=== PATIENT | female | born 1940 | race Caucasian/White ===

== ENCOUNTER 2018-06-25 07:40 | Emergency (ER) | payer MEDICARE, OTHER ==
--- NOTE | 2018-06-25 08:36 | EDM.PDOC ---
ED HPI GENERAL MEDICAL PROBLEM - General Chief Complaint: Upper Extremity Injury/Pain Stated Complaint: LEFT FINGER INJURY Time Seen by Provider: 06/25/18 08:10 Source of Information: Reports: Patient History Limitations: Reports: No Limitations - History of Present Illness INITIAL COMMENTS - FREE TEXT/NARRATIVE: The patient set down her purse at the door and she tripped on the straps and she tried to catch herself and caught her left little finger on the door frame. There is a slight deformity to her left little finger. She denies other injuries. She did not hit her head or hurt her neck. She did not fall. She is right handed. Onset: Gradual Duration: Minutes: Location: Reports: Upper Extremity, Left (little finger) Quality: Reports: Sharp Severity: Moderate Improves with: Reports: Immobilization Worsens with: Reports: Movement Context: Reports: Activity (She tripped and caught her finger on the door frame) Left 5-Little finger Pain Score (Numeric/FACES): 8 - Related Data Allergies Allergy/AdvReac Type Severity Reaction Status Date / Time acetaminophen [From Vicodin] AdvReac Mild Hallucinati Verified 06/25/18 07:53 ons hydrocodone bitartrate AdvReac Mild Hallucinati Verified 06/25/18 07:53 [From Vicodin] ons Home Meds: Home Meds Acebutolol [Sectral] 200 mg PO DAILY 06/11/16 [History] Albuterol [Proair HFA] 2 puff INH Q4H PRN 06/11/16 [History] Fluticasone/Salmeterol [Advair 250-50 Diskus] 50 - 250 mcg IH DAILY 06/11/16 [ History] Losartan Potassium 100 mg PO DAILY 06/11/16 [History] Montelukast [Singulair] 10 mg PO DAILY 06/11/16 [History] Omeprazole 20 mg PO DAILY 06/11/16 [History] Pregabalin [Lyrica] 25 mg PO BEDTIME 06/11/16 [History] amLODIPine Besylate [Norvasc] 2.5 mg PO DAILY #30 tablet 06/11/16 [Rx] hydroCHLOROthiazide [Hydrochlorothiazide] 25 mg PO DAILY 06/11/16 [History] prednisoLONE Acetate [Pred Forte] 1 drop EYELF TID 06/11/16 [History] traMADol [Ultram] 50 mg PO Q6H PRN #20 tab 06/25/18 [Rx] Past Medical History HEENT History: Reports: Cataract, Impaired Vision, Other (See Below) Other HEENT History: strep throat, wears reading glasses, "hystoplasmosis left eye" Cardiovascular History: Reports: Heart Murmur, Hypertension, Other (See Below) Other Cardiovascular History: mitral valve prolapse. Respiratory History: Reports: Asthma Other Gastrointestinal History: Inguinal hernias x3 Genitourinary History: Reports: UTI, Recurrent VP PRODUCTION History: Reports: Other VP PRODUCTION History: , hysterectomy Musculoskeletal History: Reports: Fracture Other Musculoskeletal History: tailbone, L) ankle. Hematologic History: Reports: Anemia - Infectious Disease History Infectious Disease History: Reports: Chicken Pox, Measles, Mumps - Past Surgical History HEENT Surgical History: Reports: Cataract Surgery GI Surgical History: Reports: Appendectomy Female Surgical History: Reports: Section, Hysterectomy Musculoskeletal Surgical History: Reports: Hip Replacement, Knee Replacement, Other (See Below) Other Musculoskeletal Surgeries/Procedures:: back surgery. Social & Family History - Tobacco Use Smoking Status *Q: Never Smoker Second Hand Smoke Exposure: No - Caffeine Use Caffeine Use: Reports: Tea - Recreational Drug Use Recreational Drug Use: No Review of Systems - Review of Systems Review Of Systems: See Below Constitutional: Reports: No Symptoms Eyes: Reports: No Symptoms Ears: Reports: No Symptoms Nose: Reports: No Symptoms Mouth/Throat: Reports: No Symptoms Respiratory: Reports: No Symptoms Cardiovascular: Reports: No Symptoms GI/Abdominal: Reports: No Symptoms Genitourinary: Reports: No Symptoms Musculoskeletal: Reports: Other (Left little finger pain) ED EXAM, GENERAL - Physical Exam Exam: See Below Exam Limited By: No Limitations General Appearance: Alert, No Apparent Distress Ears: Normal External Exam Nose: Normal Inspection Head: Atraumatic, Normocephalic Neck: Normal Inspection Respiratory/Chest: No Respiratory Distress Extremities: Other (Ecchymosis to the volar aspect of the left 5th finger. Pain upon palpation. Good sensation and capillary reill. The PIP joint is extended and the DIP joint is flexed. The patient cannot flex her finger.) Course - Vital Signs Last Recorded V/S: Last Vital Signs Temp 98.6 F 06/25/18 07:45 Pulse 72 06/25/18 07:45 Resp 16 06/25/18 07:45 BP 210/108 H 06/25/18 07:45 Pulse Ox 93 L 06/25/18 07:45 - Orders/Labs/Meds Orders: Active Orders 24 hr Category Date Time Status Hand Comp Min 3V Lt [CR] Stat Exams 06/25/18 08:03 Taken - Re-Assessments/Exams Free Text/Narrative Re-Assessment/Exam: 06/25/18 08:41 Her x-ray shows no fracture. I feel she has a flexor tendon rupture. I will put her in a finger splint and have her follow up with Dr Ross or one of his partners. Departure - Departure Time of Disposition: 08:45 Disposition: Home, Self-Care 01 Condition: Good Clinical Impression: Injury of flexor tendon of left hand Qualifiers: Encounter type: initial encounter Qualified Code(s): S66.802A - Unspecified injury of other specified muscles, fascia and tendons at wrist and hand level, left hand, initial encounter - Discharge Information *PRESCRIPTION DRUG MONITORING PROGRAM REVIEWED*: No *COPY OF PRESCRIPTION DRUG MONITORING REPORT IN PATIENT BRITTANI: No Prescriptions: traMADol [Ultram] 50 mg PO Q6H PRN #20 tab PRN Reason: Pain Referrals: Bart Antoine Jr, MD [Primary Care Provider] - David Ross MD [Consulting Physician] - 1 Week Additional Instructions: Ice your finger for 15 minutes 3 times per day for 2 days. Wear the splint for comfort. Take motrin or tylenol for pain. You may also take a tramadol for pain. Call Dr [facility] to follow up or with one of his partners. - My Orders Last 24 Hours: My Active Orders 06/25/18 08:03 Hand Comp Min 3V Lt [CR] Stat - Assessment/Plan Last 24 Hours: My Active Orders 06/25/18 08:03 Hand Comp Min 3V Lt [CR] Stat
[2018-06-25 08:42] VITALS: BP 150/81
[2018-06-25] MEDS ORDERED: traMADol 50 MG Tab PO ONE (08:42)
--- NOTE | 2018-06-28 10:03 | CR ---
Left hand: Four views of the left hand were obtained. Comparison: No previous hand study. Scattered joint space narrowing is noted within the DIP, PIP and within several MCP joints. Severe joint space narrowing is noted within the CMC joint of the thumb. Bony structures are osteopenic. There is abnormal angulation being seen within the MCP joint of the thumb likely representing soft tissue ligament laxity if patient has no acute injury to the thumb. No acute abnormality is suspected. Impression: 1. Degenerative change as noted above. Osteopenia. Diagnostic code #2
== END 2018-06-25 08:50 | disposition home or self-care (01) ==
LOC: JD.ED 07:40
DX: S66.107A Unspecified injury of flexor muscle, fascia and tendon of left little finger at wrist and hand level, initial encounter (principal); S60.052A Contusion of left little finger without damage to nail, initial encounter; W23.1XXA Caught, crushed, jammed, or pinched between stationary objects, initial encounter; Z88.8 Allergy status to other drugs, medicaments and biological substances; Z79.899 Other long term (current) drug therapy
CPT/HCPCS: 73130; 99284; A9270; 99283

== ENCOUNTER 2020-06-27 13:38 | Inpatient (IN) | payer MEDICARE, OTHER ==
[2020-06-27] MEDS ORDERED: Ondansetron 4 MG/2 ML SDV IVPUSH ONE (14:17)
[2020-06-27] MEDS ORDERED: Sodium Chloride 0.9% 10 ML Syringe FLUSH PRN (14:17)
--- NOTE | 2020-06-27 14:22 | EDM.PDOC ---
ED HPI GENERAL MEDICAL PROBLEM - General Chief Complaint: Respiratory Problem Stated Complaint: FEVER/UNABLE TO EAT/NAUSEA/VOMITING Time Seen by Provider: 06/27/20 13:46 Source of Information: Reports: Patient History Limitations: Reports: No Limitations - History of Present Illness INITIAL COMMENTS - FREE TEXT/NARRATIVE: The patient presents with a cough, fever, nausea, vomiting, diarrhea and shortness of breath. She also has generalized weakness. This started last week. She saw her doctor on Sunday because she had urinary symptoms. She was put on an antibiotic. She started with the symptoms shortly after. Her temp has been low grade at about 100.7. She has been very weak and had no appetite. She has nausea, vomiting and diarrhea. She has a slight cough and shortness of breath. She has a history of asthma. She has no chest pain. She had a family member that found out 10 days ago they were positive. She was exposed to them. She has a history of mitral valve prolapse and HTN. Her oxygen saturations when they brought her back into the room were 75%. They put her on some oxygen and she went up into the low 90s. She did loose her sense of taste and smell. Onset: Gradual Duration: Week(s): Severity: Moderate Improves with: Reports: None Worsens with: Reports: None Associated Symptoms: Reports: Cough, Fever/Chills, Loss of Appetite, Nausea/Vomiting, Shortness of Breath. Denies: Chest Pain, Headaches - Related Data Allergies Allergy/AdvReac Type Severity Reaction Status Date / Time acetaminophen [From Vicodin] AdvReac Mild Hallucinati Verified 06/27/20 14:00 ons hydrocodone bitartrate AdvReac Mild Hallucinati Verified 06/27/20 14:00 [From Vicodin] ons Home Meds: Home Meds Acebutolol [Sectral] 200 mg PO DAILY 06/11/16 [History] Albuterol [Proair HFA] 2 puff INH Q4H PRN 06/11/16 [History] Fluticasone Propion/Salmeterol [Advair 250-50 Diskus] 50 - 250 mcg IH BID 06/11/16 [History] Losartan Potassium 100 mg PO DAILY 06/11/16 [History] Montelukast [Singulair] 10 mg PO BEDTIME 06/11/16 [History] Omeprazole 20 mg PO DAILY 06/11/16 [History] amLODIPine Besylate [Norvasc] 2.5 mg PO DAILY #30 tablet 06/11/16 [Rx] prednisoLONE acetate [Pred Forte] 1 drop EYELF TID 06/11/16 [History] Cholecalciferol (Vitamin D3) [Vitamin D3] 1,000 units PO DAILY 06/27/20 [History] Cyanocobalamin (Vitamin B-12) [Vitamin B-12] 1,000 mcg PO DAILY 06/27/20 [History] Famotidine 20 mg PO BEDTIME 06/27/20 [History] Lutein/Minerals/Vit A,C & E [Ocuvite] 1 tab PO DAILY 06/27/20 [History] Niacin 250 mg PO DAILY 06/27/20 [History] Ranitidine HCl [Acid Supersonic Engineer] 75 mg PO BEDTIME 06/27/20 [History] oxyCODONE 5 mg PO DAILY PRN 06/27/20 [History] Past Medical History HEENT History: Reports: Cataract, Impaired Vision, Other (See Below) Other HEENT History: strep throat, wears reading glasses, "hystoplasmosis left eye" Cardiovascular History: Reports: Heart Murmur, Hypertension, Other (See Below) Other Cardiovascular History: mitral valve prolapse. 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 Hematologic History: Reports: Anemia - Infectious Disease History Infectious Disease History: Reports: Chicken Pox, Measles, Mumps - Past Surgical History HEENT Surgical History: Reports: Cataract Surgery GI Surgical History: Reports: Appendectomy Female Surgical History: Reports: Section, Hysterectomy Musculoskeletal Surgical History: Reports: Hip Replacement, Knee Replacement, Other (See Below) Other Musculoskeletal Surgeries/Procedures:: back surgery. Social & Family History - Tobacco Use Smoking Status *Q: Never Smoker Second Hand Smoke Exposure: No - Caffeine Use Caffeine Use: Reports: None - Recreational Drug Use Recreational Drug Use: No ED ROS GENERAL - Review of Systems Review Of Systems: See Below Constitutional: Reports: Fever, Chills, Malaise, Weakness, Fatigue HEENT: Reports: No Symptoms Respiratory: Reports: Shortness of Breath, Cough Cardiovascular: Reports: No Symptoms Endocrine: Reports: Fatigue GI/Abdominal: Reports: Anorexia, Diarrhea, Nausea, Vomiting. Denies: Abdominal Pain : Reports: No Symptoms ED EXAM, GENERAL - Physical Exam Exam: See Below Exam Limited By: No Limitations General Appearance: Alert, No Apparent Distress Ears: Normal External Exam Nose: Normal Inspection Head: Atraumatic, Normocephalic Neck: Normal Inspection Respiratory/Chest: No Respiratory Distress, Decreased Breath Sounds Cardiovascular: Regular Rate, Rhythm, No Edema, No Murmur GI/Abdominal: Soft, Non-Tender, No Organomegaly, No Mass Back Exam: Normal Inspection Extremities: Normal Inspection Course - Vital Signs Last Recorded V/S: Last Vital Signs Temp 98.1 F 06/27/20 13:54 Pulse 79 06/27/20 13:54 Resp 18 06/27/20 13:54 BP 148/80 H 06/27/20 13:54 Pulse Ox 95 06/27/20 14:57 - Orders/Labs/Meds Orders: Active Orders 24 hr Category Date Time Status Cardiac Monitoring [RC] . DIRECTED Care 06/27/20 14:17 Active Oxygen Therapy [RC] PRN Care 06/27/20 14:17 Active Peripheral IV Care [RC] . DIRECTED Care 06/27/20 14:18 Active CULTURE BLOOD [BC] Stat Lab 06/27/20 15:15 Received CULTURE BLOOD [BC] Stat Lab 06/27/20 15:15 Received UA RFX DEVEN AND CULT IF INDIC [URIN] Stat Lab 06/27/20 14:20 Ordered Sodium Chloride 0.9% [Normal Saline] 1,000 ml Med 06/27/20 14:30 Active IV .BOLUS Sodium Chloride 0.9% [Saline Flush] Med 06/27/20 14:17 Active 10 ml FLUSH ASDIRECTED PRN Blood Culture x2 Reflex Set [OM.PC] Stat Oth 06/27/20 14:21 Ordered ED Antiemetic Medication Reflex [OM.PC] Stat Oth 06/27/20 14:18 Ordered Peripheral IV Insertion Adult [OM.PC] Stat Oth 06/27/20 14:17 Ordered Medication Orders Sodium Chloride (Normal Saline) 1,000 mls @ 1,000 mls/hr IV .BOLUS SACHIN Last Admin: 06/27/20 14:38 Dose: 1,000 mls/hr Documented by: SHERON Sodium Chloride (Saline Flush) 10 ml FLUSH ASDIRECTED PRN PRN Reason: Keep Vein Open Last Admin: 06/27/20 15:36 Dose: 10 ml Documented by: SHERON Labs: Laboratory Tests 06/27/20 06/27/20 06/27/20 Range/Units 14:05 14:05 14:05 WBC 5.50 (3.98-10.04) K/mm3 RBC 4.61 (3.98-5.22) M/mm3 Hgb 14.8 (11.2-15.7) gm/dl Hct 40.8 (34.1-44.9) % MCV 88.5 (79.4-94.8) fl MCH 32.1 (25.6-32.2) pg MCHC 36.3 H (32.2-35.5) g/dl RDW Std Deviation 45.1 (36.4-46.3) fL Plt Count 129 L (182-369) K/mm3 MPV 9.3 L (9.4-12.3) fl Neut % (Auto) 81.4 H (34.0-71.1) % Lymph % (Auto) 9.8 L (19.3-51.7) % Pettis % (Auto) 8.2 (4.7-12.5) % Eos % (Auto) 0.2 L (0.7-5.8) Baso % (Auto) 0.2 (0.1-1.2) % Neut # (Auto) 4.48 (1.56-6.13) K/mm3 Lymph # (Auto) 0.54 L (1.18-3.74) K/mm3 Pettis # (Auto) 0.45 H (0.24-0.36) K/mm3 Eos # (Auto) 0.01 L (0.04-0.36) K/mm3 Baso # (Auto) 0.01 (0.01-0.08) K/mm3 Manual Slide Review Abnormal smear D-Dimer, Quantitative 0.68 H (0.19-0.50) mg/L Puncture Site ABG pH (7.35-7.45) ABG pCO2 (35.0-45.0) mmHg ABG pO2 (80.0-100.0) mmHg ABG HCO3 (22.0-26.0) meq/L ABG O2 Saturation (96.0-97.0) % ABG Base Excess (-2-2.0) Negrito Test A-a Gradient mmHg O2 Delivery Device Oxygen Flow Rate FiO2 (21.00-100.00) % Sodium 130 L (136-145) mEq/L Potassium 3.6 (3.5-5.1) mEq/L Chloride 97 L (98-107) mEq/L Carbon Dioxide 25 (21-32) mEq/L Anion Gap 11.6 (5-15) BUN 15 (7-18) mg/dL Creatinine 0.9 (0.55-1.02) mg/dL Est Cr Clr Drug Dosing 45.12 mL/min Estimated GFR (MDRD) 60 (>60) mL/min BUN/Creatinine Ratio 16.7 (14-18) Glucose 114 (83-115) mg/dL Lactic Acid (0.4-2.0) mmol/L Calcium 8.9 (8.5-10.1) mg/dL Ferritin (8-252) ng/ml Total Bilirubin 0.6 (0.2-1.0) mg/dL AST 27 (15-37) U/L ALT 21 (14-59) U/L Alkaline Phosphatase 57 (46-116) U/L Lactate Dehydrogenase 294 H (81-234) U/L C-Reactive Protein 19.5 H* (<1.0) mg/dL Total Protein 7.1 (6.4-8.2) g/dl Albumin 3.0 L (3.4-5.0) g/dl Globulin 4.1 gm/dL Albumin/Globulin Ratio 0.7 L (1-2) SARS Virus RNA (PCR) (NEGATIVE) 06/27/20 06/27/20 06/27/20 Range/Units 14:05 14:15 14:30 WBC (3.98-10.04) K/mm3 RBC (3.98-5.22) M/mm3 Hgb (11.2-15.7) gm/dl Hct (34.1-44.9) % MCV (79.4-94.8) fl MCH (25.6-32.2) pg MCHC (32.2-35.5) g/dl RDW Std Deviation (36.4-46.3) fL Plt Count (182-369) K/mm3 MPV (9.4-12.3) fl Neut % (Auto) (34.0-71.1) % Lymph % (Auto) (19.3-51.7) % Pettis % (Auto) (4.7-12.5) % Eos % (Auto) (0.7-5.8) Baso % (Auto) (0.1-1.2) % Neut # (Auto) (1.56-6.13) K/mm3 Lymph # (Auto) (1.18-3.74) K/mm3 Pettis # (Auto) (0.24-0.36) K/mm3 Eos # (Auto) (0.04-0.36) K/mm3 Baso # (Auto) (0.01-0.08) K/mm3 Manual Slide Review D-Dimer, Quantitative (0.19-0.50) mg/L Puncture Site Rt radial ABG pH 7.45 (7.35-7.45) ABG pCO2 29.5 L (35.0-45.0) mmHg ABG pO2 61.0 L (80.0-100.0) mmHg ABG HCO3 20.0 L (22.0-26.0) meq/L ABG O2 Saturation 91.0 L (96.0-97.0) % ABG Base Excess -2.5 L (-2-2.0) Negrito Test Positive A-a Gradient 130 mmHg O2 Delivery Device Nasal cannula Oxygen Flow Rate 3.0 FiO2 32.00 (21.00-100.00) % Sodium (136-145) mEq/L Potassium (3.5-5.1) mEq/L Chloride (98-107) mEq/L Carbon Dioxide (21-32) mEq/L Anion Gap (5-15) BUN (7-18) mg/dL Creatinine (0.55-1.02) mg/dL Est Cr Clr Drug Dosing mL/min Estimated GFR (MDRD) (>60) mL/min BUN/Creatinine Ratio (14-18) Glucose (83-115) mg/dL Lactic Acid (0.4-2.0) mmol/L Calcium (8.5-10.1) mg/dL Ferritin 323 H (8-252) ng/ml Total Bilirubin (0.2-1.0) mg/dL AST (15-37) U/L ALT (14-59) U/L Alkaline Phosphatase (46-116) U/L Lactate Dehydrogenase (81-234) U/L C-Reactive Protein (<1.0) mg/dL Total Protein (6.4-8.2) g/dl Albumin (3.4-5.0) g/dl Globulin gm/dL Albumin/Globulin Ratio (1-2) SARS Virus RNA (PCR) Positive H (NEGATIVE) 06/27/20 Range/Units 15:15 WBC (3.98-10.04) K/mm3 RBC (3.98-5.22) M/mm3 Hgb (11.2-15.7) gm/dl Hct (34.1-44.9) % MCV (79.4-94.8) fl MCH (25.6-32.2) pg MCHC (32.2-35.5) g/dl RDW Std Deviation (36.4-46.3) fL Plt Count (182-369) K/mm3 MPV (9.4-12.3) fl Neut % (Auto) (34.0-71.1) % Lymph % (Auto) (19.3-51.7) % Pettis % (Auto) (4.7-12.5) % Eos % (Auto) (0.7-5.8) Baso % (Auto) (0.1-1.2) % Neut # (Auto) (1.56-6.13) K/mm3 Lymph # (Auto) (1.18-3.74) K/mm3 Pettis # (Auto) (0.24-0.36) K/mm3 Eos # (Auto) (0.04-0.36) K/mm3 Baso # (Auto) (0.01-0.08) K/mm3 Manual Slide Review D-Dimer, Quantitative (0.19-0.50) mg/L Puncture Site ABG pH (7.35-7.45) ABG pCO2 (35.0-45.0) mmHg ABG pO2 (80.0-100.0) mmHg ABG HCO3 (22.0-26.0) meq/L ABG O2 Saturation (96.0-97.0) % ABG Base Excess (-2-2.0) Negrito Test A-a Gradient mmHg O2 Delivery Device Oxygen Flow Rate FiO2 (21.00-100.00) % Sodium (136-145) mEq/L Potassium (3.5-5.1) mEq/L Chloride (98-107) mEq/L Carbon Dioxide (21-32) mEq/L Anion Gap (5-15) BUN (7-18) mg/dL Creatinine (0.55-1.02) mg/dL Est Cr Clr Drug Dosing mL/min Estimated GFR (MDRD) (>60) mL/min BUN/Creatinine Ratio (14-18) Glucose (83-115) mg/dL Lactic Acid 1.7 (0.4-2.0) mmol/L Calcium (8.5-10.1) mg/dL Ferritin (8-252) ng/ml Total Bilirubin (0.2-1.0) mg/dL AST (15-37) U/L ALT (14-59) U/L Alkaline Phosphatase (46-116) U/L Lactate Dehydrogenase (81-234) U/L C-Reactive Protein (<1.0) mg/dL Total Protein (6.4-8.2) g/dl Albumin (3.4-5.0) g/dl Globulin gm/dL Albumin/Globulin Ratio (1-2) SARS Virus RNA (PCR) (NEGATIVE) Meds: Medications Generic Name Dose Route Start Last Admin Trade Name Freq PRN Reason Stop Dose Admin Sodium Chloride 1,000 mls @ 1,000 mls/hr 06/27/20 14:30 06/27/20 14:38 Normal Saline IV 1,000 mls/hr .BOLUS SACHIN Administration Sodium Chloride 10 ml 06/27/20 14:17 06/27/20 15:36 Saline Flush FLUSH 10 ml ASDIRECTED PRN Administration Keep Vein Open Discontinued Medications Generic Name Dose Route Start Last Admin Trade Name Freq PRN Reason Stop Dose Admin Ondansetron HCl 4 mg 06/27/20 14:17 06/27/20 14:38 Zofran IVPUSH 06/27/20 14:18 4 mg ONETIME ONE Administration - Re-Assessments/Exams Free Text/Narrative Re-Assessment/Exam: 06/27/20 16:04 I ordered oxygen, IV NS 500mL bolus, zofran 4mg IV, labs, ABG, blood cultures, UA, CXR and COVID 19 test. Her CBC looks good. Her D-dimer was elevated at 0.68. Her PH was normal at 7.45. Her PCO2 is low at 29.5. Her PO2 is low at 61. I had my nurse turn up her oxygen to 4L. Her Na is low at 130. Her ferritin is elevated at 323. Her LDH is elevated at 294. Her CRP is elevated at 19.5. Her CXR shows hazy increased density within both upper lungs compatible with pneumonia either bacterial or viral. I am waiting for the COVID 19 test and a few other tests. 06/27/20 16:48 The patient is COVID [address] Bowie and she agreed to the admission. Departure - Departure Time of Disposition: 17:00 Disposition: Admitted As Inpatient 64 Condition: Serious Clinical Impression: COVID-19, Viral pneumonia, Hypoxia, Hyponatremia - Discharge Information Referrals: Bart Antoine Jr, MD [Primary Care Provider] - Forms: ED Department Discharge Sepsis Event Note (ED) - Evaluation Sepsis Screening Result: No Definite Risk - Focused Exam Vital Signs: Vital Signs Temp Pulse Resp BP Pulse Ox Pulse Ox 06/27/20 14:57 95 06/27/20 13:54 98.1 F 79 18 148/80 H 75 L - My Orders Last 24 Hours: My Active Orders 06/27/20 14:17 Cardiac Monitoring [RC] . DIRECTED Oxygen Therapy [RC] PRN Sodium Chloride 0.9% [Saline Flush] 10 ml FLUSH ASDIRECTED PRN Peripheral IV Insertion Adult [OM.PC] Stat 06/27/20 14:18 Peripheral IV Care [RC] . DIRECTED ED Antiemetic Medication Reflex [OM.PC] Stat 06/27/20 14:20 UA RFX DEVEN AND CULT IF INDIC [URIN] Stat 06/27/20 14:21 Blood Culture x2 Reflex Set [OM.PC] Stat 06/27/20 14:30 Sodium Chloride 0.9% [Normal Saline] 1,000 ml IV .BOLUS 06/27/20 15:15 CULTURE BLOOD [BC] Stat CULTURE BLOOD [BC] Stat - Assessment/Plan Last 24 Hours: My Active Orders 06/27/20 14:17 Cardiac Monitoring [RC] . DIRECTED Oxygen Therapy [RC] PRN Sodium Chloride 0.9% [Saline Flush] 10 ml FLUSH ASDIRECTED PRN Peripheral IV Insertion Adult [OM.PC] Stat 06/27/20 14:18 Peripheral IV Care [RC] . DIRECTED ED Antiemetic Medication Reflex [OM.PC] Stat 06/27/20 14:20 UA RFX DEVEN AND CULT IF INDIC [URIN] Stat 06/27/20 14:21 Blood Culture x2 Reflex Set [OM.PC] Stat 06/27/20 14:30 Sodium Chloride 0.9% [Normal Saline] 1,000 ml IV .BOLUS 06/27/20 15:15 CULTURE BLOOD [BC] Stat CULTURE BLOOD [BC] Stat
[2020-06-27] MEDS: Sodium Chloride 0.9% 1,000 ML IV SCH ×3 (14:38→20:57)
--- NOTE | 2020-06-27 15:23 | CR ---
Chest: Portable view of the chest was obtained. Comparison: Prior chest x-ray of 06/11/16. Hazy increased density is noted within both upper lungs. Heart size is normal. Tortuous thoracic aorta is noted. Bony structures are osteopenic. Scattered degenerative change is noted within the spine. Impression: 1. Hazy increased density within both upper lungs compatible with pneumonia either bacterial or viral. 2. No other acute finding is appreciated. Diagnostic code #3 This report was dictated in MDT
--- NOTE | 2020-06-27 17:40 | PCM.HP.2 ---
H&P History of Present Illness - General Date of Service: 06/27/20 - History of Present Illness Initial Comments - Free Text/Narative: This is an 80 year old female with past medical history of asthma who comes to the ED complaining of worsening fatigue, general malaise and chills. As per patient last week she went to [place] with daughter who was tested earlier this week and came back positive. Stated she started getting sick on Sunday with dysuria, generalized aches and pains. At that point she went to see PCP who performed a UA that came back positive and started her on Nitrofurantoin. She was also having aches and pains about a week ago but still had enough energy to get around and was not doing a lot. She has had pneumonia multiple times, so at this point knows her body and knows when it is starting. He oral intake has been declining steadily and later on associated with nausea and vomiting, nasal congestion and productive cough of yellowish sputum since Sunday. Her aches got better but continued to feel fatigued, she also has been unable to keep anything down. Denies any fevers, highest temp recorded at 100.7 last night. Has been using her rescue inhaler twice a day - Related Data Allergies/Adverse Reactions: Allergies Allergy/AdvReac Type Severity Reaction Status Date / Time acetaminophen [From Vicodin] AdvReac Mild Hallucinati Verified 06/28/20 02:51 ons hydrocodone bitartrate AdvReac Mild Hallucinati Verified 06/28/20 02:51 [From Vicodin] ons Home Medications: Home Meds Acebutolol [Sectral] 200 mg PO DAILY 06/11/16 [History] Albuterol [Proair HFA] 2 puff INH Q4H PRN 06/11/16 [History] Fluticasone Propion/Salmeterol [Advair 250-50 Diskus] 50 - 250 mcg IH BID 06/11/16 [History] Losartan Potassium 100 mg PO DAILY 06/11/16 [History] Montelukast [Singulair] 10 mg PO BEDTIME 06/11/16 [History] Omeprazole 20 mg PO DAILY 06/11/16 [History] amLODIPine Besylate [Norvasc] 2.5 mg PO DAILY #30 tablet 06/11/16 [Rx] prednisoLONE acetate [Pred Forte] 1 drop EYELF TID 06/11/16 [History] Cholecalciferol (Vitamin D3) [Vitamin D3] 1,000 units PO DAILY 06/27/20 [History] Cyanocobalamin (Vitamin B-12) [Vitamin B-12] 1,000 mcg PO DAILY 06/27/20 [History] Famotidine 20 mg PO BEDTIME 06/27/20 [History] Lutein/Minerals/Vit A,C & E [Ocuvite] 1 tab PO DAILY 06/27/20 [History] Niacin 250 mg PO DAILY 06/27/20 [History] Ranitidine HCl [Acid Winchman/Crane Operator] 75 mg PO BEDTIME 06/27/20 [History] oxyCODONE 5 mg PO DAILY PRN 06/27/20 [History] Nitrofurantoin Monohyd/M-Cryst [Macrobid 100 mg Capsule] 100 mg PO BID 06/28/20 [History] rOPINIRole [Requip] 1 - 1.5 mg PO BEDTIME PRN MDD 1.5 06/28/20 [History] Past Medical History HEENT History: Reports: Cataract, Impaired Vision, Other (See Below) Other HEENT History: strep throat, wears reading glasses, "hystoplasmosis left eye" Cardiovascular History: Reports: Heart Murmur, Hypertension, Other (See Below) Other Cardiovascular History: mitral valve prolapse. Respiratory History: Reports: Asthma Other Gastrointestinal History: Inguinal hernias x3 Genitourinary History: Reports: UTI, Recurrent FRAME FIXER History: Reports: Other OB/BYN History: , hysterectomy Musculoskeletal History: Reports: Fracture Other Musculoskeletal History: tailbone, L) ankle. Hematologic History: Reports: Anemia - Infectious Disease History Infectious Disease History: Reports: Chicken Pox, Measles, Mumps - Past Surgical History HEENT Surgical History: Reports: Cataract Surgery GI Surgical History: Reports: Appendectomy Female Surgical History: Reports: Section, Hysterectomy Musculoskeletal Surgical History: Reports: Hip Replacement, Knee Replacement, Other (See Below) Other Musculoskeletal Surgeries/Procedures:: back surgery. Social & Family History - Tobacco Use Smoking Status *Q: Never Smoker Second Hand Smoke Exposure: No - Caffeine Use Caffeine Use: Reports: None - Recreational Drug Use Recreational Drug Use: No H&P Review of Systems - Review of Systems: Review Of Systems: See Below General: Reports: Chills, Malaise, Weakness, Fatigue, Decreased Appetite, Weight Loss. Denies: Fever, Night Sweats, Diaphoresis HEENT: Reports: Headaches ( took advil which resolved it). Denies: Rhinitis, Sore Throat Pulmonary: Reports: Shortness of Breath, Pleuritic Chest Pain, Cough, Sputum. Denies: Wheezing Cardiovascular: Reports: Chest Pain, Dyspnea on Exertion, Lightheadedness (yesterday and today). Denies: Palpitations, Orthopnea, PND Gastrointestinal: Reports: Abdominal Pain, Anorexia, Decreased Appetite, Nausea, Vomiting. Denies: Constipation, Diarrhea, Difficulty Swallowing, Distension, Flatus Genitourinary: Reports: Dysuria, Frequency, Burning, Pain, Urgency Musculoskeletal: Reports: Joint Pain, Muscle Pain. Denies: Joint Swelling, Muscle Stiffness Skin: Denies: Cyanosis, Jaundice, Mottled, Pallor Neurological: Reports: Dizziness Exam - Exam Exam: See Below - Vital Signs Vital Signs: Last Vital Signs Temp 98.1 F 06/27/20 13:54 Pulse 79 06/27/20 13:54 Resp 18 06/27/20 13:54 BP 148/80 H 06/27/20 13:54 Pulse Ox 95 06/27/20 14:57 Weight: 63.503 kg - Exam General: Alert, Oriented, Cooperative, Moderate Distress HEENT: Conjunctiva Clear, EACs Clear, EOMI, Mucosa Moist & [place] Neck: Supple, Trachea Midline, +2 Carotid Pulse wo Bruit, Full Range of Motion. No: Lymphadenopathy Lungs: Clear to Auscultation, Normal Respiratory Effort, Decreased Breath Sounds, Crackles (L base). No: Rales, Rhonchi, Rub, Stridor, Wheezing Cardiovascular: Regular Rate, Regular Rhythm. No: Systolic Murmur, Diastolic Murmur, Rubs, Gallop/S3, Gallop/S4 GI/Abdominal Exam: Normal Bowel Sounds, Soft, Non-Tender. No: Distended, Guarding, Rigid, Rebound Back Exam: Normal Inspection. No: CVA Tenderness (L), CVA Tenderness (R), Paraspinal Tenderness, Vertebral Tenderness Extremities: Normal Inspection, Normal Range of Motion, Non-Tender, No Pedal Edema, Normal Capillary Refill Peripheral Pulses: 2+: Radial (L), Radial (R), Dorsalis Pedis (L), Dorsalis Pedis (R) Skin: Dry, Intact, Cool - Patient Data Result Diagrams: 06/29/20 05:13 06/29/20 05:13 Sepsis Event Note - Evaluation Sepsis Screening Result: No Definite Risk - Problem List (1) Acute hypoxemic respiratory failure due to COVID-19 SNOMED Code(s): 128710316 ICD Code: U07.1 - COVID-19; J96.01 - ACUTE RESPIRATORY FAILURE WITH HYPOXIA Status: Acute Current Visit: Yes (2) Asthma SNOMED Code(s): 899094219 ICD Code: J45.909 - UNSPECIFIED ASTHMA, UNCOMPLICATED Status: Acute Current Visit: Yes (3) Mitral valve prolapse SNOMED Code(s): 083227139 ICD Code: I34.1 - NONRHEUMATIC MITRAL (VALVE) PROLAPSE Status: Acute Current Visit: Yes (4) COVID-19 SNOMED Code(s): 143361788 ICD Code: U07.1 - COVID-19 Status: Acute Current Visit: Yes (5) Hypertension SNOMED Code(s): 91433324 ICD Code: I10 - ESSENTIAL (PRIMARY) HYPERTENSION Status: Acute Current Visit: No (6) Hyponatremia SNOMED Code(s): 05437725 ICD Code: E87.1 - HYPO-OSMOLALITY AND HYPONATREMIA Status: Acute Current Visit: Yes (7) Hypomagnesemia SNOMED Code(s): 260960510 ICD Code: E83.42 - HYPOMAGNESEMIA Status: Acute Current Visit: Yes (8) Hypoalbuminemia SNOMED Code(s): 825693248 ICD Code: E88.09 - OTH DISORDERS OF PLASMA-PROTEIN METABOLISM, NEC Status: Acute Current Visit: Yes (9) Intractable nausea and vomiting SNOMED Code(s): 316953362 ICD Code: R11.2 - NAUSEA WITH VOMITING, UNSPECIFIED Status: Acute Current Visit: Yes (10) Acute respiratory alkalosis SNOMED Code(s): 19574947 ICD Code: E87.3 - ALKALOSIS Status: Acute Current Visit: Yes (11) Metabolic alkalosis SNOMED Code(s): 1382671 ICD Code: E87.3 - ALKALOSIS Status: Acute Current Visit: Yes (12) Hypochloremic alkalosis SNOMED Code(s): 10643773 ICD Code: E87.3 - ALKALOSIS Status: Acute Current Visit: Yes (13) Lymphopenia associated with COVID-19 SNOMED Code(s): 512457874 ICD Code: U07.1 - COVID-19; D72.810 - LYMPHOCYTOPENIA Status: Acute Current Visit: Yes (14) Thrombocytopenia SNOMED Code(s): 986115245 ICD Code: D69.6 - THROMBOCYTOPENIA, UNSPECIFIED Status: Acute Current Vis it: Yes (15) Chronic constipation SNOMED Code(s): 293001167 ICD Code: K59.09 - OTHER CONSTIPATION Status: Acute Current Visit: Yes (16) UTI (urinary tract infection) SNOMED Code(s): 09396474 ICD Code: N39.0 - URINARY TRACT INFECTION, SITE NOT SPECIFIED Status: Acute Current Visit: Yes Problem List Initiated/Reviewed/Updated: Yes Assessment/Plan Comment:: ASSESSMENT - Worsening fatigue with malaise and productive cough - Daughter whom she sees regularly was just diagnosed with COVID - History of recurrent pneumonia and asthma - VS on admission : 141/61 (87), 72x', RR 25x', 97.2, 76% on RA - Not on and has never been on O2 at home - Labs on admission: - WBC 10.04 - BMP: Na 127, K 3.6, Cl 91, CO2 32, GFR 60 - DD: 0.49/Ferritin 505/ LDH 338/ ProBNP 3,684/ CRP 6.2 - ABGs: 7.44/44.3/88/29.4/96.5 on 4L NC - Crackles on left base on physical exam and patient in obvious respiratory distress PLAN Acute hypoxemic respiratory failure due to COVID-19 Acute respiratory alkalosis Metabolic alkalosis Hypochloremic alkalosis Lymphopenia associated with COVID-19 Daughter diagnosed with COVID on Thursday 06/21 Malaise and fatigue started 8 days ago Associated with intractable nausea and vomiting as well as dry cough Worsening hypoxemia + decreased mobility in the past week--> will r/o PE PLAN - Start Remdesivir, to complete 5 days - Start Dexamethasone, to complete 10 days - Start Tocilizumab in the morning - CTA chest Intractable nausea and vomiting Hyponatremia Hypomagnesemia Hypochloremia Has not been able to tolerate PO intake in 5 days Borderline K, will replace PLAN - NS @ 125ml/hr x 1 bag - Replace magnesium with 2g IV MgSO4 - Replace 20mEq IV KCl UTI Diagnosed with UTI recently and started on 7 day antibiotic course Still having symptoms although these are improving Has been taking ATBs PLAN - Repeat UA with culture if needed - Continue home medication once available - Request records from Dr. Antoine' office for urine culture results Asthma Controlled as per patient Never been intubated Does not recall last exacerbation PLAN - Continue home management Mitral valve prolapse No acute issues PLAN - Monitor - Request records from [place] [facility]ology Hypertension BP on admission 148/80 PLAN - Continue home medications - PRN Hydralazine Hypoalbuminemia BMI 22 Decreased oral intake in the past week or so Weighed 142 on Sunday PLAN - Prealbumin level - Vitamin levels Chronic constipation Last BM today Scheduled Colace at home PLAN - Continue home medication PROPHYLAXIS DVT- Lovenox GI- home PPI CODE STATUS: FULL CODE DISPOSITION: Patient will be admitted to the regular medical floor on oxygen supplementation, will be started on Remdesivir and Dexamethasone with repeat labs in AM SOCIAL: Lives in [place] with Ambulates without assistance Never drinker or smoker PCP is Dr. Antoine - Mortality Measure Prognosis:: Poor
[2020-06-27] MEDS ORDERED: Sodium Chloride 0.9% 1,000 ML IV SCH (18:15)
[2020-06-27] MEDS ORDERED: Sodium Chloride 0.9% 100 ML IV SCH (19:15)
[2020-06-27] MEDS ORDERED: Iopamidol 755 Mg/ML 100 ML Bottle IVPUSH ONE (19:15)
[2020-06-27] MEDS: Sodium Chloride 0.9% 10 ML Syringe FLUSH PRN ×2 (20:01→20:15)
--- NOTE | 2020-06-27 20:11 | CT ---
CT chest Technique: Multiple axial sections through the chest were obtained. Intravenous contrast was utilized. Study performed as a pulmonary angiogram protocol. Findings: Pulmonary arteries are well-opacified. No filling defects are seen to indicate pulmonary embolism. Mild coronary artery calcifications seen. Atherosclerotic calcification is noted within thoracic aorta. No aneurysm is seen. Mediastinum and hilar regions show no adenopathy or mass. No pericardial thickening is seen. Moderate sized hiatal hernia is seen. Parapelvic cyst is noted within the right kidney which is partially visualized and measures 1.6 cm. Cortical cyst is noted within the left kidney measuring 3.1 cm in size. Patchy areas of increased density are seen on both sides of the chest most prominent within both upper lungs. Findings are most likely infectious in etiology and most likely viral given their distribution. Small area of focal fatty eventration is noted within the right hemidiaphragm. Bone window settings were reviewed which shows diffuse degenerative change within the spine. Impression: 1. No findings of pulmonary embolism. 2. Patchy areas of increased density within both sides chest most prominent within both upper lungs. Findings most likely relate to viral pneumonia. 3. Other findings believed to be nonacute as described above. Diagnostic code #3 Study was dictated in MDT
[2020-06-27] MEDS: guaiFENesin 100 MG/5 ML Soln 10 ML UD Cup PO SCH (20:55)
[2020-06-27] MEDS: Benzonatate 100 MG Cap PO SCH (20:55)
[2020-06-27] MEDS: Ondansetron 4 MG/2 ML SDV IVPUSH SCH (21:04)
[2020-06-27] MEDS: oxyCODONE 5 MG Tab PO PRN (22:03)
[2020-06-28] MEDS: Ondansetron 4 MG/2 ML SDV IVPUSH SCH (04:12)
[2020-06-28] MEDS: guaiFENesin 100 MG/5 ML Soln 10 ML UD Cup PO SCH ×3 (04:12→18:27)
[2020-06-28] MEDS: Acetaminophen 325 MG Tab PO PRN (04:28)
[2020-06-28] MEDS: Benzonatate 100 MG Cap PO SCH ×3 (08:11→20:20)
[2020-06-28] MEDS: Enoxaparin 40 MG/0.4 ML Syringe SUBCUT SCH (08:11)
[2020-06-28] MEDS: Dexamethasone 10 MG/ML SDV IVPUSH SCH (08:11)
[2020-06-28] MEDS ORDERED: Tocilizumab 400 MG/20 ML SDV SUBCUT SCH (09:45)
[2020-06-28] MEDS: Tocilizumab 400 MG in Sodium Chloride 0.9% 80 ML IV SCH ×2 (11:08→22:00)
[2020-06-28] MEDS ORDERED: Potassium Phosphates 30 MMOLE in Sodium Chloride 0.9% 500 ML IV ONE (12:00)
[2020-06-28] MEDS ORDERED: Sodium Chloride 0.9% 100 ML ONE (16:37)
[2020-06-28] MEDS: Potassium Chloride 10 MEQ in Premix Bag 1 BAG IV SCH ×3 (16:49→18:58)
[2020-06-28] MEDS ORDERED: Sodium Chloride 0.9% 250 ML IV SCH (17:00)
[2020-06-28] MEDS ORDERED: Magnesium Sulfate/Water 4 GM in Premix Bag 1 BAG IV ONE (17:00)
--- NOTE | 2020-06-28 19:27 | PCM.PN ---
- General Info Date of Service: 06/28/20 Subjective Update: Had a difficult time sleeping yesterday due to shortness of breath Tolerated clear liquid diet - Patient Data Vitals - Most Recent: Last Vital Signs Temp 97.1 F 06/28/20 18:16 Pulse 74 06/28/20 18:16 Resp 22 H 06/28/20 18:16 BP 116/58 L 06/28/20 18:16 Pulse Ox 90 L 06/28/20 18:16 Weight - Most Recent: 63.503 kg - Exam General: Alert, Oriented, Cooperative, Moderate Distress HEENT: Pupils Equal, Pupils Reactive, EOMI, Mucous Membr. Moist/[place] Neck: Supple, Trachea Midline, No JVD. No: Lymphadenopathy Lungs: Clear to Auscultation, Normal Respiratory Effort, Crackles. No: Decreased Breath Sounds, Rhonchi, Rub, Stridor, Wheezing Cardiovascular: Regular Rate, Regular Rhythm. No: Murmurs, Gallops, Rubs GI/Abdominal Exam: Normal Bowel Sounds, Soft, Non-Tender. No: Distended, Guarding, Rigid, Rebound Back Exam: Normal Inspection, Full Range of Motion. No: CVA Tenderness (L), CVA Tenderness (R), Paraspinal Tenderness, Vertebral Tenderness Extremities: Normal Inspection, Non-Tender, No Pedal Edema, Normal Capillary Refill Peripheral Pulses: 2+: Radial (L), Radial (R), Dorsalis Pedis (L), Dorsalis Pedis (R) Skin: Warm, Dry, Intact Neurological: No New Focal Deficit Psy/Mental Status: Normal Affect, Normal Mood Sepsis Event Note - Evaluation Sepsis Screening Result: No Definite Risk - Problem List & Annotations (1) Acute hypoxemic respiratory failure due to COVID-19 SNOMED Code(s): 790722604 Code(s): U07.1 - COVID-19; J96.01 - ACUTE RESPIRATORY FAILURE WITH HYPOXIA Status: Acute Current Visit: Yes (2) Asthma SNOMED Code(s): 629048832 Code(s): J45.909 - UNSPECIFIED ASTHMA, UNCOMPLICATED Status: Acute Current Visit: Yes (3) Mitral valve prolapse SNOMED Code(s): 759787566 Code(s): I34.1 - NONRHEUMATIC MITRAL (VALVE) PROLAPSE Status: Acute Current Visit: Yes (4) COVID-19 SNOMED Code(s): 220051574 Code(s): U07.1 - COVID-19 Status: Acute Current Visit: Yes (5) Hypertension SNOMED Code(s): 06912345 Code(s): I10 - ESSENTIAL (PRIMARY) HYPERTENSION Status: Acute Current Visit: No (6) Hyponatremia SNOMED Code(s): 50533701 Code(s): E87.1 - HYPO-OSMOLALITY AND HYPONATREMIA Status: Acute Current Visit: Yes (7) Hypomagnesemia SNOMED Code(s): 874507978 Code(s): E83.42 - HYPOMAGNESEMIA Status: Acute Current Visit: Yes (8) Hypoalbuminemia SNOMED Code(s): 728346647 Code(s): E88.09 - OTH DISORDERS OF PLASMA-PROTEIN METABOLISM, NEC Status: Acute Current Visit: Yes (9) Intractable nausea and vomiting SNOMED Code(s): 845689531 Code(s): R11.2 - NAUSEA WITH VOMITING, UNSPECIFIED Status: Acute Current Visit: Yes (10) Acute respiratory alkalosis SNOMED Code(s): 94164350 Code(s): E87.3 - ALKALOSIS Status: Acute Current Visit: Yes (11) Metabolic alkalosis SNOMED Code(s): 4713102 Code(s): E87.3 - ALKALOSIS Status: Acute Current Visit: Yes (12) Hypochloremic alkalosis SNOMED Code(s): 98196926 Code(s): E87.3 - ALKALOSIS Status: Acute Current Visit: Yes (13) Lymphopenia associated with COVID-19 SNOMED Code(s): 082288524 Code(s): U07.1 - COVID-19; D72.810 - LYMPHOCYTOPENIA Status: Acute Current Visit: Yes (14) Thrombocytopenia SNOMED Code(s): 283858471 Code(s): D69.6 - THROMBOCYTOPENIA, UNSPECIFIED Status: Acute Current Visit: Yes (15) Chronic constipation SNOMED Code(s): 411347968 Code(s): K59.09 - OTHER CONSTIPATION Status: Acute Current Visit: Yes (16) UTI (urinary tract infection) SNOMED Code(s): 36901877 Code(s): N39.0 - URINARY TRACT INFECTION, SITE NOT SPECIFIED Status: Acute Current Visit: Yes (17) Hypophosphatemia SNOMED Code(s): 3380815 Code(s): E83.39 - OTHER DISORDERS OF PHOSPHORUS METABOLISM Status: Acute Current Visit: Yes (18) Hypokalemia SNOMED Code(s): 86773294 Code(s): E87.6 - HYPOKALEMIA Status: Acute Current Visit: Yes - Problem List Review Problem List Initiated/Reviewed/Updated: Yes - Assessment Assessment:: 06/27/20 - Worsening fatigue with malaise and productive cough - Daughter whom she sees regularly was just diagnosed with COVID - History of recurrent pneumonia and asthma - VS on admission : 141/61 (87), 72x', RR 25x', 97.2, 76% on RA - Not on and has never been on O2 at home - Labs on admission: - WBC 10.04 - BMP: Na 127, K 3.6, Cl 91, CO2 32, GFR 60 - DD: 0.49/Ferritin 505/ LDH 338/ ProBNP 3,684/ CRP 6.2 - ABGs: 7.44/44.3/88/29.4/96.5 on 4L NC - Crackles on left base on physical exam and patient in obvious respiratory distress - Worsening hypoxemia + decreased mobility in the past week--> will r/o PE - Has not been able to tolerate PO intake in 5 days - Diagnosed with UTI recently and started on 7 day antibiotic course - Still having symptoms although these are improving - Has been taking ATBs - Asthma controlled, never been intubated and doesn't recall last exacerbation PLAN - Start Remdesivir, to complete 5 days - Start Dexamethasone, to complete 10 days - Start Tocilizumab in the morning - CTA chest - NS @ 125ml/hr x 1 bag - Replace magnesium with 2g IV MgSO4 - Replace 20mEq IV KCl - Repeat UA with culture if needed - Continue home medication once available - Request records from Dr. Antoine' office for urine culture results - Request records from [place] [facility] - Prealbumin level - Vitamin levels Patient will be admitted to the regular medical floor on oxygen supplementation, will be started on Remdesivir and Dexamethasone with repeat labs in AM 06/28/20 Around midnight has to increase NC to 7LPM--> 2hr later to 12LPM-->3AM increased to 15 without change in oxygenation --> placed on hi flow CT negative for PE VS trend - BP 110-148/48-80 - Tmax 100.2 - HR 79-84 - SatO2 > 75% Lab results - Platelets down from 129 to 109 - DD up from 0.68 to 1.03 - Na up from 130 to 133 - K down from 3.6 to 3.2 - Ca down from 8.6 to 7.5 - PO4 down from 2.6 to 2.3 - Mg down from 1..7 to 1.5 - Ferritin up from 323 to 325 - LDH up from 294 to 308 - CRP down from 19.5 to 18 - ABGs overnight : #1- 7.38/33.7/58/19/88---> #2- 7.41/31.8/66/19.9/92.4 - Plan Plan:: Acute hypoxemic respiratory failure due to COVID-19 Acute respiratory alkalosis Metabolic alkalosis Hypochloremic alkalosis Lymphopenia associated with COVID-19 - Continue Remdesivir and Dexamethasone day 2 - Start Tocilizumab today - Start convalescent plasma - Transfer to ICU and place on high flow oxygen Hyponatremia Hypomagnesemia Hypochloremia Hypokalemia - D/C IVF - Replace magnesium, K and PO4 with 4g IV MgSO4, 30mMol of KPO4 and 30mEq of KCl UTI - Restart Macrobid - Repeat UA with culture if needed - Request records from Dr. Antoine' office for urine culture results Asthma - Continue home inhalers Mitral valve prolapse - Request records from [place] [facility] Hypertension - Continue home medications - PRN Hydralazine Hypoalbuminemia - Prealbumin level - Vitamin levels - Dietary consult - Start nutritional supplement Chronic constipation - Continue home medication Intractable nausea and vomiting, resolved PROPHYLAXIS DVT- Lovenox GI- home PPI CODE STATUS: FULL CODE DISPOSITION: Patient will be transferred to the ICU for hi flow oxygen and strict isolation, continue current treatment.
[2020-06-28] MEDS: REMDESIVIR (EUA) 100 MG in Sodium Chloride 0.9% 100 ML IV SCH (20:19)
[2020-06-28] MEDS: Nitrofurantoin Monohydrate/Macrocrystalline 100 MG Cap PO SCH (20:20)
[2020-06-28] MEDS: prednisoLONE Acetate 1% Ophth Susp 5 ML Bottle EYELF SCH (20:20)
[2020-06-28] MEDS: Formoterol/Mometasone 200-5 MCG 8.8 GM Inhaler IH SCH (20:46)
[2020-06-28] MEDS: rOPINIRole 1 MG Tab PO PRN (21:57)
[2020-06-28] MEDS: oxyCODONE 5 MG Tab PO PRN (23:42)
[2020-06-29] MEDS: guaiFENesin 100 MG/5 ML Soln 10 ML UD Cup PO SCH ×5 (00:16→17:34)
[2020-06-29] MEDS: Ondansetron 4 MG/2 ML SDV IVPUSH PRN (06:29)
[2020-06-29] MEDS: Formoterol/Mometasone 200-5 MCG 8.8 GM Inhaler IH SCH ×2 (08:19→20:39)
[2020-06-29] MEDS: Dexamethasone 10 MG/ML SDV IVPUSH SCH (08:53)
[2020-06-29] MEDS: Niacin 500 MG Tab.ER PO SCH (08:53)
[2020-06-29] MEDS: amLODIPine 2.5 MG Tab PO SCH (08:54)
[2020-06-29] MEDS: Nitrofurantoin Monohydrate/Macrocrystalline 100 MG Cap PO SCH ×2 (08:55→20:41)
[2020-06-29] MEDS: Benzonatate 100 MG Cap PO SCH ×3 (08:55→20:41)
[2020-06-29] MEDS: Losartan 100 MG Tab PO SCH (08:55)
[2020-06-29] MEDS: Enoxaparin 40 MG/0.4 ML Syringe SUBCUT SCH (08:56)
[2020-06-29] MEDS ORDERED: ACEBUTOLOL 200 MG PO SCH (09:00)
[2020-06-29] MEDS: prednisoLONE Acetate 1% Ophth Susp 5 ML Bottle EYELF SCH ×3 (09:06→20:45)
--- NOTE | 2020-06-29 12:08 | PCM.PN ---
- General Info Date of Service: 06/29/20 (.) Subjective Update: Slept better Shortness of breath is the same Tolerating diet No complaints - Patient Data Vitals - Most Recent: Last Vital Signs Temp 97.5 F 06/29/20 08:00 Pulse 74 06/28/20 18:16 Resp 24 H 06/29/20 08:00 BP 133/69 06/29/20 08:55 Pulse Ox 98 06/29/20 10:00 Weight - Most Recent: 65.136 kg - Exam General: Alert, Oriented, Cooperative, Mild Distress, Moderate Distress HEENT: Pupils Equal, Pupils Reactive, EOMI, Mucous Membr. Moist/[place] Neck: Supple, Trachea Midline, No JVD, No Thyromegaly, +2 Carotid Pulse wo Bruit. No: Lymphadenopathy Lungs: Clear to Auscultation, Normal Respiratory Effort, Decreased Breath Sounds, Crackles. No: Rales, Rhonchi, Rub, Stridor, Wheezing Cardiovascular: Regular Rate, Regular Rhythm. No: Murmurs, Gallops, Rubs GI/Abdominal Exam: Normal Bowel Sounds, Soft, Non-Tender. No: Distended, Guarding, Rigid, Rebound Back Exam: Normal Inspection, Full Range of Motion. No: CVA Tenderness (L), CVA Tenderness (R), Paraspinal Tenderness, Vertebral Tenderness Extremities: Normal Inspection, Normal Range of Motion, Non-Tender, No Pedal Edema, Normal Capillary Refill Peripheral Pulses: 2+: Radial (L), Radial (R), Dorsalis Pedis (L), Dorsalis Pedis (R) Skin: Warm, Dry, Intact Neurological: No New Focal Deficit Psy/Mental Status: Normal Affect, Normal Mood Sepsis Event Note - Evaluation Sepsis Screening Result: No Definite Risk - Problem List & Annotations (1) Acute hypoxemic respiratory failure due to COVID-19 SNOMED Code(s): 086391483 Code(s): U07.1 - COVID-19; J96.01 - ACUTE RESPIRATORY FAILURE WITH HYPOXIA Status: Acute Current Visit: Yes (2) Asthma SNOMED Code(s): 940078698 Code(s): J45.909 - UNSPECIFIED ASTHMA, UNCOMPLICATED Status: Acute Current Visit: Yes (3) Mitral valve prolapse SNOMED Code(s): 549694832 Code(s): I34.1 - NONRHEUMATIC MITRAL (VALVE) PROLAPSE Status: Acute Current Visit: Yes (4) COVID-19 SNOMED Code(s): 568384048 Code(s): U07.1 - COVID-19 Status: Acute Current Visit: Yes (5) Hypertension SNOMED Code(s): 41870307 Code(s): I10 - ESSENTIAL (PRIMARY) HYPERTENSION Status: Acute Current Visit: No (6) Hyponatremia SNOMED Code(s): 59375142 Code(s): E87.1 - HYPO-OSMOLALITY AND HYPONATREMIA Status: Acute Current Visit: Yes (7) Hypomagnesemia SNOMED Code(s): 505875213 Code(s): E83.42 - HYPOMAGNESEMIA Status: Acute Current Visit: Yes (8) Hypoalbuminemia SNOMED Code(s): 930323539 Code(s): E88.09 - OTH DISORDERS OF PLASMA-PROTEIN METABOLISM, NEC Status: Acute Current Visit: Yes (9) Intractable nausea and vomiting SNOMED Code(s): 869874140 Code(s): R11.2 - NAUSEA WITH VOMITING, UNSPECIFIED Status: Acute Current Visit: Yes (10) Acute respiratory alkalosis SNOMED Code(s): 60913131 Code(s): E87.3 - ALKALOSIS Status: Acute Current Visit: Yes (11) Metabolic alkalosis SNOMED Code(s): 7032967 Code(s): E87.3 - ALKALOSIS Status: Acute Current Visit: Yes (12) Hypochloremic alkalosis SNOMED Code(s): 06834720 Code(s): E87.3 - ALKALOSIS Status: Acute Current Visit: Yes (13) Lymphopenia associated with COVID-19 SNOMED Code(s): 299397109 Code(s): U07.1 - COVID-19; D72.810 - LYMPHOCYTOPENIA Status: Acute Current Visit: Yes (14) Thrombocytopenia SNOMED Code(s): 009234447 Code(s): D69.6 - THROMBOCYTOPENIA, UNSPECIFIED Status: Acute Current Visit: Yes (15) Chronic constipation SNOMED Code(s): 522058074 Code(s): K59.09 - OTHER CONSTIPATION Status: Acute Current Visit: Yes (16) UTI (urinary tract infection) SNOMED Code(s): 43044852 Code(s): N39.0 - URINARY TRACT INFECTION, SITE NOT SPECIFIED Status: Acute Current Visit: Yes (17) Chronic back pain SNOMED Code(s): 761008661 Code(s): M54.9 - DORSALGIA, UNSPECIFIED; G89.29 - OTHER CHRONIC PAIN Status: Acute Current Visit: Yes (18) Restless leg syndrome SNOMED Code(s): 88516925 Code(s): G25.81 - RESTLESS LEGS SYNDROME Status: Acute Current Visit: Yes - Problem List Review Problem List Initiated/Reviewed/Updated: Yes - Assessment Assessment:: 06/27/20 - Worsening fatigue with malaise and productive cough - Daughter whom she sees regularly was just diagnosed with COVID - History of recurrent pneumonia and asthma - VS on admission : 141/61 (87), 72x', RR 25x', 97.2, 76% on RA - Not on and has never been on O2 at home - Labs on admission: - WBC 10.04 - BMP: Na 127, K 3.6, Cl 91, CO2 32, GFR 60 - DD: 0.49/Ferritin 505/ LDH 338/ ProBNP 3,684/ CRP 6.2 - ABGs: 7.44/44.3/88/29.4/96.5 on 4L NC - Crackles on left base on physical exam and patient in obvious respiratory distress - Worsening hypoxemia + decreased mobility in the past week--> will r/o PE - Has not been able to tolerate PO intake in 5 days - Diagnosed with UTI recently and started on 7 day antibiotic course - Still having symptoms although these are improving - Has been taking ATBs - Asthma controlled, never been intubated and doesn't recall last exacerbation PLAN - Start Remdesivir, to complete 5 days - Start Dexamethasone, to complete 10 days - Start Tocilizumab in the morning - CTA chest - NS @ 125ml/hr x 1 bag - Replace magnesium with 2g IV MgSO4 - Replace 20mEq IV KCl - Repeat UA with culture if needed - Continue home medication once available - Request records from Dr. Antoine' office for urine culture results - Request records from [place] [facility] - Prealbumin level - Vitamin levels Patient will be admitted to the regular medical floor on oxygen supplementation, will be started on Remdesivir and Dexamethasone with repeat labs in AM 06/28/20 Around midnight has to increase NC to 7LPM--> 2hr later to 12LPM-->3AM increased to 15 without change in oxygenation --> placed on hi flow CT negative for PE VS trend - BP 110-148/48-80 - Tmax 100.2 - HR 79-84 - SatO2 > 75% Lab results - Platelets down from 129 to 109 - DD up from 0.68 to 1.03 - Na up from 130 to 133 - K down from 3.6 to 3.2 - Ca down from 8.6 to 7.5 - PO4 down from 2.6 to 2.3 - Mg down from 1..7 to 1.5 - Ferritin up from 323 to 325 - LDH up from 294 to 308 - CRP down from 19.5 to 18 - ABGs overnight : #1- 7.38/33.7/58/19/88---> #2- 7.41/31.8/66/19.9/92.4 PLAN - Continue Remdesivir and Dexamethasone day 2 - Start Tocilizumab today - Start convalescent plasma - Transfer to ICU and place on high flow oxygen - D/C IVF - Replace magnesium, K and PO4 with 4g IV MgSO4, 30mMol of KPO4 and 30mEq of KCl - Restart Macrobid - Continue home inhalers - Dietary consult - Start nutritional supplement 06/29/20 Continues to require high flow oxygen at 40L with 80% FiO2 Receive 2u of convalescent plasma and 2 doses of Actemra Requiring stand by assist to commode Diet with 8oz ensure with breakfast and dinner and high protein Jello with lunch--> eating about 50-85% VS trends - MAP 77-90 - Tmax 98.1 - HR 70-85 - SatO2 > 89% Intake and output - UO 1,795 - 24h balance +402 New lab results - Platelets up from 109 to 124 - DD up from 1.03 to 1.52 - Na up from 133 to 136 - K up from 3.2 to 3.7 - PO4 up from 2.3 to 2.6 - Mg up from 1.5 to 2.5 - Ferritin up from 352 to 376 - LDH up from 308 to 408 - CRP down from 18 to 17.1 - BNP up from 921 to 1,330 - Plan Plan:: Acute hypoxemic respiratory failure due to COVID-19 Metabolic alkalosis Lymphopenia associated with COVID-19 - Continue Remdesivir and Dexamethasone day 3 - Continue high flow O2 - Continue Tessalon Perles and guaifenesin UTI - Restart Macrobid - Repeat UA with culture if needed - Request records from Dr. Antoine' office for urine culture results Asthma - Continue Dulera Mitral valve prolapse - Request records from [place] [facility] Hypertension - Continue acebutolol, losartan and amlodipine - PRN Hydralazine Hypoalbuminemia - Dietary consult - Continue nutritional supplements Chronic back pain - Continue home PRN Oxycodone Chronic constipation - Continue home medication Restless leg syndrome - Continue Ropinirole Intractable nausea and vomiting, resolved Acute respiratory alkalosis, resolved Hypochloremic alkalosis, resolved Hyponatremia/Hypomagnesemia/Hypochloremia/Hypokalemia, resolved PROPHYLAXIS DVT- Lovenox GI- home PPI CODE STATUS: FULL CODE DISPOSITION: Patient will be transferred to the ICU for hi flow oxygen and strict isolation, continue current treatment.
[2020-06-29] MEDS: ACEBUTOLOL 200 MG PO SCH (16:07)
[2020-06-29] MEDS: Famotidine 20 MG Tab PO SCH (20:41)
[2020-06-29] MEDS: REMDESIVIR (EUA) 100 MG in Sodium Chloride 0.9% 100 ML IV SCH (20:42)
[2020-06-29] MEDS: Melatonin 3 MG Tab PO PRN (20:51)
[2020-06-29] MEDS: rOPINIRole 1 MG Tab PO PRN (21:08)
[2020-06-29] MEDS: oxyCODONE 5 MG Tab PO PRN (21:08)
[2020-06-30] MEDS: guaiFENesin 100 MG/5 ML Soln 10 ML UD Cup PO SCH ×4 (01:58→20:41)
[2020-06-30] MEDS: Pantoprazole 40 MG Tab.CR PO SCH (06:33)
[2020-06-30] MEDS: Formoterol/Mometasone 200-5 MCG 8.8 GM Inhaler IH SCH ×3 (07:54→20:28)
[2020-06-30] MEDS: Enoxaparin 40 MG/0.4 ML Syringe SUBCUT SCH (08:37)
[2020-06-30] MEDS: Dexamethasone 10 MG/ML SDV IVPUSH SCH (08:40)
[2020-06-30] MEDS: amLODIPine 2.5 MG Tab PO SCH (08:42)
[2020-06-30] MEDS: Niacin 500 MG Tab.ER PO SCH (08:43)
[2020-06-30] MEDS: Benzonatate 100 MG Cap PO SCH ×3 (08:43→20:42)
[2020-06-30] MEDS: Losartan 100 MG Tab PO SCH (08:43)
[2020-06-30] MEDS: Nitrofurantoin Monohydrate/Macrocrystalline 100 MG Cap PO SCH ×2 (08:44→20:42)
[2020-06-30] MEDS: prednisoLONE Acetate 1% Ophth Susp 5 ML Bottle EYELF SCH ×3 (09:26→20:42)
[2020-06-30] MEDS: ACEBUTOLOL 200 MG PO SCH (09:27)
--- NOTE | 2020-06-30 12:23 | CR ---
Chest: Portable view of the chest is obtained. Comparison: Prior chest x-ray of 06/27/20. Diffuse increasing parenchymal density is seen on both sides of the chest involving upper and lower lungs. Findings have significantly worsened from previous study. Heart size and mediastinum are stable. Bony structures are stable. Impression: 1. Significant interval change from prior study with worsening parenchymal densities on both sides of the chest presumably due to worsening pneumonia. Diagnostic code #5 This report was dictated in MDT
[2020-06-30] MEDS: Ondansetron 4 MG/2 ML SDV IVPUSH PRN (16:03)
--- NOTE | 2020-06-30 16:13 | PCM.PN ---
- General Info Date of Service: 06/30/20 Subjective Update: Feeling OK Shortness of breath is a little better No eating that much Last 06/27 - Patient Data Vitals - Most Recent: Last Vital Signs Temp 97.6 F 06/30/20 16:00 Pulse 66 06/30/20 04:00 Resp 18 06/30/20 16:00 BP 142/70 H 06/30/20 16:00 Pulse Ox 90 L 06/30/20 16:00 Weight - Most Recent: 65.453 kg - Exam General: Alert, Oriented, Cooperative, Moderate Distress HEENT: Pupils Equal, Pupils Reactive, EOMI, Mucous Membr. Moist/[place] Neck: Supple, Trachea Midline, No JVD, No Thyromegaly, +2 Carotid Pulse wo Bruit. No: Lymphadenopathy Lungs: Clear to Auscultation, Normal Respiratory Effort, Decreased Breath Sounds, Crackles ([place]). No: Rales, Rhonchi, Rub, Stridor, Wheezing Cardiovascular: Regular Rate, Regular Rhythm. No: Murmurs, Gallops, Rubs GI/Abdominal Exam: Normal Bowel Sounds, Soft, Non-Tender. No: Distended, Guarding, Rigid, Rebound Back Exam: Normal Inspection. No: CVA Tenderness (L), CVA Tenderness (R), Paraspinal Tenderness, Vertebral Tenderness Extremities: Normal Inspection, Normal Range of Motion, Non-Tender, No Pedal Edema, Normal Capillary Refill Peripheral Pulses: 2+: Radial (L), Radial (R), Dorsalis Pedis (L), Dorsalis Pedis (R) Skin: Warm, Dry, Intact Neurological: No New Focal Deficit Psy/Mental Status: Normal Affect, Normal Mood Sepsis Event Note - Evaluation Sepsis Screening Result: No Definite Risk - Problem List & Annotations (1) Acute hypoxemic respiratory failure due to COVID-19 SNOMED Code(s): 871577991 Code(s): U07.1 - COVID-19; J96.01 - ACUTE RESPIRATORY FAILURE WITH HYPOXIA Status: Acute Current Visit: Yes (2) Asthma SNOMED Code(s): 408948896 Code(s): J45.909 - UNSPECIFIED ASTHMA, UNCOMPLICATED Status: Acute Current Visit: Yes (3) Mitral valve prolapse SNOMED Code(s): 280702767 Code(s): I34.1 - NONRHEUMATIC MITRAL (VALVE) PROLAPSE Status: Acute Current Visit: Yes (4) COVID-19 SNOMED Code(s): 628565434 Code(s): U07.1 - COVID-19 Status: Acute Current Visit: Yes (5) Hypertension SNOMED Code(s): 99418774 Code(s): I10 - ESSENTIAL (PRIMARY) HYPERTENSION Status: Acute Current Visit: No (6) Hyponatremia SNOMED Code(s): 46041464 Code(s): E87.1 - HYPO-OSMOLALITY AND HYPONATREMIA Status: Acute Current Visit: Yes (7) Hypomagnesemia SNOMED Code(s): 814197986 Code(s): E83.42 - HYPOMAGNESEMIA Status: Acute Current Visit: Yes (8) Hypoalbuminemia SNOMED Code(s): 135020977 Code(s): E88.09 - OTH DISORDERS OF PLASMA-PROTEIN METABOLISM, NEC Status: Acute Current Visit: Yes (9) Intractable nausea and vomiting SNOMED Code(s): 848442717 Code(s): R11.2 - NAUSEA WITH VOMITING, UNSPECIFIED Status: Acute Current Visit: Yes (10) Acute respiratory alkalosis SNOMED Code(s): 28359559 Code(s): E87.3 - ALKALOSIS Status: Acute Current Visit: Yes (11) Metabolic alkalosis SNOMED Code(s): 1421942 Code(s): E87.3 - ALKALOSIS Status: Acute Current Visit: Yes (12) Hypochloremic alkalosis SNOMED Code(s): 01120743 Code(s): E87.3 - ALKALOSIS Status: Acute Current Visit: Yes (13) Lymphopenia associated with COVID-19 SNOMED Code(s): 603094267 Code(s): U07.1 - COVID-19; D72.810 - LYMPHOCYTOPENIA Status: Acute Current Visit: Yes (14) Thrombocytopenia SNOMED Code(s): 574456180 Code(s): D69.6 - THROMBOCYTOPENIA, UNSPECIFIED Status: Acute Current Visit: Yes (15) Chronic constipation SNOMED Code(s): 184965325 Code(s): K59.09 - OTHER CONSTIPATION Status: Acute Current Visit: Yes (16) UTI (urinary tract infection) SNOMED Code(s): 72956790 Code(s): N39.0 - URINARY TRACT INFECTION, SITE NOT SPECIFIED Status: Acute Current Visit: Yes (17) Chronic back pain SNOMED Code(s): 934748729 Code(s): M54.9 - DORSALGIA, UNSPECIFIED; G89.29 - OTHER CHRONIC PAIN Status: Acute Current Visit: Yes (18) Restless leg syndrome SNOMED Code(s): 43953597 Code(s): G25.81 - RESTLESS LEGS SYNDROME Status: Acute Current Visit: Yes (19) Hypophosphatemia SNOMED Code(s): 1132224 Code(s): E83.39 - OTHER DISORDERS OF PHOSPHORUS METABOLISM Status: Acute Current Visit: Yes - Problem List Review Problem List Initiated/Reviewed/Updated: Yes - Assessment Assessment:: 06/27/20 - Worsening fatigue with malaise and productive cough - Daughter whom she sees regularly was just diagnosed with COVID - History of recurrent pneumonia and asthma - VS on admission : 141/61 (87), 72x', RR 25x', 97.2, 76% on RA - Not on and has never been on O2 at home - Labs on admission: - WBC 10.04 - BMP: Na 127, K 3.6, Cl 91, CO2 32, GFR 60 - DD: 0.49/Ferritin 505/ LDH 338/ ProBNP 3,684/ CRP 6.2 - ABGs: 7.44/44.3/88/29.4/96.5 on 4L NC - Crackles on left base on physical exam and patient in obvious respiratory dist ress - Worsening hypoxemia + decreased mobility in the past week--> will r/o PE - Has not been able to tolerate PO intake in 5 days - Diagnosed with UTI recently and started on 7 day antibiotic course - Still having symptoms although these are improving - Has been taking ATBs - Asthma controlled, never been intubated and doesn't recall last exacerbation PLAN - Start Remdesivir, to complete 5 days - Start Dexamethasone, to complete 10 days - Start Tocilizumab in the morning - CTA chest - NS @ 125ml/hr x 1 bag - Replace magnesium with 2g IV MgSO4 - Replace 20mEq IV KCl - Repeat UA with culture if needed - Continue home medication once available - Request records from Dr. Antoine' office for urine culture results - Request records from [place] [facility] - Prealbumin level - Vitamin levels Patient will be admitted to the regular medical floor on oxygen supplementation, will be started on Remdesivir and Dexamethasone with repeat labs in AM 06/28/20 Around midnight has to increase NC to 7LPM--> 2hr later to 12LPM-->3AM increased to 15 without change in oxygenation --> placed on hi flow CT negative for PE VS trend - BP 110-148/48-80 - Tmax 100.2 - HR 79-84 - SatO2 > 75% Lab results - Platelets down from 129 to 109 - DD up from 0.68 to 1.03 - Na up from 130 to 133 - K down from 3.6 to 3.2 - Ca down from 8.6 to 7.5 - PO4 down from 2.6 to 2.3 - Mg down from 1..7 to 1.5 - Ferritin up from 323 to 325 - LDH up from 294 to 308 - CRP down from 19.5 to 18 - ABGs overnight : #1- 7.38/33.7/58/19/88---> #2- 7.41/31.8/66/19.9/92.4 PLAN - Continue Remdesivir and Dexamethasone day 2 - Start Tocilizumab today - Start convalescent plasma - Transfer to ICU and place on high flow oxygen - D/C IVF - Replace magnesium, K and PO4 with 4g IV MgSO4, 30mMol of KPO4 and 30mEq of KCl - Restart Macrobid - Continue home inhalers - Dietary consult - Start nutritional supplement 06/29/20 Continues to require high flow oxygen at 40L with 80% FiO2 Receive 2u of convalescent plasma and 2 doses of Actemra Requiring stand by assist to commode Diet with 8oz ensure with breakfast and dinner and high protein Jello with lunch--> eating about 50-85% VS trends - MAP 77-90 - Tmax 98.1 - HR 70-85 - SatO2 > 89% Intake and output - UO 1,795 - 24h balance +402 New lab results - Platelets up from 109 to 124 - DD up from 1.03 to 1.52 - Na up from 133 to 136 - K up from 3.2 to 3.7 - PO4 up from 2.3 to 2.6 - Mg up from 1.5 to 2.5 - Ferritin up from 352 to 376 - LDH up from 308 to 408 - CRP down from 18 to 17.1 - BNP up from 921 to 1,330 PLAN - Continue Remdesivir and Dexamethasone day 3 - Change dexamethasone to PO - Continue high flow O2 - Continue Tessalon Perles and guaifenesin - Restart Macrobid - Repeat UA with culture if needed - Request records from Dr. Antoine' office for urine culture results - Continue Dulera - Continue acebutolol, losartan and amlodipine - PRN Hydralazine - Dietary consult - Continue nutritional supplements - Continue Ropinirole 06/30/20 VS trends - BP 128-133/69-91 - Tmax 97.7 - HR 72-82 - SatO2 > 86% Intake and output - UO 2,055 - 24h balance -735 New lab results - Na down from 136 to 135 - K up from 3.7 to 4 - PO4 down from 2.6 to 2.4 - Mg down from 2.5 to 2 - Ferritin down from 376 to 371 - LDH up from 408 to 501 - CK up from 193 to 408 - CRP down from 17.1 to 8.1 - BNP up from 1330 to 1521 - Procalcitonin negative x 2 - Plan Plan:: Acute hypoxemic respiratory failure due to COVID-19 Metabolic alkalosis Lymphopenia associated with COVID-19 - Continue Remdesivir day 4 and Dexamethasone day 3 - Transition dexamethasone to PO - Continue high flow O2 - Continue Tessalon Perles and guaifenesin - Repeat COVID labs in AM UTI - Continue Macrobid, last dose Asthma - Continue Dulera Mitral valve prolapse - Request records from [place] [facility] Hypertension - Continue acebutolol, losartan and amlodipine - PRN Hydralazine Hypoalbuminemia - Dietary follow up - Continue nutritional supplements Chronic back pain - Continue home PRN Oxycodone Chronic constipation - Scheduled Senna BID Restless leg syndrome - Continue Ropinirole Intractable nausea and vomiting, resolved Acute respiratory alkalosis, resolved Hypochloremic alkalosis, resolved Hyponatremia/Hypomagnesemia/Hypochloremia/Hypokalemia, resolved PROPHYLAXIS DVT- Lovenox GI- home PPI CODE STATUS: FULL CODE DISPOSITION: Patient will remain the ICU for hi flow oxygen and strict isolation, continue current treatment.
[2020-06-30] MEDS: REMDESIVIR (EUA) 100 MG in Sodium Chloride 0.9% 100 ML IV SCH (20:41)
[2020-06-30] MEDS: rOPINIRole 1 MG Tab PO PRN (20:42)
[2020-06-30] MEDS: Famotidine 20 MG Tab PO SCH (20:42)
[2020-06-30] MEDS: Melatonin 3 MG Tab PO PRN (20:42)
[2020-06-30] MEDS: oxyCODONE 5 MG Tab PO PRN (20:44)
[2020-07-01] MEDS: Pantoprazole 40 MG Tab.CR PO SCH (06:09)
[2020-07-01] MEDS: Niacin 500 MG Tab.ER PO SCH (08:12)
[2020-07-01] MEDS: Enoxaparin 40 MG/0.4 ML Syringe SUBCUT SCH (08:12)
[2020-07-01] MEDS: guaiFENesin 100 MG/5 ML Soln 10 ML UD Cup PO SCH ×3 (08:12→20:37)
[2020-07-01] MEDS: Losartan 100 MG Tab PO SCH (08:13)
[2020-07-01] MEDS: Benzonatate 100 MG Cap PO SCH ×3 (08:13→20:37)
[2020-07-01] MEDS: Dexamethasone 4 MG Tab PO SCH (08:14)
[2020-07-01] MEDS: amLODIPine 2.5 MG Tab PO SCH (08:15)
[2020-07-01] MEDS: Formoterol/Mometasone 200-5 MCG 8.8 GM Inhaler IH SCH ×2 (08:28→20:23)
[2020-07-01] MEDS: ACEBUTOLOL 200 MG PO SCH (09:03)
[2020-07-01] MEDS: Sennosides 8.6 MG Tab PO SCH (09:03)
[2020-07-01] MEDS: prednisoLONE Acetate 1% Ophth Susp 5 ML Bottle EYELF SCH ×3 (09:03→20:36)
[2020-07-01] MEDS: Ascorbic Acid 500 MG Tab PO SCH ×3 (09:03→20:37)
--- NOTE | 2020-07-01 10:05 | PCM.PN ---
- General Info Date of Service: 07/01/20 Subjective Update: Not eating much Slept OK Shortness of breath is the same - Patient Data Vitals - Most Recent: Last Vital Signs Temp 97.3 F 07/01/20 08:00 Pulse 66 06/30/20 04:00 Resp 20 07/01/20 08:00 BP 160/70 H 07/01/20 08:15 Pulse Ox 92 L 07/01/20 08:28 Weight - Most Recent: 65.317 kg - Exam General: Alert, Oriented, Cooperative, Mild Distress, Moderate Distress HEENT: Pupils Equal, Pupils Reactive, EOMI, Mucous Membr. Moist/[place] Neck: Supple, Trachea Midline, No JVD, No Thyromegaly, +2 Carotid Pulse wo Bruit. No: Lymphadenopathy Lungs: Clear to Auscultation, Normal Respiratory Effort, Crackles (interval improvement). No: Rales, Rhonchi, Rub, Stridor, Wheezing Cardiovascular: Regular Rate, Regular Rhythm. No: Murmurs, Gallops, Rubs GI/Abdominal Exam: Normal Bowel Sounds, Soft, Non-Tender. No: Distended, Guarding, Rigid, Rebound Back Exam: Normal Inspection. No: CVA Tenderness (L), CVA Tenderness (R), Paraspinal Tenderness, Vertebral Tenderness Extremities: Normal Inspection, Normal Range of Motion, Non-Tender, No Pedal Edema, Slow Capillary Refill Peripheral Pulses: 2+: Radial (L), Radial (R), Dorsalis Pedis (L), Dorsalis Pedis (R) Skin: Dry, Intact, Cool Neurological: No New Focal Deficit Sepsis Event Note - Evaluation Sepsis Screening Result: No Definite Risk - Problem List & Annotations (1) Acute hypoxemic respiratory failure due to COVID-19 SNOMED Code(s): 432319440 Code(s): U07.1 - COVID-19; J96.01 - ACUTE RESPIRATORY FAILURE WITH HYPOXIA Status: Acute Current Visit: Yes (2) Asthma SNOMED Code(s): 657216096 Code(s): J45.909 - UNSPECIFIED ASTHMA, UNCOMPLICATED Status: Acute Current Visit: Yes (3) Mitral valve prolapse SNOMED Code(s): 020133276 Code(s): I34.1 - NONRHEUMATIC MITRAL (VALVE) PROLAPSE Status: Acute Current Visit: Yes (4) COVID-19 SNOMED Code(s): 370464711 Code(s): U07.1 - COVID-19 Status: Acute Current Visit: Yes (5) Hypertension SNOMED Code(s): 79414867 Code(s): I10 - ESSENTIAL (PRIMARY) HYPERTENSION Status: Acute Current Visit: No (6) Hyponatremia SNOMED Code(s): 15079355 Code(s): E87.1 - HYPO-OSMOLALITY AND HYPONATREMIA Status: Acute Current Visit: Yes (7) Hypomagnesemia SNOMED Code(s): 031208225 Code(s): E83.42 - HYPOMAGNESEMIA Status: Acute Current Visit: Yes (8) Hypoalbuminemia SNOMED Code(s): 699887857 Code(s): E88.09 - OTH DISORDERS OF PLASMA-PROTEIN METABOLISM, NEC Status: Acute Current Visit: Yes (9) Intractable nausea and vomiting SNOMED Code(s): 209740410 Code(s): R11.2 - NAUSEA WITH VOMITING, UNSPECIFIED Status: Acute Current Visit: Yes (10) Acute respiratory alkalosis SNOMED Code(s): 95486899 Code(s): E87.3 - ALKALOSIS Status: Acute Current Visit: Yes (11) Metabolic alkalosis SNOMED Code(s): 7712656 Code(s): E87.3 - ALKALOSIS Status: Acute Current Visit: Yes (12) Hypochloremic alkalosis SNOMED Code(s): 31821059 Code(s): E87.3 - ALKALOSIS Status: Acute Current Visit: Yes (13) Lymphopenia associated with COVID-19 SNOMED Code(s): 434088344 Code(s): U07.1 - COVID-19; D72.810 - LYMPHOCYTOPENIA Status: Acute Current Visit: Yes (14) Thrombocytopenia SNOMED Code(s): 104782924 Code(s): D69.6 - THROMBOCYTOPENIA, UNSPECIFIED Status: Acute Current Visit: Yes (15) Chronic constipation SNOMED Code(s): 796133164 Code(s): K59.09 - OTHER CONSTIPATION Status: Acute Current Visit: Yes (16) UTI (urinary tract infection) SNOMED Code(s): 77460186 Code(s): N39.0 - URINARY TRACT INFECTION, SITE NOT SPECIFIED Status: Acute Current Visit: Yes (17) Chronic back pain SNOMED Code(s): 286049173 Code(s): M54.9 - DORSALGIA, UNSPECIFIED; G89.29 - OTHER CHRONIC PAIN Status: Acute Current Visit: Yes (18) Restless leg syndrome SNOMED Code(s): 82831484 Code(s): G25.81 - RESTLESS LEGS SYNDROME Status: Acute Current Visit: Yes - Problem List Review Problem List Initiated/Reviewed/Updated: Yes - Assessment Assessment:: 06/27/20 - Worsening fatigue with malaise and productive cough - Daughter whom she sees regularly was just diagnosed with COVID - History of recurrent pneumonia and asthma - VS on admission : 141/61 (87), 72x', RR 25x', 97.2, 76% on RA - Not on and has never been on O2 at home - Labs on admission: - WBC 10.04 - BMP: Na 127, K 3.6, Cl 91, CO2 32, GFR 60 - DD: 0.49/Ferritin 505/ LDH 338/ ProBNP 3,684/ CRP 6.2 - ABGs: 7.44/44.3/88/29.4/96.5 on 4L NC - Crackles on left base on physical exam and patient in obvious respiratory distress - Worsening hypoxemia + decreased mobility in the past week--> will r/o PE - Has not been able to tolerate PO intake in 5 days - Diagnosed with UTI recently and started on 7 day antibiotic course - Still having symptoms although these are improving - Has been taking ATBs - Asthma controlled, never been intubated and doesn't recall last exacerbation PLAN - Start Remdesivir, to complete 5 days - Start Dexamethasone, to complete 10 days - Start Tocilizumab in the morning - CTA chest - NS @ 125ml/hr x 1 bag - Replace magnesium with 2g IV MgSO4 - Replace 20mEq IV KCl - Repeat UA with culture if needed - Continue home medication once available - Request records from Dr. Antoine' office for urine culture results - Request records from [place] [facility] - Prealbumin level - Vitamin levels Patient will be admitted to the regular medical floor on oxygen supplementation, will be started on Remdesivir and Dexamethasone with repeat labs in AM 06/28/20 Around midnight has to increase NC to 7LPM--> 2hr later to 12LPM-->3AM increased to 15 without change in oxygenation --> placed on hi flow CT negative for PE VS trend - BP 110-148/48-80 - Tmax 100.2 - HR 79-84 - SatO2 > 75% Lab results - Platelets down from 129 to 109 - DD up from 0.68 to 1.03 - Na up from 130 to 133 - K down from 3.6 to 3.2 - Ca down from 8.6 to 7.5 - PO4 down from 2.6 to 2.3 - Mg down from 1..7 to 1.5 - Ferritin up from 323 to 325 - LDH up from 294 to 308 - CRP down from 19.5 to 18 - ABGs overnight : #1- 7.38/33.7/58/19/88---> #2- 7.41/31.8/66/19.9/92.4 PLAN - Continue Remdesivir and Dexamethasone day 2 - Start Tocilizumab today - Start convalescent plasma - Transfer to ICU and place on high flow oxygen - D/C IVF - Replace magnesium, K and PO4 with 4g IV MgSO4, 30mMol of KPO4 and 30mEq of KCl - Restart Macrobid - Continue home inhalers - Dietary consult - Start nutritional supplement 06/29/20 Continues to require high flow oxygen at 40L with 80% FiO2 Receive 2u of convalescent plasma and 2 doses of Actemra Requiring stand by assist to commode Diet with 8oz ensure with breakfast and dinner and high protein Jello with lunch--> eating about 50-85% VS trends - MAP 77-90 - Tmax 98.1 - HR 70-85 - SatO2 > 89% Intake and output - UO 1,795 - 24h balance +402 New lab results - Platelets up from 109 to 124 - DD up from 1.03 to 1.52 - Na up from 133 to 136 - K up from 3.2 to 3.7 - PO4 up from 2.3 to 2.6 - Mg up from 1.5 to 2.5 - Ferritin up from 352 to 376 - LDH up from 308 to 408 - CRP down from 18 to 17.1 - BNP up from 921 to 1,330 PLAN - Continue Remdesivir and Dexamethasone day 3 - Change dexamethasone to PO - Continue high flow O2 - Continue Tessalon Perles and guaifenesin - Restart Macrobid - Repeat UA with culture if needed - Request records from Dr. Antoine' office for urine culture results - Continue Dulera - Continue acebutolol, losartan and amlodipine - PRN Hydralazine - Dietary consult - Continue nutritional supplements - Continue Ropinirole 06/30/20 VS trends - BP 128-133/69-91 - Tmax 97.7 - HR 72-82 - SatO2 > 86% Intake and output - UO 2,055 - 24h balance -735 New lab results - Na down from 136 to 135 - K up from 3.7 to 4 - PO4 down from 2.6 to 2.4 - Mg down from 2.5 to 2 - Ferritin down from 376 to 371 - LDH up from 408 to 501 - CK up from 193 to 408 - CRP down from 17.1 to 8.1 - BNP up from 1330 to 1521 - Procalcitonin negative x 2 PLAN - Continue Remdesivir day 4 and Dexamethasone day 3 - Transition dexamethasone to PO - Continue high flow O2 - Continue Leona Chahal and sonu - Repeat COVID labs in AM - Continue Macrobid, last dose - Continue Dulera - Continue acebutolol, losartan and amlodipine - PRN Hydralazine - Continue nutritional supplements - Continue home PRN Oxycodone - Scheduled Senna BID - Continue Ropinirole Patient will remain the ICU for hi flow oxygen and strict isolation, continue current treatment. 07/01/20 Patient's oxygen requirements in past 24 h - 80% at 8AM changed to 75% changed to 60% at 4PM Eating about 50-80% of meals On 8oz ensure with breakfast and dinner, and high protein jello with lunch Physical exam significantly improved crackles on L base VS trends - MAP 85-108 - Tmax 97.7 - HR 66-86 - SatO2 > 93% Intake and output - UO 1,780 - 24h balance -460 - Balance since admission +1,465 New lab results - Plt up from 155 to 190 - DD up from 1.74 yo 2.06 - Na down from 135 to 134 - PO4 stable at 2.4 - Magnesium down from 2 to 1.8 - Ferritin down from 371 to 358 - LDH down from - Plan Plan:: Acute hypoxemic respiratory failure due to COVID-19 Metabolic alkalosis Lymphopenia associated with COVID-19 - Continue Remdesivir day 5 and Dexamethasone day 4 - New Actemra dose today - 1u convalescent plasma today - Continue high flow O2 - Continue Tessalon Perles and guaifenesin - Repeat COVID labs in AM - Start Vitamin C for 10 days - Up to chair as much as possible Asthma - Continue Dulera Mitral valve prolapse - Request records from [place] [facility] Hypertension - Continue acebutolol, losartan and amlodipine - PRN Hydralazine Hypoalbuminemia - Dietary follow up - Continue nutritional supplements Chronic back pain - Continue home PRN Oxycodone Chronic constipation - Scheduled Senna BID - Restart home Colace Restless leg syndrome - Continue Ropinirole Intractable nausea and vomiting, resolved Acute respiratory alkalosis, resolved Hypochloremic alkalosis, resolved Hyponatremia/Hypomagnesemia/Hypochloremia/Hypokalemia, resolved UTI, completed treatment PROPHYLAXIS DVT- Lovenox GI- home PPI CODE STATUS: FULL CODE DISPOSITION: Patient will remain the ICU for hi flow oxygen and strict isolation, continue current treatment. Will require hospital stay greater than 96 hours due to requirement of prolonged treatment regimen and need for O2 supplementation for COVID infection.
[2020-07-01] MEDS ORDERED: Tocilizumab 400 MG in Sodium Chloride 0.9% 80 ML IV ONE (12:00)
[2020-07-01] MEDS: Docusate Sodium 100 MG Cap PO SCH ×2 (12:39→20:37)
[2020-07-01] MEDS ORDERED: Magnesium Sulfate/Water 2 GM in Premix Bag 1 BAG IV SCH (14:30)
[2020-07-01] MEDS: Potassium Chloride 10 MEQ in Premix Bag 1 BAG IV SCH ×3 (14:43→17:59)
[2020-07-01] MEDS ORDERED: Lactated Ringers 500 ML IV SCH (17:00)
[2020-07-01] MEDS ORDERED: Sodium Chloride 0.9% 250 ML ONE (18:36)
[2020-07-01] MEDS: Famotidine 20 MG Tab PO SCH (20:37)
[2020-07-01] MEDS: rOPINIRole 1 MG Tab PO PRN (20:37)
[2020-07-01] MEDS: oxyCODONE 5 MG Tab PO PRN (20:42)
[2020-07-01] MEDS: REMDESIVIR (EUA) 100 MG in Sodium Chloride 0.9% 100 ML IV SCH (20:48)
[2020-07-01] MEDS: Melatonin 3 MG Tab PO PRN (21:45)
[2020-07-02] MEDS: Ascorbic Acid 500 MG Tab PO SCH ×4 (02:26→20:27)
[2020-07-02] MEDS: Pantoprazole 40 MG Tab.CR PO SCH (06:04)
[2020-07-02] MEDS: guaiFENesin 100 MG/5 ML Soln 10 ML UD Cup PO SCH ×3 (08:46→20:30)
[2020-07-02] MEDS: Niacin 500 MG Tab.ER PO SCH (08:46)
[2020-07-02] MEDS: Losartan 100 MG Tab PO SCH (08:46)
[2020-07-02] MEDS: Benzonatate 100 MG Cap PO SCH ×3 (08:46→20:28)
[2020-07-02] MEDS: amLODIPine 2.5 MG Tab PO SCH (08:47)
[2020-07-02] MEDS: Dexamethasone 4 MG Tab PO SCH (08:47)
[2020-07-02] MEDS: Docusate Sodium 100 MG Cap PO SCH (08:47)
[2020-07-02] MEDS: Formoterol/Mometasone 200-5 MCG 8.8 GM Inhaler IH SCH ×2 (08:47→21:11)
[2020-07-02] MEDS: Enoxaparin 40 MG/0.4 ML Syringe SUBCUT SCH (08:47)
[2020-07-02] MEDS: ACEBUTOLOL 200 MG PO SCH (08:50)
[2020-07-02] MEDS: Sennosides 8.6 MG Tab PO SCH (08:50)
[2020-07-02] MEDS: prednisoLONE Acetate 1% Ophth Susp 5 ML Bottle EYELF SCH ×3 (08:50→20:42)
[2020-07-02] MEDS: Lactulose Soln 10 GM/15 ML 30 ML UD Cup PO SCH ×2 (10:20→19:42)
--- NOTE | 2020-07-02 10:51 | PCM.PN ---
- General Info Date of Service: 07/02/20 Subjective Update: Feeling better Slept OK Tolerating diet - Patient Data Vitals - Most Recent: Last Vital Signs Temp 97.2 F 07/02/20 08:55 Pulse 93 07/01/20 20:47 Resp 24 H 07/02/20 08:55 BP 116/59 L 07/02/20 08:55 Pulse Ox 88 L 07/02/20 08:55 Weight - Most Recent: 65.771 kg - Exam General: Alert, Oriented, Cooperative, Mild Distress, Moderate Distress HEENT: Pupils Equal, Pupils Reactive, EOMI, Mucous Membr. Moist/[place] Neck: Supple, Trachea Midline, No JVD. No: Lymphadenopathy Lungs: Clear to Auscultation, Normal Respiratory Effort, Crackles. No: Decreased Breath Sounds, Rales, Rhonchi, Rub, Stridor, Wheezing Cardiovascular: Regular Rate, Regular Rhythm. No: Murmurs, Gallops, Rubs GI/Abdominal Exam: Normal Bowel Sounds, Soft, Non-Tender. No: Distended, Guarding, Rigid, Rebound Extremities: Normal Inspection, Normal Range of Motion, Non-Tender, No Pedal Edema, Slow Capillary Refill Peripheral Pulses: 2+: Radial (L), Radial (R), Dorsalis Pedis (L), Dorsalis Pedis (R) Skin: Warm, Dry, Intact Neurological: No New Focal Deficit Psy/Mental Status: Normal Affect, Normal Mood Sepsis Event Note - Evaluation Sepsis Screening Result: No Definite Risk - Problem List & Annotations (1) Acute hypoxemic respiratory failure due to COVID-19 SNOMED Code(s): 186764315 Code(s): U07.1 - COVID-19; J96.01 - ACUTE RESPIRATORY FAILURE WITH HYPOXIA Status: Acute Current Visit: Yes (2) Asthma SNOMED Code(s): 930551044 Code(s): J45.909 - UNSPECIFIED ASTHMA, UNCOMPLICATED Status: Acute Current Visit: Yes (3) Mitral valve prolapse SNOMED Code(s): 731894574 Code(s): I34.1 - NONRHEUMATIC MITRAL (VALVE) PROLAPSE Status: Acute Current Visit: Yes (4) COVID-19 SNOMED Code(s): 480151341 Code(s): U07.1 - COVID-19 Status: Acute Current Visit: Yes (5) Hypertension SNOMED Code(s): 53196446 Code(s): I10 - ESSENTIAL (PRIMARY) HYPERTENSION Status: Acute Current Visit: No (6) Hyponatremia SNOMED Code(s): 34366974 Code(s): E87.1 - HYPO-OSMOLALITY AND HYPONATREMIA Status: Acute Current Visit: Yes (7) Hypomagnesemia SNOMED Code(s): 678813477 Code(s): E83.42 - HYPOMAGNESEMIA Status: Acute Current Visit: Yes (8) Hypoalbuminemia SNOMED Code(s): 731798510 Code(s): E88.09 - OTH DISORDERS OF PLASMA-PROTEIN METABOLISM, NEC Status: Acute Current Visit: Yes (9) Intractable nausea and vomiting SNOMED Code(s): 105606709 Code(s): R11.2 - NAUSEA WITH VOMITING, UNSPECIFIED Status: Acute Current Visit: Yes (10) Acute respiratory alkalosis SNOMED Code(s): 16957491 Code(s): E87.3 - ALKALOSIS Status: Acute Current Visit: Yes (11) Metabolic alkalosis SNOMED Code(s): 5433800 Code(s): E87.3 - ALKALOSIS Status: Acute Current Visit: Yes (12) Hypochloremic alkalosis SNOMED Code(s): 85318417 Code(s): E87.3 - ALKALOSIS Status: Acute Current Visit: Yes (13) Lymphopenia associated with COVID-19 SNOMED Code(s): 477297454 Code(s): U07.1 - COVID-19; D72.810 - LYMPHOCYTOPENIA Status: Acute Current Visit: Yes (14) Thrombocytopenia SNOMED Code(s): 482428708 Code(s): D69.6 - THROMBOCYTOPENIA, UNSPECIFIED Status: Acute Current Visit: Yes (15) Chronic constipation SNOMED Code(s): 219254999 Code(s): K59.09 - OTHER CONSTIPATION Status: Acute Current Visit: Yes (16) UTI (urinary tract infection) SNOMED Code(s): 72506705 Code(s): N39.0 - URINARY TRACT INFECTION, SITE NOT SPECIFIED Status: Acute Current Visit: Yes (17) Chronic back pain SNOMED Code(s): 226245108 Code(s): M54.9 - DORSALGIA, UNSPECIFIED; G89.29 - OTHER CHRONIC PAIN Status: Acute Current Visit: Yes (18) Restless leg syndrome SNOMED Code(s): 74816312 Code(s): G25.81 - RESTLESS LEGS SYNDROME Status: Acute Current Visit: Yes (19) Hypophosphatemia SNOMED Code(s): 0262108 Code(s): E83.39 - OTHER DISORDERS OF PHOSPHORUS METABOLISM Status: Acute Current Visit: Yes - Problem List Review Problem List Initiated/Reviewed/Updated: Yes - Assessment Assessment:: 06/27/20 - Worsening fatigue with malaise and productive cough - Daughter whom she sees regularly was just diagnosed with COVID - History of recurrent pneumonia and asthma - VS on admission : 141/61 (87), 72x', RR 25x', 97.2, 76% on RA - Not on and has never been on O2 at home - Labs on admission: - WBC 10.04 - BMP: Na 127, K 3.6, Cl 91, CO2 32, GFR 60 - DD: 0.49/Ferritin 505/ LDH 338/ ProBNP 3,684/ CRP 6.2 - ABGs: 7.44/44.3/88/29.4/96.5 on 4L NC - Crackles on left base on physical exam and patient in obvious respiratory distress - Worsening hypoxemia + decreased mobility in the past week--> will r/o PE - Has not been able to tolerate PO intake in 5 days - Diagnosed with UTI recently and started on 7 day antibiotic course - Still having symptoms although these are improving - Has been taking ATBs - Asthma controlled, never been intubated and doesn't recall last exacerbation PLAN - Start Remdesivir, to complete 5 days - Start Dexamethasone, to complete 10 days - Start Tocilizumab in the morning - CTA chest - NS @ 125ml/hr x 1 bag - Replace magnesium with 2g IV MgSO4 - Replace 20mEq IV KCl - Repeat UA with culture if needed - Continue home medication once available - Request records from Dr. Antoine' office for urine culture results - Request records from [place] [facility] - Prealbumin level - Vitamin levels Patient will be admitted to the regular medical floor on oxygen supplementation, will be started on Remdesivir and Dexamethasone with repeat labs in AM 06/28/20 Around midnight has to increase NC to 7LPM--> 2hr later to 12LPM-->3AM increased to 15 without change in oxygenation --> placed on hi flow CT negative for PE VS trend - BP 110-148/48-80 - Tmax 100.2 - HR 79-84 - SatO2 > 75% Lab results - Platelets down from 129 to 109 - DD up from 0.68 to 1.03 - Na up from 130 to 133 - K down from 3.6 to 3.2 - Ca down from 8.6 to 7.5 - PO4 down from 2.6 to 2.3 - Mg down from 1..7 to 1.5 - Ferritin up from 323 to 325 - LDH up from 294 to 308 - CRP down from 19.5 to 18 - ABGs overnight : #1- 7.38/33.7/58/19/88---> #2- 7.41/31.8/66/19.9/92.4 PLAN - Continue Remdesivir and Dexamethasone day 2 - Start Tocilizumab today - Start convalescent plasma - Transfer to ICU and place on high flow oxygen - D/C IVF - Replace magnesium, K and PO4 with 4g IV MgSO4, 30mMol of KPO4 and 30mEq of KCl - Restart Macrobid - Continue home inhalers - Dietary consult - Start nutritional supplement 06/29/20 Continues to require high flow oxygen at 40L with 80% FiO2 Receive 2u of convalescent plasma and 2 doses of Actemra Requiring stand by assist to commode Diet with 8oz ensure with breakfast and dinner and high protein Jello with lunch--> eating about 50-85% VS trends - MAP 77-90 - Tmax 98.1 - HR 70-85 - SatO2 > 89% Intake and output - UO 1,795 - 24h balance +402 New lab results - Platelets up from 109 to 124 - DD up from 1.03 to 1.52 - Na up from 133 to 136 - K up from 3.2 to 3.7 - PO4 up from 2.3 to 2.6 - Mg up from 1.5 to 2.5 - Ferritin up from 352 to 376 - LDH up from 308 to 408 - CRP down from 18 to 17.1 - BNP up from 921 to 1,330 PLAN - Continue Remdesivir and Dexamethasone day 3 - Change dexamethasone to PO - Continue high flow O2 - Continue Tessalon [place] and guaifenesin - Restart Macrobid - Repeat UA with culture if needed - Request records from Dr. Antoine' office for urine culture results - Continue Dulera - Continue acebutolol, losartan and amlodipine - PRN Hydralazine - Dietary consult - Continue nutritional supplements - Continue Ropinirole 06/30/20 VS trends - BP 128-133/69-91 - Tmax 97.7 - HR 72-82 - SatO2 > 86% Intake and output - UO 2,055 - 24h balance -735 New lab results - Na down from 136 to 135 - K up from 3.7 to 4 - PO4 down from 2.6 to 2.4 - Mg down from 2.5 to 2 - Ferritin down from 376 to 371 - LDH up from 408 to 501 - CK up from 193 to 408 - CRP down from 17.1 to 8.1 - BNP up from 1330 to 1521 - Procalcitonin negative x 2 PLAN - Continue Remdesivir day 4 and Dexamethasone day 3 - Transition dexamethasone to PO - Continue high flow O2 - Continue Tessalon Perles and guaifenesin - Repeat COVID labs in AM - Continue Macrobid, last dose - Continue Dulera - Continue acebutolol, losartan and amlodipine - PRN Hydralazine - Continue nutritional supplements - Continue home PRN Oxycodone - Scheduled Senna BID - Continue Ropinirole Patient will remain the ICU for hi flow oxygen and strict isolation, continue current treatment. 07/01/20 Patient's oxygen requirements in past 24 h - 80% at 8AM changed to 75% changed to 60% at 4PM Eating about 50-80% of meals On 8oz ensure with breakfast and dinner, and high protein jello with lunch Physical exam significantly improved crackles on L base VS trends - MAP 85-108 - Tmax 97.7 - HR 66-86 - SatO2 > 93% Intake and output - UO 1,780 - 24h balance -460 - Balance since admission +1,465 New lab results - Plt up from 155 to 190 - DD up from 1.74 yo 2.06 - Na down from 135 to 134 - PO4 stable at 2.4 - Magnesium down from 2 to 1.8 - Ferritin down from 371 to 358 - LDH down from PLAN - Continue Remdesivir day 5 and Dexamethasone day 4 - New Actemra dose today - 1u convalescent plasma today - Continue high flow O2 - Continue Tessalon Perles and guaifenesin - Repeat COVID labs in AM - Start Vitamin C for 10 days - Up to chair as much as possible - Continue Dulera - Continue acebutolol, losartan and amlodipine - PRN Hydralazine - Continue nutritional supplements - Continue home PRN Oxycodone - Scheduled Senna BID - Restart home Colace - Continue Ropinirole 07/01/20 Completed Remdesivir 5 day course yesterday Has tolerated weaning of FiO2 well Last BM 06/27 VS trends - [id number]/72-91 - Tmax 98 - HR 62-85 - SatO2 > 85% Intake and output - UO 2,120 - 24h balance +360 - Balance since admission +1,825 New lab results - Na down from 134 to 133 - PO4 down from 2.4 to 2.3 - Mag up from 1.8 to 1.9 - Ferritin down from 358 to 313 - LDH down from 488 to 419 - CK down from 195 to 97 - CRP down from 4.9 to 3.1 - BNP down from 1002 to 639 - Plan Plan:: Acute hypoxemic respiratory failure due to COVID-19 Metabolic alkalosis Lymphopenia associated with COVID-19 - Continue Dexamethasone day 5 - Continue high flow O2 taper - Continue Tessalon Perles and guaifenesin - Repeat COVID labs in AM - Continue Vitamin C for 10 days, day 2 - Up to chair as much as possible Asthma - Continue Dulera Mitral valve prolapse - Request records from [place] [facility] Hypertension - Continue acebutolol, losartan and amlodipine - PRN Hydralazine Hypoalbuminemia - Dietary follow up - Continue nutritional supplements Chronic back pain - Continue home PRN Oxycodone Chronic constipation - Scheduled Colace - Lactulose q6h until BM then discontinue - Restart home Colace Restless leg syndrome - Continue Ropinirole Intractable nausea and vomiting, resolved Acute respiratory alkalosis, resolved Hypochloremic alkalosis, resolved Hyponatremia/Hypomagnesemia/Hypochloremia/Hypokalemia, resolved UTI, completed treatment PROPHYLAXIS DVT- Lovenox GI- home PPI CODE STATUS: FULL CODE DISPOSITION: Patient will remain the ICU for hi flow oxygen and strict isolation, continue current treatment. Will require hospital stay greater than 96 hours due to requirement of prolonged treatment regimen and need for O2 supplementation for COVID infection.
[2020-07-02] MEDS: Acetaminophen 325 MG Tab PO PRN (17:54)
[2020-07-02] MEDS: Famotidine 20 MG Tab PO SCH (20:29)
[2020-07-02] MEDS: oxyCODONE 5 MG Tab PO PRN (21:22)
[2020-07-02] MEDS: rOPINIRole 1 MG Tab PO PRN (21:22)
[2020-07-02] MEDS: Melatonin 3 MG Tab PO PRN (22:07)
[2020-07-03] MEDS: Ascorbic Acid 500 MG Tab PO SCH ×4 (02:29→20:33)
[2020-07-03] MEDS: Pantoprazole 40 MG Tab.CR PO SCH (06:17)
--- NOTE | 2020-07-03 07:11 | PCM.PN ---
- General Info Date of Service: 07/03/20 Subjective Update: Feeling OK Slept on and off throughout the night No appetite but eating better - Patient Data Vitals - Most Recent: Last Vital Signs Temp 97.6 F 07/03/20 04:00 Pulse 93 07/01/20 20:47 Resp 20 07/03/20 04:00 BP 105/82 07/03/20 04:00 Pulse Ox 92 L 07/03/20 04:00 Weight - Most Recent: 67.268 kg - Exam General: Alert, Oriented, Cooperative, Mild Distress, Moderate Distress HEENT: Pupils Equal, Pupils Reactive, EOMI, Mucous Membr. Moist/[place] Neck: Supple, Trachea Midline, No JVD Lungs: Decreased Breath Sounds, Wheezing (end expiratory). No: Crackles, Rales, Rhonchi, Rub, Stridor Cardiovascular: Regular Rate, Regular Rhythm. No: Murmurs, Gallops, Rubs GI/Abdominal Exam: Normal Bowel Sounds, Soft, Non-Tender. No: Distended, Guarding, Rigid, Rebound Back Exam: Normal Inspection, Full Range of Motion. No: Paraspinal Tenderness, Vertebral Tenderness Extremities: Normal Inspection, Normal Range of Motion, Non-Tender, No Pedal Edema, Slow Capillary Refill Peripheral Pulses: 2+: Radial (L), Radial (R), Dorsalis Pedis (L), Dorsalis Pedis (R) Skin: Dry, Cool Neurological: No New Focal Deficit Psy/Mental Status: Normal Affect, Normal Mood Sepsis Event Note - Evaluation Sepsis Screening Result: No Definite Risk - Problem List & Annotations (1) Acute hypoxemic respiratory failure due to COVID-19 SNOMED Code(s): 028536619 Code(s): U07.1 - COVID-19; J96.01 - ACUTE RESPIRATORY FAILURE WITH HYPOXIA Status: Acute Current Visit: Yes (2) Asthma SNOMED Code(s): 268177009 Code(s): J45.909 - UNSPECIFIED ASTHMA, UNCOMPLICATED Status: Acute Current Visit: Yes (3) Mitral valve prolapse SNOMED Code(s): 099509895 Code(s): I34.1 - NONRHEUMATIC MITRAL (VALVE) PROLAPSE Status: Acute Current Visit: Yes (4) COVID-19 SNOMED Code(s): 032545904 Code(s): U07.1 - COVID-19 Status: Acute Current Visit: Yes (5) Hypertension SNOMED Code(s): 29857219 Code(s): I10 - ESSENTIAL (PRIMARY) HYPERTENSION Status: Acute Current Visit: No (6) Hyponatremia SNOMED Code(s): 39938507 Code(s): E87.1 - HYPO-OSMOLALITY AND HYPONATREMIA Status: Acute Current Visit: Yes (7) Hypomagnesemia SNOMED Code(s): 795149108 Code(s): E83.42 - HYPOMAGNESEMIA Status: Acute Current Visit: Yes (8) Hypoalbuminemia SNOMED Code(s): 283135430 Code(s): E88.09 - OTH DISORDERS OF PLASMA-PROTEIN METABOLISM, NEC Status: Acute Current Visit: Yes (9) Intractable nausea and vomiting SNOMED Code(s): 878823371 Code(s): R11.2 - NAUSEA WITH VOMITING, UNSPECIFIED Status: Acute Current Visit: Yes (10) Acute respiratory alkalosis SNOMED Code(s): 50787610 Code(s): E87.3 - ALKALOSIS Status: Acute Current Visit: Yes (11) Metabolic alkalosis SNOMED Code(s): 3635698 Code(s): E87.3 - ALKALOSIS Status: Acute Current Visit: Yes (12) Hypochloremic alkalosis SNOMED Code(s): 46739334 Code(s): E87.3 - ALKALOSIS Status: Acute Current Visit: Yes (13) Lymphopenia associated with COVID-19 SNOMED Code(s): 781821227 Code(s): U07.1 - COVID-19; D72.810 - LYMPHOCYTOPENIA Status: Acute Current Visit: Yes (14) Thrombocytopenia SNOMED Code(s): 511795554 Code(s): D69.6 - THROMBOCYTOPENIA, UNSPECIFIED Status: Acute Current Visit: Yes (15) Chronic constipation SNOMED Code(s): 414928685 Code(s): K59.09 - OTHER CONSTIPATION Status: Acute Current Visit: Yes (16) UTI (urinary tract infection) SNOMED Code(s): 01612736 Code(s): N39.0 - URINARY TRACT INFECTION, SITE NOT SPECIFIED Status: Acute Current Visit: Yes (17) Chronic back pain SNOMED Code(s): 272227853 Code(s): M54.9 - DORSALGIA, UNSPECIFIED; G89.29 - OTHER CHRONIC PAIN Status: Acute Current Visit: Yes (18) Restless leg syndrome SNOMED Code(s): 18673927 Code(s): G25.81 - RESTLESS LEGS SYNDROME Status: Acute Current Visit: Yes (19) Hypophosphatemia SNOMED Code(s): 6077611 Code(s): E83.39 - OTHER DISORDERS OF PHOSPHORUS METABOLISM Status: Acute Current Visit: Yes - Problem List Review Problem List Initiated/Reviewed/Updated: Yes - Assessment Assessment:: 06/27/20 - Worsening fatigue with malaise and productive cough - Daughter whom she sees regularly was just diagnosed with COVID - History of recurrent pneumonia and asthma - VS on admission : 141/61 (87), 72x', RR 25x', 97.2, 76% on RA - Not on and has never been on O2 at home - Labs on admission: - WBC 10.04 - BMP: Na 127, K 3.6, Cl 91, CO2 32, GFR 60 - DD: 0.49/Ferritin 505/ LDH 338/ ProBNP 3,684/ CRP 6.2 - ABGs: 7.44/44.3/88/29.4/96.5 on 4L NC - Crackles on left base on physical exam and patient in obvious respiratory distress - Worsening hypoxemia + decreased mobility in the past week--> will r/o PE - Has not been able to tolerate PO intake in 5 days - Diagnosed with UTI recently and started on 7 day antibiotic course - Still having symptoms although these are improving - Has been taking ATBs - Asthma controlled, never been intubated and doesn't recall last exacerbation PLAN - Start Remdesivir, to complete 5 days - Start Dexamethasone, to complete 10 days - Start Tocilizumab in the morning - CTA chest - NS @ 125ml/hr x 1 bag - Replace magnesium with 2g IV MgSO4 - Replace 20mEq IV KCl - Repeat UA with culture if needed - Continue home medication once available - Request records from Dr. Antoine' office for urine culture results - Request records from [place] [facility] - Prealbumin level - Vitamin levels Patient will be admitted to the regular medical floor on oxygen supplementation, will be started on Remdesivir and Dexamethasone with repeat labs in AM 06/28/20 Around midnight has to increase NC to 7LPM--> 2hr later to 12LPM-->3AM increased to 15 without change in oxygenation --> placed on hi flow CT negative for PE VS trend - BP 110-148/48-80 - Tmax 100.2 - HR 79-84 - SatO2 > 75% Lab results - Platelets down from 129 to 109 - DD up from 0.68 to 1.03 - Na up from 130 to 133 - K down from 3.6 to 3.2 - Ca down from 8.6 to 7.5 - PO4 down from 2.6 to 2.3 - Mg down from 1..7 to 1.5 - Ferritin up from 323 to 325 - LDH up from 294 to 308 - CRP down from 19.5 to 18 - ABGs overnight : #1- 7.38/33.7/58/19/88---> #2- 7.41/31.8/66/19.9/92.4 PLAN - Continue Remdesivir and Dexamethasone day 2 - Start Tocilizumab today - Start convalescent plasma - Transfer to ICU and place on high flow oxygen - D/C IVF - Replace magnesium, K and PO4 with 4g IV MgSO4, 30mMol of KPO4 and 30mEq of KCl - Restart Macrobid - Continue home inhalers - Dietary consult - Start nutritional supplement 06/29/20 Continues to require high flow oxygen at 40L with 80% FiO2 Receive 2u of convalescent plasma and 2 doses of Actemra Requiring stand by assist to commode Diet with 8oz ensure with breakfast and dinner and high protein Jello with lunch--> eating about 50-85% VS trends - MAP 77-90 - Tmax 98.1 - HR 70-85 - SatO2 > 89% Intake and output - UO 1,795 - 24h balance +402 New lab results - Platelets up from 109 to 124 - DD up from 1.03 to 1.52 - Na up from 133 to 136 - K up from 3.2 to 3.7 - PO4 up from 2.3 to 2.6 - Mg up from 1.5 to 2.5 - Ferritin up from 352 to 376 - LDH up from 308 to 408 - CRP down from 18 to 17.1 - BNP up from 921 to 1,330 PLAN - Continue Remdesivir and Dexamethasone day 3 - Change dexamethasone to PO - Continue high flow O2 - Continue Tessalon Perles and guaifenesin - Restart Macrobid - Repeat UA with culture if needed - Request records from Dr. Antoine' office for urine culture results - Continue Dulera - Continue acebutolol, losartan and amlodipine - PRN Hydralazine - Dietary consult - Continue nutritional supplements - Continue Ropinirole 06/30/20 VS trends - BP 128-133/69-91 - Tmax 97.7 - HR 72-82 - SatO2 > 86% Intake and output - UO 2,055 - 24h balance -735 New lab results - Na down from 136 to 135 - K up from 3.7 to 4 - PO4 down from 2.6 to 2.4 - Mg down from 2.5 to 2 - Ferritin down from 376 to 371 - LDH up from 408 to 501 - CK up from 193 to 408 - CRP down from 17.1 to 8.1 - BNP up from 1330 to 1521 - Procalcitonin negative x 2 PLAN - Continue Remdesivir day 4 and Dexamethasone day 3 - Transition dexamethasone to PO - Continue high flow O2 - Continue Tessalon Perles and guaifenesin - Repeat COVID labs in AM - Continue Macrobid, last dose - Continue Dulera - Continue acebutolol, losartan and amlodipine - PRN Hydralazine - Continue nutritional supplements - Continue home PRN Oxycodone - Scheduled Senna BID - Continue Ropinirole Patient will remain the ICU for hi flow oxygen and strict isolation, continue current treatment. 07/01/20 Patient's oxygen requirements in past 24 h - 80% at 8AM changed to 75% changed to 60% at 4PM Eating about 50-80% of meals On 8oz ensure with breakfast and dinner, and high protein jello with lunch Physical exam significantly improved crackles on L base VS trends - MAP 85-108 - Tmax 97.7 - HR 66-86 - SatO2 > 93% Intake and output - UO 1,780 - 24h balance -460 - Balance since admission +1,465 New lab results - Plt up from 155 to 190 - DD up from 1.74 yo 2.06 - Na down from 135 to 134 - PO4 stable at 2.4 - Magnesium down from 2 to 1.8 - Ferritin down from 371 to 358 - LDH down from PLAN - Continue Remdesivir day 5 and Dexamethasone day 4 - New Actemra dose today - 1u convalescent plasma today - Continue high flow O2 - Continue Tessalon Perles and guaifenesin - Repeat COVID labs in AM - Start Vitamin C for 10 days - Up to chair as much as possible - Continue Dulera - Continue acebutolol, losartan and amlodipine - PRN Hydralazine - Continue nutritional supplements - Continue home PRN Oxycodone - Scheduled Senna BID - Restart home Colace - Continue Ropinirole 07/02/20 Completed Remdesivir 5 day course yesterday Has tolerated weaning of FiO2 well Last BM 06/27 VS trends - UE593-780/72-91 - Tmax 98 - HR 62-85 - SatO2 > 85% Intake and output - UO 2,120 - 24h balance +360 - Balance since admission +1,825 New lab results - Na down from 134 to 133 - PO4 down from 2.4 to 2.3 - Mag up from 1.8 to 1.9 - Ferritin down from 358 to 313 - LDH down from 488 to 419 - CK down from 195 to 97 - CRP down from 4.9 to 3.1 - BNP down from 1002 to 639 PLAN - Continue Dexamethasone day 5 - Continue high flow O2 taper - Continue Tessalon Perles and guaifenesin - Repeat COVID labs in AM - Continue Vitamin C for 10 days, day 2 - Up to chair as much as possible - Continue Dulera - Request records from [place] [facility] - Continue acebutolol, losartan and amlodipine - PRN Hydralazine - Dietary follow up - Continue nutritional supplements - Continue home PRN Oxycodone - Scheduled Colace - Lactulose q6h until BM then discontinue - Restart home Colace - Continue Ropinirole 07/03/20 O2 requirements have not increase, remains on high flow 35L at 55% Still having end expiratory wheezing but no crackles VS trends - BP 105-146/59-89 - Tmax 97.5 - HR 63-91 - SatO2 > 85% Intake and output - UO 2,650 - 24h balance +897 - Balance since admission +2,837 New lab results - WBC up from 9.83-11.36, 0 bands - D-dimer up from 2-2.25 - Sodium up from 133 234 - GFR stable at greater than 60 - Phosphorus up from 2.3-2.4 - Magnesium down from 1.9-1.8 - Ferritin down from 313-277 - LDH down from 491-437 - CRP down from 3.1-2 - Plan Plan:: Acute hypoxemic respiratory failure due to COVID-19 Metabolic alkalosis Lymphopenia associated with COVID-19 - Continue Dexamethasone day 6 - Continue high flow O2 taper - Continue Tessalon Perles and guaifenesin - Repeat COVID labs in AM - Continue Vitamin C for day 01/05 - Up to chair as much as possible Asthma - Continue Dulera - PRN Albuterol Mitral valve prolapse - Request records from [place] [facility] Hypertension - Continue acebutolol, losartan and amlodipine - PRN Hydralazine Hypoalbuminemia - Dietary follow up - Continue nutritional supplements Chronic back pain - Continue home PRN Oxycodone Chronic constipation - Scheduled Colace Restless leg syndrome - Continue Ropinirole Intractable nausea and vomiting, resolved Acute respiratory alkalosis, resolved Hypochloremic alkalosis, resolved Hyponatremia/Hypomagnesemia/Hypochloremia/Hypokalemia, resolved UTI, completed treatment PROPHYLAXIS DVT- Lovenox GI- home PPI CODE STATUS: FULL CODE DISPOSITION: Patient will remain the ICU for hi flow oxygen and strict isolation, continue current treatment. Will require hospital stay greater than 96 hours due to requirement of prolonged treatment regimen and need for O2 supplementation for COVID infection.
[2020-07-03] MEDS: Losartan 100 MG Tab PO SCH (08:28)
[2020-07-03] MEDS: Niacin 500 MG Tab.ER PO SCH (08:28)
[2020-07-03] MEDS: amLODIPine 2.5 MG Tab PO SCH (08:28)
[2020-07-03] MEDS: Dexamethasone 4 MG Tab PO SCH (08:28)
[2020-07-03] MEDS: guaiFENesin 100 MG/5 ML Soln 10 ML UD Cup PO SCH ×3 (08:29→20:33)
[2020-07-03] MEDS: Enoxaparin 40 MG/0.4 ML Syringe SUBCUT SCH (08:29)
[2020-07-03] MEDS: Benzonatate 100 MG Cap PO SCH ×3 (08:29→20:36)
[2020-07-03] MEDS: prednisoLONE Acetate 1% Ophth Susp 5 ML Bottle EYELF SCH ×3 (08:30→20:37)
[2020-07-03] MEDS: Formoterol/Mometasone 200-5 MCG 8.8 GM Inhaler IH SCH ×3 (08:47→20:59)
[2020-07-03] MEDS: ACEBUTOLOL 200 MG PO SCH (08:55)
[2020-07-03] MEDS ORDERED: Diltiazem 50 MG/10 ML SDV IVPUSH ONE ×3 (14:08→15:31)
[2020-07-03] MEDS ORDERED: Rivaroxaban 15 MG Tab PO SCH (14:30)
[2020-07-03] MEDS ORDERED: Diltiazem 50 MG/10 ML SDV IV ONE (15:48)
[2020-07-03] MEDS: Rivaroxaban 15 MG Tab PO SCH (15:49)
[2020-07-03] MEDS ORDERED: Diltiazem 100 MG in Sodium Chloride 0.9% 100 ML IV SCH (16:00)
[2020-07-03] MEDS: Famotidine 20 MG Tab PO SCH (20:33)
[2020-07-03] MEDS: oxyCODONE 5 MG Tab PO PRN (20:33)
[2020-07-03] MEDS: rOPINIRole 1 MG Tab PO PRN (20:33)
[2020-07-03] MEDS: Melatonin 3 MG Tab PO PRN (20:33)
[2020-07-04] MEDS: Ascorbic Acid 500 MG Tab PO SCH ×4 (03:17→20:23)
[2020-07-04] MEDS: Acetaminophen 325 MG Tab PO PRN (05:44)
[2020-07-04] MEDS: Pantoprazole 40 MG Tab.CR PO SCH ×2 (05:45→06:02)
[2020-07-04] MEDS: Formoterol/Mometasone 200-5 MCG 8.8 GM Inhaler IH SCH ×2 (08:08→21:24)
[2020-07-04] MEDS: guaiFENesin 100 MG/5 ML Soln 10 ML UD Cup PO SCH ×3 (08:19→20:24)
[2020-07-04] MEDS: Rivaroxaban 15 MG Tab PO SCH (08:20)
[2020-07-04] MEDS: amLODIPine 2.5 MG Tab PO SCH (08:20)
[2020-07-04] MEDS: Niacin 500 MG Tab.ER PO SCH (08:20)
[2020-07-04] MEDS: Losartan 100 MG Tab PO SCH (08:20)
[2020-07-04] MEDS: ACEBUTOLOL 200 MG PO SCH (08:21)
[2020-07-04] MEDS: Dexamethasone 4 MG Tab PO SCH (08:21)
[2020-07-04] MEDS: prednisoLONE Acetate 1% Ophth Susp 5 ML Bottle EYELF SCH ×3 (08:21→20:25)
[2020-07-04] MEDS: Benzonatate 100 MG Cap PO SCH ×3 (08:21→20:24)
--- NOTE | 2020-07-04 13:06 | PCM.PN ---
- General Info Date of Service: 07/04/20 Admission Dx/Problem (Free Text): Respiratory failure secondary to COVID 19 Subjective Update: Patient is doing much better today. She has been weaned to room air but continues on high flow nasal cannula. Continue to wean the high flow nasal cannula. Patient states that she does feel much better, but continues to be fatigued. Functional Status: Reports: Pain Controlled - Review of Systems General: Reports: Fatigue HEENT: Reports: No Symptoms Pulmonary: Reports: Shortness of Breath Cardiovascular: Reports: No Symptoms Gastrointestinal: Reports: No Symptoms Musculoskeletal: Reports: No Symptoms Neurological: Reports: No Symptoms Psychiatric: Reports: No Symptoms - Patient Data Vitals - Most Recent: Last Vital Signs Temp 97.4 F 07/04/20 08:17 Pulse 93 07/01/20 20:47 Resp 20 07/04/20 12:06 BP 128/98 H 07/04/20 12:06 Pulse Ox 91 L 07/04/20 12:14 Weight - Most Recent: 67.041 kg I&O - Last 24 Hours: Intake & Output 07/03/20 07/04/20 07/04/20 22:59 06:59 14:59 Intake Total 1530 200 600 Output Total 1025 1250 350 Balance 505 -1050 250 Lab Results Last 24 Hours: Laboratory Results - last 24 hr 07/04/20 07/04/20 07/04/20 Range/Units 04:15 04:28 04:28 WBC 11.15 H (3.98-10.04) K/mm3 RBC 4.11 (3.98-5.22) M/mm3 Hgb 13.1 (11.2-15.7) gm/dl Hct 36.5 (34.1-44.9) % MCV 88.8 (79.4-94.8) fl MCH 31.9 (25.6-32.2) pg MCHC 35.9 H (32.2-35.5) g/dl RDW Std Deviation 44.2 (36.4-46.3) fL Plt Count 234 (182-369) K/mm3 MPV 9.0 L (9.4-12.3) fl Neutrophils % (Manual) 85 H (40-60) % Band Neutrophils % 0 (0-10) % Lymphocytes % (Manual) 9 L (20-40) % Atypical Lymphs % 0 % Monocytes % (Manual) 6 (2-10) % Eosinophils % (Manual) 0 L (0.7-5.8) % Basophils % (Manual) 0 L (0.1-1.2) Platelet Estimate Adequate RBC Morph Comment Normal PT 14.0 H (9.7-11.7) SECONDS INR 1.32 D-Dimer, Quantitative 2.39 H (0.19-0.50) mg/L Puncture Site Rt brachial ABG pH 7.47 H (7.35-7.45) ABG pCO2 35.6 (35.0-45.0) mmHg ABG pO2 62.0 L (80.0-100.0) mmHg ABG HCO3 25.8 (22.0-26.0) meq/L ABG O2 Saturation 90.9 L (96.0-97.0) % ABG Base Excess 2.8 H (-2-2.0) A-a Gradient 286 mmHg O2 Delivery Device High flow nc Oxygen Flow Rate 35.0 FiO2 55.00 (21.00-100.00) % Sodium (136-145) mEq/L Potassium (3.5-5.1) mEq/L Chloride (98-107) mEq/L Carbon Dioxide (21-32) mEq/L Anion Gap (5-15) BUN (7-18) mg/dL Creatinine (0.55-1.02) mg/dL Est Cr Clr Drug Dosing mL/min Estimated GFR (MDRD) (>60) mL/min BUN/Creatinine Ratio (14-18) Glucose (83-115) mg/dL Calcium (8.5-10.1) mg/dL Phosphorus (2.6-4.7) mg/dL Magnesium (1.8-2.4) mg/dl Ferritin (8-252) ng/ml Lactate Dehydrogenase (81-234) U/L Creatine Kinase (26-192) U/L Troponin I (0.00-0.056) ng/mL C-Reactive Protein (<1.0) mg/dL NT-Pro-B Natriuret Pep (0-450) pg/mL 07/04/20 07/04/20 07/04/20 Range/Units 04:28 04:28 04:28 WBC (3.98-10.04) K/mm3 RBC (3.98-5.22) M/mm3 Hgb (11.2-15.7) gm/dl Hct (34.1-44.9) % MCV (79.4-94.8) fl MCH (25.6-32.2) pg MCHC (32.2-35.5) g/dl RDW Std Deviation (36.4-46.3) fL Plt Count (182-369) K/mm3 MPV (9.4-12.3) fl Neutrophils % (Manual) (40-60) % Band Neutrophils % (0-10) % Lymphocytes % (Manual) (20-40) % Atypical Lymphs % % Monocytes % (Manual) (2-10) % Eosinophils % (Manual) (0.7-5.8) % Basophils % (Manual) (0.1-1.2) Platelet Estimate RBC Morph Comment PT (9.7-11.7) SECONDS INR D-Dimer, Quantitative (0.19-0.50) mg/L Puncture Site ABG pH (7.35-7.45) ABG pCO2 (35.0-45.0) mmHg ABG pO2 (80.0-100.0) mmHg ABG HCO3 (22.0-26.0) meq/L ABG O2 Saturation (96.0-97.0) % ABG Base Excess (-2-2.0) A-a Gradient mmHg O2 Delivery Device Oxygen Flow Rate FiO2 (21.00-100.00) % Sodium 132 L (136-145) mEq/L Potassium 4.1 (3.5-5.1) mEq/L Chloride 101 (98-107) mEq/L Carbon Dioxide 27 (21-32) mEq/L Anion Gap 8.1 (5-15) BUN 28 H (7-18) mg/dL Creatinine 0.8 (0.55-1.02) mg/dL Est Cr Clr Drug Dosing 50.75 mL/min Estimated GFR (MDRD) > 60 (>60) mL/min BUN/Creatinine Ratio 35.0 H (14-18) Glucose 127 H (83-115) mg/dL Calcium 8.0 L (8.5-10.1) mg/dL Phosphorus 3.0 (2.6-4.7) mg/dL Magnesium 1.9 (1.8-2.4) mg/dl Ferritin 269 H (8-252) ng/ml Lactate Dehydrogenase 441 H (81-234) U/L Creatine Kinase 39 (26-192) U/L Troponin I < 0.017 (0.00-0.056) ng/mL C-Reactive Protein 1.4 H* (<1.0) mg/dL NT-Pro-B Natriuret Pep 1030 H (0-450) pg/mL Jose Results Last 24 Hours: Microbiology 06/27/20 22:05 Gram Stain - Final Sputum - Induced Sputum Culture - Preliminary Gram Negative Coccobacilli 06/27/20 15:15 Aerobic Blood Culture - Preliminary Blood - Venous - Lab Draw NO GROWTH AFTER 6 DAYS Anaerobic Blood Culture - Final 06/27/20 15:15 Aerobic Blood Culture - Preliminary Blood - Venous NO GROWTH AFTER 6 DAYS Anaerobic Blood Culture - Final Med Orders - Current: Current Medications Acetaminophen (Tylenol) 650 mg PO Q4H PRN PRN Reason: Pain (Mild 1-3)/fever Last Admin: 07/04/20 05:44 Dose: 650 mg Documented by: Amlodipine Besylate (Norvasc) 2.5 mg PO DAILY [facility] Last Admin: 07/04/20 08:20 Dose: 2.5 mg Documented by: Ascorbic Acid (Vitamin C) 1,500 mg PO Q6H [facility] Last Admin: 07/04/20 08:19 Dose: 1,500 mg Documented by: Benzonatate (Tessalon Perles) 100 mg PO TID [facility] Last Admin: 07/04/20 08:21 Dose: 100 mg Documented by: Dexamethasone (Dexamethasone) 6 mg PO DAILY [facility] Stop: 07/07/20 09:01 Last Admin: 07/04/20 08:21 Dose: 6 mg Documented by: Famotidine (Pepcid) 20 mg PO BEDTIME [facility] Last Admin: 07/03/20 20:33 Dose: 20 mg Documented by: Guaifenesin (Robitussin) 400 mg PO TID [facility] Last Admin: 07/04/20 08:19 Dose: 400 mg Documented by: Lactated Ringer's (Ringers, Lactated) 500 mls @ 100 mls/hr IV ASDIRECTED [facility] Last Admin: 07/01/20 18:09 Dose: 100 mls/hr Documented by: Diltiazem HCl 100 mg/ Sodium (Chloride) 100 mls @ 5 mls/hr IV TITRATE [facility]; Protocol Losartan Potassium (Cozaar) 100 mg PO DAILY [facility] Last Admin: 07/04/20 08:20 Dose: 100 mg Documented by: Melatonin (Melatonin) 9 mg PO BEDTIME PRN PRN Reason: Insomnia Last Admin: 07/03/20 20:33 Dose: 9 mg Documented by: Mometasone Furoate/Formoterol Fumar (Dulera 200-5 Mcg) 2 puff IH BID [facility] Last Admin: 07/04/20 08:08 Dose: 2 puff Documented by: Niacin (Niaspan) 250 mg PO DAILY [facility] Last Admin: 07/04/20 08:20 Dose: 250 mg Documented by: Ondansetron HCl (Zofran) 4 mg IVPUSH Q8H PRN PRN Reason: Nausea Last Admin: 06/30/20 16:03 Dose: 4 mg Documented by: Oxycodone HCl (Oxycodone) 5 mg PO DAILY PRN PRN Reason: Pain Last Admin: 07/03/20 20:33 Dose: 5 mg Documented by: Pantoprazole Sodium (Protonix) 40 mg PO DAILY@0700 [facility] Last Admin: 07/04/20 06:02 Dose: Not Given Documented by: Acebutolol 200 Mg 0 each PO DAILY [facility] Last Admin: 07/04/20 08:21 Dose: 1 each Documented by: Prednisolone Acetate (Pred Forte 1% Ophth Susp) 0 ml EYELF TID [facility] Last Admin: 07/04/20 08:21 Dose: 1 drop Documented by: Rivaroxaban (Xarelto) 20 mg PO DAILY [facility] Last Admin: 07/04/20 08:20 Dose: 20 mg Documented by: Ropinirole HCl (Requip) 1 - 1.5 mg PO BEDTIME PRN PRN Reason: Restless leg syndrome Last Admin: 07/03/20 20:33 Dose: 1 mg Documented by: Sodium Chloride (Saline Flush) 10 ml FLUSH ONETIME PRN PRN Reason: IV FLUSH Last Admin: 06/27/20 20:15 Dose: 10 ml Documented by: Discontinued Medications Dexamethasone (Dexamethasone) 6 mg IVPUSH DAILY [facility] Last Admin: 06/30/20 08:40 Dose: 6 mg Documented by: Diltiazem HCl (Cardizem) 50 mg IVPUSH ONETIME ONE Stop: 07/03/20 14:09 Last Admin: 07/03/20 14:31 Dose: Not Given Documented by: Diltiazem HCl (Cardizem) 17 mg 0.25 mg/kg (17 mg) IVPUSH NOW ONE Stop: 07/03/20 14:21 Last Admin: 07/03/20 14:25 Dose: 17 mg Documented by: Diltiazem HCl (Cardizem) 24 mg 0.35 mg/kg (24 mg) IVPUSH NOW ONE Stop: 07/03/20 15:32 Last Admin: 07/03/20 15:52 Dose: 24 mg Documented by: Diltiazem HCl (Cardizem) 24 mg 0.35 mg/kg (24 mg) IV NOW ONE Stop: 07/03/20 15:49 Last Admin: 07/03/20 16:39 Dose: Not Given Documented by: Docusate Sodium (Colace) 200 mg PO BID [facility] Last Admin: 07/02/20 08:47 Dose: 200 mg Documented by: Enoxaparin Sodium (Lovenox) 40 mg SUBCUT DAILY [facility] Last Admin: 07/03/20 08:29 Dose: 40 mg Documented by: Guaifenesin (Robitussin) 400 mg PO Q8H [facility] Last Admin: 06/30/20 10:11 Dose: 400 mg Documented by: Sodium Chloride (Normal Saline) 1,000 mls @ 1,000 mls/hr IV .BOLUS [facility] Last Admin: 06/27/20 20:38 Dose: 1,000 mls/hr Documented by: Sodium Chloride (Normal Saline) 1,000 mls @ 125 mls/hr IV ASDIRECTED [facility] Stop: 06/28/20 02:14 Last Admin: 06/28/20 04:17 Dose: 125 mls/hr Documented by: REMDESIVIR (EUA) 200 mg/ (Sodium Chloride) 250 mls @ 250 mls/hr IV ONETIME [facility] Stop: 06/27/20 18:04 Last Admin: 06/28/20 03:07 Dose: Not Given Documented by: REMDESIVIR (EUA) 100 mg/ (Sodium Chloride) 100 mls @ 100 mls/hr IV Q24H [facility] Stop: 07/01/20 21:59 Last Admin: 07/01/20 20:48 Dose: 100 mls/hr Documented by: Sodium Chloride (Normal Saline) 100 mls @ 75 mls/hr IV ASDIRECTED [facility] Stop: 06/28/20 09:50 Last Admin: 06/27/20 20:15 Dose: 75 mls/hr Documented by: REMDESIVIR (EUA) 200 mg/ (Sodium Chloride) 250 mls @ 250 mls/hr IV ONETIME [facility] Stop: 06/27/20 21:02 Last Admin: 06/28/20 16:21 Dose: Not Given Documented by: REMDESIVIR (EUA) 200 mg/ (Sodium Chloride) 250 mls @ 250 mls/hr IV ONETIME [facility] Stop: 06/27/20 20:59 Last Admin: 06/27/20 20:59 Dose: 250 mls/hr Documented by: Tocilizumab 400 mg/ Sodium (Chloride) 100 mls @ 100 mls/hr IV Q12H [facility] Stop: 06/28/20 23:59 Last Admin: 06/28/20 22:00 Dose: 100 mls/hr Documented by: Potassium Phosphate 30 mmole/ (Sodium Chloride) 510 mls @ 102 mls/hr IV ONETIME ONE Stop: 06/28/20 16:59 Last Admin: 06/28/20 11:18 Dose: 102 mls/hr Documented by: Potassium Chloride 10 meq/ (Premix) 100 mls @ 100 mls/hr IV Q1H [facility] Stop: 06/28/20 19:59 Last Admin: 06/28/20 18:58 Dose: 100 mls/hr Documented by: Magnesium Sulfate 4 gm/ Premix 50 mls @ 12.5 mls/hr IV ONETIME ONE Stop: 06/28/20 20:59 Last Admin: 06/28/20 16:49 Dose: 12.5 mls/hr Documented by: Sodium Chloride (Normal Saline) Confirm Administered Dose 100 mls @ as directed .ROUTE .STK-MED ONE Stop: 06/28/20 16:38 Last Admin: 06/28/20 17:34 Dose: Not Given Documented by: Sodium Chloride (Normal Saline) 250 mls @ 10 mls/hr IV ASDIRECTED [facility] Stop: 06/28/20 23:00 Last Admin: 06/28/20 17:46 Dose: 10 mls/hr Documented by: Tocilizumab 400 mg/ Sodium (Chloride) 100 mls @ 100 mls/hr IV ONETIME ONE Stop: 07/01/20 12:59 Last Admin: 07/01/20 12:38 Dose: 100 mls/hr Documented by: Magnesium Sulfate 2 gm/ Premix 50 mls @ 50 mls/hr IV Q1H [facility] Stop: 07/01/20 15:29 Last Admin: 07/01/20 14:43 Dose: 50 mls/hr Documented by: Potassium Chloride 10 meq/ (Premix) 100 mls @ 100 mls/hr IV Q1H [facility] Stop: 07/01/20 18:29 Last Admin: 07/01/20 17:59 Dose: 100 mls/hr Documented by: Sodium Chloride (Normal Saline) Confirm Administered Dose 250 mls @ as directed .ROUTE .STK-MED ONE Stop: 07/01/20 18:37 Last Admin: 07/01/20 20:52 Dose: 50 mls/hr Documented by: Iopamidol (Isovue-370 (76%)) 100 ml IVPUSH ONETIME ONE Stop: 06/27/20 19:16 Last Admin: 06/27/20 20:00 Dose: 100 ml Documented by: Lactulose (Cephulac) 20 gm PO Q6H [facility] Last Admin: 07/02/20 19:42 Dose: Not Given Documented by: Nitrofurantoin Macrocrystals (Macrobid) 100 mg PO BID [facility] Stop: 06/30/20 21:01 Last Admin: 06/30/20 20:42 Dose: 100 mg Documented by: Ondansetron HCl (Zofran) 4 mg IVPUSH ONETIME ONE Stop: 06/27/20 14:18 Last Admin: 06/27/20 14:38 Dose: 4 mg Documented by: Ondansetron HCl (Zofran) 4 mg IVPUSH Q8H [facility] Stop: 06/28/20 02:16 Last Admin: 06/28/20 04:12 Dose: 4 mg Documented by: Acebutolol 200 Mg 200 each PO DAILY [facility] Last Admin: 06/29/20 09:06 Dose: Not Given Documented by: Rivaroxaban (Xarelto) 15 mg PO BID [facility] Last Admin: 07/03/20 15:20 Dose: Not Given Documented by: Senna (Senna) 8.6 mg PO DAILY [facility] Last Admin: 07/02/20 08:50 Dose: 8.6 mg Documented by: Sodium Chloride (Saline Flush) 10 ml FLUSH ASDIRECTED PRN PRN Reason: Keep Vein Open Last Admin: 06/27/20 15:36 Dose: 10 ml Documented by: - Exam Quality Assessment: Supplemental Oxygen (High flow nasal cannula) General: Alert, Oriented Lungs: Normal Respiratory Effort, Wheezing (Mild wheeze) Cardiovascular: Regular Rate, Regular Rhythm GI/Abdominal Exam: Normal Bowel Sounds, Soft, Non-Tender, No Distention, No Abnormal Bruit Extremities: Normal Inspection, Normal Range of Motion, Non-Tender, No Pedal Edema, Normal Capillary Refill Skin: Warm, Dry, Intact Psy/Mental Status: Alert, Normal Affect, Normal Mood Sepsis Event Note - Evaluation Sepsis Screening Result: No Definite Risk - Focused Exam Vital Signs: Vital Signs Temp Resp BP BP Pulse Ox Pulse Ox 07/04/20 12:14 91 L 07/04/20 12:06 20 128/98 H 98 07/04/20 11:21 91 L 07/04/20 10:32 20 97 07/04/20 09:55 125/67 100 07/04/20 09:17 97 07/04/20 08:20 151/92 H 07/04/20 08:17 97.4 F 22 H 151/92 H 93 L 07/04/20 04:00 97.8 F 22 H 143/89 H 93 L - Problem List & Annotations (1) Acute hypoxemic respiratory failure due to COVID-19 SNOMED Code(s): 834251174 Code(s): U07.1 - COVID-19; J96.01 - ACUTE RESPIRATORY FAILURE WITH HYPOXIA Status: Acute Current Visit: Yes (2) Asthma SNOMED Code(s): 062362688 Code(s): J45.909 - UNSPECIFIED ASTHMA, UNCOMPLICATED Status: Acute Current Visit: Yes (3) Chronic back pain SNOMED Code(s): 282864481 Code(s): M54.9 - DORSALGIA, UNSPECIFIED; G89.29 - OTHER CHRONIC PAIN Status: Acute Current Visit: Yes (4) Hypoalbuminemia SNOMED Code(s): 254821213 Code(s): E88.09 - OTH DISORDERS OF PLASMA-PROTEIN METABOLISM, NEC Status: Acute Current Visit: Yes (5) Hyponatremia SNOMED Code(s): 39356091 Code(s): E87.1 - HYPO-OSMOLALITY AND HYPONATREMIA Status: Acute Current Visit: Yes - Problem List Review Problem List Initiated/Reviewed/Updated: Yes - Assessment Assessment:: 06/27/20 - Worsening fatigue with malaise and productive cough - Daughter whom she sees regularly was just diagnosed with COVID - History of recurrent pneumonia and asthma - VS on admission : 141/61 (87), 72x', RR 25x', 97.2, 76% on RA - Not on and has never been on O2 at home - Labs on admission: - WBC 10.04 - BMP: Na 127, K 3.6, Cl 91, CO2 32, GFR 60 - DD: 0.49/Ferritin 505/ LDH 338/ ProBNP 3,684/ CRP 6.2 - ABGs: 7.44/44.3/88/29.4/96.5 on 4L NC - Crackles on left base on physical exam and patient in obvious respiratory distress - Worsening hypoxemia + decreased mobility in the past week--> will r/o PE - Has not been able to tolerate PO intake in 5 days - Diagnosed with UTI recently and started on 7 day antibiotic course - Still having symptoms although these are improving - Has been taking ATBs - Asthma controlled, never been intubated and doesn't recall last exacerbation PLAN - Start Remdesivir, to complete 5 days - Start Dexamethasone, to complete 10 days - Start Tocilizumab in the morning - CTA chest - NS @ 125ml/hr x 1 bag - Replace magnesium with 2g IV MgSO4 - Replace 20mEq IV KCl - Repeat UA with culture if needed - Continue home medication once available - Request records from Dr. Antoine' office for urine culture results - Request records from [facility] - Prealbumin level - Vitamin levels Patient will be admitted to the regular medical floor on oxygen supplementation, will be started on Remdesivir and Dexamethasone with repeat labs in AM 06/28/20 Around midnight has to increase NC to 7LPM--> 2hr later to 12LPM-->3AM increased to 15 without change in oxygenation --> placed on hi flow CT negative for PE VS trend - BP 110-148/48-80 - Tmax 100.2 - HR 79-84 - SatO2 > 75% Lab results - Platelets down from 129 to 109 - DD up from 0.68 to 1.03 - Na up from 130 to 133 - K down from 3.6 to 3.2 - Ca down from 8.6 to 7.5 - PO4 down from 2.6 to 2.3 - Mg down from 1..7 to 1.5 - Ferritin up from 323 to 325 - LDH up from 294 to 308 - CRP down from 19.5 to 18 - ABGs overnight : #1- 7.38/33.7/58/19/88---> #2- 7.41/31.8/66/19.9/92.4 PLAN - Continue Remdesivir and Dexamethasone day 2 - Start Tocilizumab today - Start convalescent plasma - Transfer to ICU and place on high flow oxygen - D/C IVF - Replace magnesium, K and PO4 with 4g IV MgSO4, 30mMol of KPO4 and 30mEq of KCl - Restart Macrobid - Continue home inhalers - Dietary consult - Start nutritional supplement 06/29/20 Continues to require high flow oxygen at 40L with 80% FiO2 Receive 2u of convalescent plasma and 2 doses of Actemra Requiring stand by assist to commode Diet with 8oz ensure with breakfast and dinner and high protein Jello with lunch--> eating about 50-85% VS trends - MAP 77-90 - Tmax 98.1 - HR 70-85 - SatO2 > 89% Intake and output - UO 1,795 - 24h balance +402 New lab results - Platelets up from 109 to 124 - DD up from 1.03 to 1.52 - Na up from 133 to 136 - K up from 3.2 to 3.7 - PO4 up from 2.3 to 2.6 - Mg up from 1.5 to 2.5 - Ferritin up from 352 to 376 - LDH up from 308 to 408 - CRP down from 18 to 17.1 - BNP up from 921 to 1,330 PLAN - Continue Remdesivir and Dexamethasone day 3 - Change dexamethasone to PO - Continue high flow O2 - Continue Tessalon Perles and guaifenesin - Restart Macrobid - Repeat UA with culture if needed - Request records from Dr. Antoine' office for urine culture results - Continue Dulera - Continue acebutolol, losartan and amlodipine - PRN Hydralazine - Dietary consult - Continue nutritional supplements - Continue Ropinirole 9/2/20 VS trends - BP 128-133/69-91 - Tmax 97.7 - HR 72-82 - SatO2 > 86% Intake and output - UO 2,055 - 24h balance -735 New lab results - Na down from 136 to 135 - K up from 3.7 to 4 - PO4 down from 2.6 to 2.4 - Mg down from 2.5 to 2 - Ferritin down from 376 to 371 - LDH up from 408 to 501 - CK up from 193 to 408 - CRP down from 17.1 to 8.1 - BNP up from 1330 to 1521 - Procalcitonin negative x 2 PLAN - Continue Remdesivir day 4 and Dexamethasone day 3 - Transition dexamethasone to PO - Continue high flow O2 - Continue Tessalon Perles and guaifenesin - Repeat COVID labs in AM - Continue Macrobid, last dose - Continue Dulera - Continue acebutolol, losartan and amlodipine - PRN Hydralazine - Continue nutritional supplements - Continue home PRN Oxycodone - Scheduled Senna BID - Continue Ropinirole Patient will remain the ICU for hi flow oxygen and strict isolation, continue current treatment. 07/01/20 Patient's oxygen requirements in past 24 h - 80% at 8AM changed to 75% changed to 60% at 4PM Eating about 50-80% of meals On 8oz ensure with breakfast and dinner, and high protein jello with lunch Physical exam significantly improved crackles on L base VS trends - MAP 85-108 - Tmax 97.7 - HR 66-86 - SatO2 > 93% Intake and output - UO 1,780 - 24h balance -460 - Balance since admission +1,465 New lab results - Plt up from 155 to 190 - DD up from 1.74 yo 2.06 - Na down from 135 to 134 - PO4 stable at 2.4 - Magnesium down from 2 to 1.8 - Ferritin down from 371 to 358 - LDH down from PLAN - Continue Remdesivir day 5 and Dexamethasone day 4 - New Actemra dose today - 1u convalescent plasma today - Continue high flow O2 - Continue Tessalon Perles and guaifenesin - Repeat COVID labs in AM - Start Vitamin C for 10 days - Up to chair as much as possible - Continue Dulera - Continue acebutolol, losartan and amlodipine - PRN Hydralazine - Continue nutritional supplements - Continue home PRN Oxycodone - Scheduled Senna BID - Restart home Colace - Continue Ropinirole 07/02/20 Completed Remdesivir 5 day course yesterday Has tolerated weaning of FiO2 well Last BM 06/27 VS trends - [id number] - Tmax 98 - HR 62-85 - SatO2 > 85% Intake and output - UO 2,120 - 24h balance +360 - Balance since admission +1,825 New lab results - Na down from 134 to 133 - PO4 down from 2.4 to 2.3 - Mag up from 1.8 to 1.9 - Ferritin down from 358 to 313 - LDH down from 488 to 419 - CK down from 195 to 97 - CRP down from 4.9 to 3.1 - BNP down from 1002 to 639 PLAN - Continue Dexamethasone day 5 - Continue high flow O2 taper - Continue Tessalon Perles and guaifenesin - Repeat COVID labs in AM - Continue Vitamin C for 10 days, day 2 - Up to chair as much as possible - Continue Dulera - Request records from [facility] - Continue acebutolol, losartan and amlodipine - PRN Hydralazine - Dietary follow up - Continue nutritional supplements - Continue home PRN Oxycodone - Scheduled Colace - Lactulose q6h until BM then discontinue - Restart home Colace - Continue Ropinirole 07/03/20 O2 requirements have not increase, remains on high flow 35L at 55% Still having end expiratory wheezing but no crackles VS trends - BP 105-146/59-89 - Tmax 97.5 - HR 63-91 - SatO2 > 85% Intake and output - UO 2,650 - 24h balance +897 - Balance since admission +2,837 New lab results - WBC up from 9.83-11.36, 0 bands - D-dimer up from 2-2.25 - Sodium up from 133 234 - GFR stable at greater than 60 - Phosphorus up from 2.3-2.4 - Magnesium down from 1.9-1.8 - Ferritin down from 313-277 - LDH down from 491-437 - CRP down from 3.1-2 07/04/2020 Generally much better. Decreasing respiratory support. Currently on room air with high flow nasal cannula at 35 L Blood pressure adequately controlled WBC 11 D-dimer slightly up at 2.39 CRP down to 1.4 proBNP 1030, no significant change from yesterday but down from a few days ago. Remaining lab work not significantly abnormal - Plan Plan:: Acute hypoxemic respiratory failure due to COVID-19 Metabolic alkalosis Lymphopenia associated with COVID-19 - Continue Dexamethasone day 7 - Continue high flow O2 taper - Continue Tessalon Perles and guaifenesin - Repeat CBC, CMP, magnesium, d-dimer, CRP - Continue Vitamin C for day 02/05 - Up to chair as much as possible Asthma - Continue Dulera - PRN Albuterol Hypertension - Continue acebutolol, losartan and amlodipine - PRN Hydralazine Hypoalbuminemia - Dietary follow up - Continue nutritional supplements Chronic back pain - Continue home PRN Oxycodone Chronic constipation - Scheduled Colace Restless leg syndrome - Continue Ropinirole Intractable nausea and vomiting, resolved Acute respiratory alkalosis, resolved Hypochloremic alkalosis, resolved Hyponatremia/Hypomagnesemia/Hypochloremia/Hypokalemia, resolved UTI, completed treatment Mitral valve prolapse PROPHYLAXIS DVT- Lovenox GI- home PPI CODE STATUS: FULL CODE DISPOSITION: Patient will remain the ICU for hi flow oxygen and strict isolation, continue c urrent treatment. Will require hospital stay greater than 96 hours due to requirement of prolonged treatment regimen and need for O2 supplementation for COVID infection.
[2020-07-04] MEDS: rOPINIRole 1 MG Tab PO PRN (20:24)
[2020-07-04] MEDS: Famotidine 20 MG Tab PO SCH (20:24)
[2020-07-04] MEDS: oxyCODONE 5 MG Tab PO PRN (20:33)
[2020-07-04] MEDS: Melatonin 3 MG Tab PO PRN (20:33)
[2020-07-04] MEDS: Sodium Chloride 0.9% 10 ML Syringe FLUSH PRN (23:05)
[2020-07-05] MEDS: Ascorbic Acid 500 MG Tab PO SCH ×4 (02:22→21:05)
[2020-07-05] MEDS: Pantoprazole 40 MG Tab.CR PO SCH (06:29)
[2020-07-05] MEDS: Formoterol/Mometasone 200-5 MCG 8.8 GM Inhaler IH SCH ×2 (08:15→20:30)
[2020-07-05] MEDS: Rivaroxaban 15 MG Tab PO SCH (08:34)
[2020-07-05] MEDS: amLODIPine 2.5 MG Tab PO SCH (08:34)
[2020-07-05] MEDS: guaiFENesin 100 MG/5 ML Soln 10 ML UD Cup PO SCH ×3 (08:34→21:06)
[2020-07-05] MEDS: Losartan 100 MG Tab PO SCH (08:34)
[2020-07-05] MEDS: Benzonatate 100 MG Cap PO SCH ×3 (08:35→21:03)
[2020-07-05] MEDS: ACEBUTOLOL 200 MG PO SCH ×2 (08:35→21:05)
[2020-07-05] MEDS: Niacin 500 MG Tab.ER PO SCH (08:35)
[2020-07-05] MEDS: prednisoLONE Acetate 1% Ophth Susp 5 ML Bottle EYELF SCH ×3 (08:35→21:05)
[2020-07-05] MEDS: Dexamethasone 4 MG Tab PO SCH (08:35)
[2020-07-05] MEDS: Polyethylene Glycol 3350 Powder 17 GM Packet PO PRN (10:54)
--- NOTE | 2020-07-05 14:06 | PCM.PN ---
- General Info Date of Service: 07/05/20 Admission Dx/Problem (Free Text): Respiratory failure secondary to COVID 19 Subjective Update: Patient had an episode of A. fib RVR starting at 2300 hrs. Patient was placed on a Cardizem drip and converted to sinus rhythm. Cardizem drip was stopped thi s morning and patient has been in sinus rhythm. This is her second episode in 2 days of A. fib with RVR. Patient continues to improve. She was taken off of the high flow nasal cannula and is tolerating nasal cannula with 6 L well. Appetite remains good eating 100% of her meals yesterday. Patient has not had a bowel movement for 3 days. Functional Status: Reports: Pain Controlled - Review of Systems General: Reports: No Symptoms HEENT: Reports: No Symptoms Pulmonary: Reports: No Symptoms Cardiovascular: Reports: No Symptoms Gastrointestinal: Reports: No Symptoms Psychiatric: Reports: No Symptoms - Patient Data Vitals - Most Recent: Last Vital Signs Temp 97 F 07/05/20 12:00 Pulse 93 07/01/20 20:47 Resp 20 07/05/20 12:00 BP 137/71 07/05/20 12:00 Pulse Ox 93 L 07/05/20 12:42 Weight - Most Recent: 64.41 kg I&O - Last 24 Hours: Intake & Output 07/04/20 07/05/20 07/05/20 22:59 06:59 14:59 Intake Total 400 849 Output Total 700 1250 500 Balance -300 401 -500 Lab Results Last 24 Hours: Laboratory Results - last 24 hr 07/05/20 07/05/20 07/05/20 Range/Units 09:10 09:10 09:10 WBC 13.51 H (3.98-10.04) K/mm3 RBC 4.63 (3.98-5.22) M/mm3 Hgb 14.8 D (11.2-15.7) gm/dl Hct 41.1 (34.1-44.9) % MCV 88.8 (79.4-94.8) fl MCH 32.0 (25.6-32.2) pg MCHC 36.0 H (32.2-35.5) g/dl RDW Std Deviation 45.1 (36.4-46.3) fL Plt Count 311 D (182-369) K/mm3 MPV 8.8 L (9.4-12.3) fl Neut % (Auto) 81.1 H (34.0-71.1) % Lymph % (Auto) 3.8 L (19.3-51.7) % [place] % (Auto) 9.6 (4.7-12.5) % Eos % (Auto) 0 L (0.7-5.8) Baso % (Auto) 0.4 (0.1-1.2) % Neut # (Auto) 10.96 H (1.56-6.13) K/mm3 Lymph # (Auto) 0.51 L (1.18-3.74) K/mm3 [place] # (Auto) 1.30 H (0.24-0.36) K/mm3 Eos # (Auto) 0.00 L (0.04-0.36) K/mm3 Baso # (Auto) 0.05 (0.01-0.08) K/mm3 Manual Slide Review Abnormal smear D-Dimer, Quantitative 1.28 H (0.19-0.50) mg/L Sodium 134 L (136-145) mEq/L Potassium 3.9 (3.5-5.1) mEq/L Chloride 99 (98-107) mEq/L Carbon Dioxide 29 (21-32) mEq/L Anion Gap 9.9 (5-15) BUN 30 H (7-18) mg/dL Creatinine 0.7 (0.55-1.02) mg/dL Est Cr Clr Drug Dosing 58.01 mL/min Estimated GFR (MDRD) > 60 (>60) mL/min BUN/Creatinine Ratio 42.9 H (14-18) Glucose 126 H (83-115) mg/dL Calcium 8.2 L (8.5-10.1) mg/dL Magnesium 1.9 (1.8-2.4) mg/dl Total Bilirubin 0.6 (0.2-1.0) mg/dL AST 22 (15-37) U/L ALT 46 (14-59) U/L Alkaline Phosphatase 43 L (46-116) U/L Troponin I 0.025 (0.00-0.056) ng/mL C-Reactive Protein 1.2 H* (<1.0) mg/dL Total Protein 6.0 L (6.4-8.2) g/dl Albumin 2.6 L (3.4-5.0) g/dl Globulin 3.4 gm/dL Albumin/Globulin Ratio 0.8 L (1-2) Jose Results Last 24 Hours: Microbiology 06/27/20 22:05 Gram Stain - Final Sputum - Induced Sputum Culture - Preliminary Gram Negative Coccobacilli 06/27/20 15:15 Aerobic Blood Culture - Final Blood - Venous - Lab Draw NO GROWTH AFTER 7 DAYS Anaerobic Blood Culture - Final 06/27/20 15:15 Aerobic Blood Culture - Final Blood - Venous NO GROWTH AFTER 7 DAYS Anaerobic Blood Culture - Final Med Orders - Current: Current Medications Acetaminophen (Tylenol) 650 mg PO Q4H PRN PRN Reason: Pain (Mild 1-3)/fever Last Admin: 07/04/20 05:44 Dose: 650 mg Documented by: Amlodipine Besylate (Norvasc) 2.5 mg PO DAILY [facility] Last Admin: 07/05/20 08:34 Dose: 2.5 mg Documented by: Ascorbic Acid (Vitamin C) 1,500 mg PO Q6H [facility] Last Admin: 07/05/20 08:34 Dose: 1,500 mg Documented by: Benzonatate (Tessalon Perles) 100 mg PO TID [facility] Last Admin: 07/05/20 08:35 Dose: 100 mg Documented by: Dexamethasone (Dexamethasone) 6 mg PO DAILY [facility] Stop: 07/07/20 09:01 Last Admin: 07/05/20 08:35 Dose: 6 mg Documented by: Famotidine (Pepcid) 20 mg PO BEDTIME [facility] Last Admin: 07/04/20 20:24 Dose: 20 mg Documented by: Guaifenesin (Robitussin) 400 mg PO TID [facility] Last Admin: 07/05/20 08:34 Dose: 400 mg Documented by: Lactated Ringer's (Ringers, Lactated) 500 mls @ 100 mls/hr IV ASDIRECTED [facility] Last Admin: 07/01/20 18:09 Dose: 100 mls/hr Documented by: Diltiazem HCl 100 mg/ Sodium (Chloride) 100 mls @ 5 mls/hr IV TITRATE [facility]; Protocol Last Titration: 07/05/20 08:15 Dose: 0 mg/hr, 0 mls/hr Documented by: Losartan Potassium (Cozaar) 100 mg PO DAILY [facility] Last Admin: 07/05/20 08:34 Dose: 100 mg Documented by: Melatonin (Melatonin) 9 mg PO BEDTIME PRN PRN Reason: Insomnia Last Admin: 07/04/20 20:33 Dose: 9 mg Documented by: Mometasone Furoate/Formoterol Fumar (Dulera 200-5 Mcg) 2 puff IH BID [facility] Last Admin: 07/05/20 08:15 Dose: 2 puff Documented by: Niacin (Niaspan) 250 mg PO DAILY [facility] Last Admin: 07/05/20 08:35 Dose: 250 mg Documented by: Ondansetron HCl (Zofran) 4 mg IVPUSH Q8H PRN PRN Reason: Nausea Last Admin: 06/30/20 16:03 Dose: 4 mg Documented by: Oxycodone HCl (Oxycodone) 5 mg PO DAILY PRN PRN Reason: Pain Last Admin: 07/04/20 20:33 Dose: 5 mg Documented by: Pantoprazole Sodium (Protonix) 40 mg PO DAILY@0700 [facility] Last Admin: 07/05/20 06:29 Dose: 40 mg Documented by: Acebutolol 200 Mg 0 each PO BID [facility] Polyethylene Glycol (Miralax) 17 gm PO DAILY PRN PRN Reason: Constipation Last Admin: 07/05/20 10:54 Dose: 17 gm Documented by: Prednisolone Acetate (Pred Forte 1% Ophth Susp) 0 ml EYELF TID [facility] Last Admin: 07/05/20 08:35 Dose: 1 drop Documented by: Rivaroxaban (Xarelto) 20 mg PO DAILY [facility] Last Admin: 07/05/20 08:34 Dose: 20 mg Documented by: Ropinirole HCl (Requip) 1 - 1.5 mg PO BEDTIME PRN PRN Reason: Restless leg syndrome Last Admin: 07/04/20 20:24 Dose: 1 mg Documented by: Sodium Chloride (Saline Flush) 10 ml FLUSH ONETIME PRN PRN Reason: IV FLUSH Last Admin: 07/04/20 23:05 Dose: 10 ml Documented by: Discontinued Medications Dexamethasone (Dexamethasone) 6 mg IVPUSH DAILY [facility] Last Admin: 06/30/20 08:40 Dose: 6 mg Documented by: Diltiazem HCl (Cardizem) 50 mg IVPUSH ONETIME ONE Stop: 07/03/20 14:09 Last Admin: 07/03/20 14:31 Dose: Not Given Documented by: Diltiazem HCl (Cardizem) 17 mg 0.25 mg/kg (17 mg) IVPUSH NOW ONE Stop: 07/03/20 14:21 Last Admin: 07/03/20 14:25 Dose: 17 mg Documented by: Diltiazem HCl (Cardizem) 24 mg 0.35 mg/kg (24 mg) IVPUSH NOW ONE Stop: 07/03/20 15:32 Last Admin: 07/03/20 15:52 Dose: 24 mg Documented by: Diltiazem HCl (Cardizem) 24 mg 0.35 mg/kg (24 mg) IV NOW ONE Stop: 07/03/20 15:49 Last Admin: 07/03/20 16:39 Dose: Not Given Documented by: Docusate Sodium (Colace) 200 mg PO BID [facility] Last Admin: 07/02/20 08:47 Dose: 200 mg Documented by: Enoxaparin Sodium (Lovenox) 40 mg SUBCUT DAILY [facility] Last Admin: 07/03/20 08:29 Dose: 40 mg Documented by: Guaifenesin (Robitussin) 400 mg PO Q8H [facility] Last Admin: 06/30/20 10:11 Dose: 400 mg Documented by: Sodium Chloride (Normal Saline) 1,000 mls @ 1,000 mls/hr IV .BOLUS [facility] Last Admin: 06/27/20 20:38 Dose: 1,000 mls/hr Documented by: Sodium Chloride (Normal Saline) 1,000 mls @ 125 mls/hr IV ASDIRECTED [facility] Stop: 06/28/20 02:14 Last Admin: 06/28/20 04:17 Dose: 125 mls/hr Documented by: REMDESIVIR (EUA) 200 mg/ (Sodium Chloride) 250 mls @ 250 mls/hr IV ONETIME [facility] Stop: 06/27/20 18:04 Last Admin: 06/28/20 03:07 Dose: Not Given Documented by: REMDESIVIR (EUA) 100 mg/ (Sodium Chloride) 100 mls @ 100 mls/hr IV Q24H [facility] Stop: 07/01/20 21:59 Last Admin: 07/01/20 20:48 Dose: 100 mls/hr Documented by: Sodium Chloride (Normal Saline) 100 mls @ 75 mls/hr IV ASDIRECTED [facility] Stop: 06/28/20 09:50 Last Admin: 06/27/20 20:15 Dose: 75 mls/hr Documented by: REMDESIVIR (EUA) 200 mg/ (Sodium Chloride) 250 mls @ 250 mls/hr IV ONETIME [facility] Stop: 06/27/20 21:02 Last Admin: 06/28/20 16:21 Dose: Not Given Documented by: REMDESIVIR (EUA) 200 mg/ (Sodium Chloride) 250 mls @ 250 mls/hr IV ONETIME [facility] Stop: 06/27/20 20:59 Last Admin: 06/27/20 20:59 Dose: 250 mls/hr Documented by: Tocilizumab 400 mg/ Sodium (Chloride) 100 mls @ 100 mls/hr IV Q12H [facility] Stop: 06/28/20 23:59 Last Admin: 06/28/20 22:00 Dose: 100 mls/hr Documented by: Potassium Phosphate 30 mmole/ (Sodium Chloride) 510 mls @ 102 mls/hr IV ONETIME ONE Stop: 06/28/20 16:59 Last Admin: 06/28/20 11:18 Dose: 102 mls/hr Documented by: Potassium Chloride 10 meq/ (Premix) 100 mls @ 100 mls/hr IV Q1H [facility] Stop: 06/28/20 19:59 Last Admin: 06/28/20 18:58 Dose: 100 mls/hr Documented by: Magnesium Sulfate 4 gm/ Premix 50 mls @ 12.5 mls/hr IV ONETIME ONE Stop: 06/28/20 20:59 Last Admin: 06/28/20 16:49 Dose: 12.5 mls/hr Documented by: Sodium Chloride (Normal Saline) Confirm Administered Dose 100 mls @ as directed .ROUTE .STK-MED ONE Stop: 06/28/20 16:38 Last Admin: 06/28/20 17:34 Dose: Not Given Documented by: Sodium Chloride (Normal Saline) 250 mls @ 10 mls/hr IV ASDIRECTED [facility] Stop: 06/28/20 23:00 Last Admin: 06/28/20 17:46 Dose: 10 mls/hr Documented by: Tocilizumab 400 mg/ Sodium (Chloride) 100 mls @ 100 mls/hr IV ONETIME ONE Stop: 07/01/20 12:59 Last Admin: 07/01/20 12:38 Dose: 100 mls/hr Documented by: Magnesium Sulfate 2 gm/ Premix 50 mls @ 50 mls/hr IV Q1H [facility] Stop: 07/01/20 15:29 Last Admin: 07/01/20 14:43 Dose: 50 mls/hr Documented by: Potassium Chloride 10 meq/ (Premix) 100 mls @ 100 mls/hr IV Q1H [facility] Stop: 07/01/20 18:29 Last Admin: 07/01/20 17:59 Dose: 100 mls/hr Documented by: Sodium Chloride (Normal Saline) Confirm Administered Dose 250 mls @ as directed .ROUTE .STK-MED ONE Stop: 07/01/20 18:37 Last Admin: 07/01/20 20:52 Dose: 50 mls/hr Documented by: Iopamidol (Isovue-370 (76%)) 100 ml IVPUSH ONETIME ONE Stop: 06/27/20 19:16 Last Admin: 06/27/20 20:00 Dose: 100 ml Documented by: Lactulose (Cephulac) 20 gm PO Q6H [facility] Last Admin: 07/02/20 19:42 Dose: Not Given Documented by: Nitrofurantoin Macrocrystals (Macrobid) 100 mg PO BID [facility] Stop: 06/30/20 21:01 Last Admin: 06/30/20 20:42 Dose: 100 mg Documented by: Ondansetron HCl (Zofran) 4 mg IVPUSH ONETIME ONE Stop: 06/27/20 14:18 Last Admin: 06/27/20 14:38 Dose: 4 mg Documented by: Ondansetron HCl (Zofran) 4 mg IVPUSH Q8H [facility] Stop: 06/28/20 02:16 Last Admin: 06/28/20 04:12 Dose: 4 mg Documented by: Acebutolol 200 Mg 200 each PO DAILY [facility] Last Admin: 06/29/20 09:06 Dose: Not Given Documented by: Acebutolol 200 Mg 0 each PO DAILY [facility] Last Admin: 07/05/20 08:35 Dose: 1 each Documented by: Rivaroxaban (Xarelto) 15 mg PO BID [facility] Last Admin: 07/03/20 15:20 Dose: Not Given Documented by: Senna (Senna) 8.6 mg PO DAILY [facility] Last Admin: 07/02/20 08:50 Dose: 8.6 mg Documented by: Sodium Chloride (Saline Flush) 10 ml FLUSH ASDIRECTED PRN PRN Reason: Keep Vein Open Last Admin: 06/27/20 15:36 Dose: 10 ml Documented by: - Exam Quality Assessment: Supplemental Oxygen (Nasal cannula) General: Alert, Oriented HEENT: Pupils Equal, Mucous Membr. Moist/[place] Neck: Supple Lungs: Normal Respiratory Effort, Wheezing (Expiratory) Cardiovascular: Regular Rate, Regular Rhythm GI/Abdominal Exam: Normal Bowel Sounds, Soft, Non-Tender, No Distention Extremities: Normal Inspection, Normal Range of Motion, Non-Tender, No Pedal Edema, Normal Capillary Refill Skin: Warm, Dry, Intact Neurological: No New Focal Deficit Psy/Mental Status: Alert, Normal Affect, Normal Mood Sepsis Event Note - Evaluation Sepsis Screening Result: No Definite Risk - Focused Exam Vital Signs: Vital Signs Temp Resp BP BP Pulse Ox Pulse Ox Pulse Ox 07/05/20 12:42 93 L 07/05/20 12:00 97 F 20 137/71 94 L 07/05/20 10:01 90 L 07/05/20 08:45 97.1 F 20 110/69 90 L 07/05/20 08:34 110/69 07/05/20 08:17 93 L 07/05/20 08:16 93 L 07/05/20 07:10 93 L 07/05/20 07:00 112/61 93 L 07/05/20 06:10 92 L 07/05/20 06:00 114/62 92 L 07/05/20 05:00 117/67 93 L 07/05/20 04:30 91 L 07/05/20 04:00 97.9 F 24 H 127/76 91 L 07/05/20 03:00 117/73 91 L - Problem List & Annotations (1) Acute hypoxemic respiratory failure due to COVID-19 SNOMED Code(s): 052006332 Code(s): U07.1 - COVID-19; J96.01 - ACUTE RESPIRATORY FAILURE WITH HYPOXIA Status: Acute Current Visit: Yes (2) Asthma SNOMED Code(s): 917602209 Code(s): J45.909 - UNSPECIFIED ASTHMA, UNCOMPLICATED Status: Acute Current Visit: Yes (3) Chronic back pain SNOMED Code(s): 798384860 Code(s): M54.9 - DORSALGIA, UNSPECIFIED; G89.29 - OTHER CHRONIC PAIN Status: Acute Current Visit: Yes (4) Hypoalbuminemia SNOMED Code(s): 231024782 Code(s): E88.09 - OTH DISORDERS OF PLASMA-PROTEIN METABOLISM, NEC Status: Acute Current Visit: Yes (5) Hyponatremia SNOMED Code(s): 45452040 Code(s): E87.1 - HYPO-OSMOLALITY AND HYPONATREMIA Status: Acute Current Visit: Yes - Problem List Review Problem List Initiated/Reviewed/Updated: Yes - My Orders Last 24 Hours: My Active Orders 07/04/20 16:13 IS (RT) [RT Incentive Spirometry] [RC] ASDIRECTED 07/04/20 17:08 RT Oxygen High Flow [RESPCARE] Routine 07/05/20 10:19 polyethylene glycoL 3350 [MiraLAX] 17 gm PO DAILY PRN 07/05/20 21:00 Patient's Own Medication [Ptom] 0 each PO BID 07/06/20 Echo Comp wo Cont [US] Routine - Assessment Assessment:: 06/27/20 - Worsening fatigue with malaise and productive cough - Daughter whom she sees regularly was just diagnosed with COVID - History of recurrent pneumonia and asthma - VS on admission : 141/61 (87), 72x', RR 25x', 97.2, 76% on RA - Not on and has never been on O2 at home - Labs on admission: - WBC 10.04 - BMP: Na 127, K 3.6, Cl 91, CO2 32, GFR 60 - DD: 0.49/Ferritin 505/ LDH 338/ ProBNP 3,684/ CRP 6.2 - ABGs: 7.44/44.3/88/29.4/96.5 on 4L NC - Crackles on left base on physical exam and patient in obvious respiratory distress - Worsening hypoxemia + decreased mobility in the past week--> will r/o PE - Has not been able to tolerate PO intake in 5 days - Diagnosed with UTI recently and started on 7 day antibiotic course - Still having symptoms although these are improving - Has been taking ATBs - Asthma controlled, never been intubated and doesn't recall last exacerbation PLAN - Start Remdesivir, to complete 5 days - Start Dexamethasone, to complete 10 days - Start Tocilizumab in the morning - CTA chest - NS @ 125ml/hr x 1 bag - Replace magnesium with 2g IV MgSO4 - Replace 20mEq IV KCl - Repeat UA with culture if needed - Continue home medication once available - Request records from Dr. Antoine' office for urine culture results - Request records from [place] [facility] - Prealbumin level - Vitamin levels Patient will be admitted to the regular medical floor on oxygen supplementation, will be started on Remdesivir and Dexamethasone with repeat labs in AM 06/28/20 Around midnight has to increase NC to 7LPM--> 2hr later to 12LPM-->3AM increased to 15 without change in oxygenation --> placed on hi flow CT negative for PE VS trend - BP 110-148/48-80 - Tmax 100.2 - HR 79-84 - SatO2 > 75% Lab results - Platelets down from 129 to 109 - DD up from 0.68 to 1.03 - Na up from 130 to 133 - K down from 3.6 to 3.2 - Ca down from 8.6 to 7.5 - PO4 down from 2.6 to 2.3 - Mg down from 1..7 to 1.5 - Ferritin up from 323 to 325 - LDH up from 294 to 308 - CRP down from 19.5 to 18 - ABGs overnight : #1- 7.38/33.7/58/19/88---> #2- 7.41/31.8/66/19.9/92.4 PLAN - Continue Remdesivir and Dexamethasone day 2 - Start Tocilizumab today - Start convalescent plasma - Transfer to ICU and place on high flow oxygen - D/C IVF - Replace magnesium, K and PO4 with 4g IV MgSO4, 30mMol of KPO4 and 30mEq of KCl - Restart Macrobid - Continue home inhalers - Dietary consult - Start nutritional supplement 06/29/20 Continues to require high flow oxygen at 40L with 80% FiO2 Receive 2u of convalescent plasma and 2 doses of Actemra Requiring stand by assist to commode Diet with 8oz ensure with breakfast and dinner and high protein Jello with lunch--> eating about 50-85% VS trends - MAP 77-90 - Tmax 98.1 - HR 70-85 - SatO2 > 89% Intake and output - UO 1,795 - 24h balance +402 New lab results - Platelets up from 109 to 124 - DD up from 1.03 to 1.52 - Na up from 133 to 136 - K up from 3.2 to 3.7 - PO4 up from 2.3 to 2.6 - Mg up from 1.5 to 2.5 - Ferritin up from 352 to 376 - LDH up from 308 to 408 - CRP down from 18 to 17.1 - BNP up from 921 to 1,330 PLAN - Continue Remdesivir and Dexamethasone day 3 - Change dexamethasone to PO - Continue high flow O2 - Continue Tessalon Perles and guaifenesin - Restart Macrobid - Repeat UA with culture if needed - Request records from Dr. Antoine' office for urine culture results - Continue Dulera - Continue acebutolol, losartan and amlodipine - PRN Hydralazine - Dietary consult - Continue nutritional supplements - Continue Ropinirole 06/30/20 VS trends - BP 128-133/69-91 - Tmax 97.7 - HR 72-82 - SatO2 > 86% Intake and output - UO 2,055 - 24h balance -735 New lab results - Na down from 136 to 135 - K up from 3.7 to 4 - PO4 down from 2.6 to 2.4 - Mg down from 2.5 to 2 - Ferritin down from 376 to 371 - LDH up from 408 to 501 - CK up from 193 to 408 - CRP down from 17.1 to 8.1 - BNP up from 1330 to 1521 - Procalcitonin negative x 2 PLAN - Continue Remdesivir day 4 and Dexamethasone day 3 - Transition dexamethasone to PO - Continue high flow O2 - Continue Tessalon Perles and guaifenesin - Repeat COVID labs in AM - Continue Macrobid, last dose - Continue Dulera - Continue acebutolol, losartan and amlodipine - PRN Hydralazine - Continue nutritional supplements - Continue home PRN Oxycodone - Scheduled Senna BID - Continue Ropinirole Patient will remain the ICU for hi flow oxygen and strict isolation, continue current treatment. 07/01/20 Patient's oxygen requirements in past 24 h - 80% at 8AM changed to 75% changed to 60% at 4PM Eating about 50-80% of meals On 8oz ensure with breakfast and dinner, and high protein jello with lunch Physical exam significantly improved crackles on L base VS trends - MAP 85-108 - Tmax 97.7 - HR 66-86 - SatO2 > 93% Intake and output - UO 1,780 - 24h balance -460 - Balance since admission +1,465 New lab results - Plt up from 155 to 190 - DD up from 1.74 yo 2.06 - Na down from 135 to 134 - PO4 stable at 2.4 - Magnesium down from 2 to 1.8 - Ferritin down from 371 to 358 - LDH down from PLAN - Continue Remdesivir day 5 and Dexamethasone day 4 - New Actemra dose today - 1u convalescent plasma today - Continue high flow O2 - Continue Tessalon Perles and guaifenesin - Repeat COVID labs in AM - Start Vitamin C for 10 days - Up to chair as much as possible - Continue Dulera - Continue acebutolol, losartan and amlodipine - PRN Hydralazine - Continue nutritional supplements - Continue home PRN Oxycodone - Scheduled Senna BID - Restart home Colace - Continue Ropinirole 07/02/20 Completed Remdesivir 5 day course yesterday Has tolerated weaning of FiO2 well Last BM 06/27 VS trends - [id number]/72-91 - Tmax 98 - HR 62-85 - SatO2 > 85% Intake and output - UO 2,120 - 24h balance +360 - Balance since admission +1,825 New lab results - Na down from 134 to 133 - PO4 down from 2.4 to 2.3 - Mag up from 1.8 to 1.9 - Ferritin down from 358 to 313 - LDH down from 488 to 419 - CK down from 195 to 97 - CRP down from 4.9 to 3.1 - BNP down from 1002 to 639 PLAN - Continue Dexamethasone day 5 - Continue high flow O2 taper - Continue Tessalon Perles and guaifenesin - Repeat COVID labs in AM - Continue Vitamin C for 10 days, day 2 - Up to chair as much as possible - Continue Dulera - Request records from [place] [facility] - Continue acebutolol, losartan and amlodipine - PRN Hydralazine - Dietary follow up - Continue nutritional supplements - Continue home PRN Oxycodone - Scheduled Colace - Lactulose q6h until BM then discontinue - Restart home Colace - Continue Ropinirole 07/03/20 O2 requirements have not increase, remains on high flow 35L at 55% Still having end expiratory wheezing but no crackles VS trends - BP 105-146/59-89 - Tmax 97.5 - HR 63-91 - SatO2 > 85% Intake and output - UO 2,650 - 24h balance +897 - Balance since admission +2,837 New lab results - WBC up from 9.83-11.36, 0 bands - D-dimer up from 2-2.25 - Sodium up from 133 234 - GFR stable at greater than 60 - Phosphorus up from 2.3-2.4 - Magnesium down from 1.9-1.8 - Ferritin down from 313-277 - LDH down from 491-437 - CRP down from 3.1-2 07/04/2020 Generally much better. Decreasing respiratory support. Currently on room air with high flow nasal cannula at 35 L Blood pressure adequately controlled WBC 11 D-dimer slightly up at 2.39 CRP down to 1.4 proBNP 1030, no significant change from yesterday but down from a few days ago. Remaining lab work not significantly abnormal 07/05/2020 Patient had another episode of atrial fibrillation with RVR and spontaneously converted back to sinus rhythm. She was placed on Cardizem drip which was stopped this morning. Anticoagulated with Xarelto Continues a slow and steady recovery. Blood pressure well controlled 2-1/2 kg weight loss over 24 hours Decreased O2 supplementation to 5 L nasal cannula and maintaining oxygen saturations in the low to mid 90s Blood pressure continues adequate control White blood cell count increased slightly to 13.5, likely steroid effect Gram-negative coccobacilli from sputum culture sent to [facility] reference laboratory for further identification testing D-dimer down to 1.28, CRP 1.2 - Plan Plan:: Acute hypoxemic respiratory failure due to COVID-19 Metabolic alkalosis Lymphopenia associated with COVID-19 - Continue Dexamethasone day 8 - Continue to taper O2 - Continue Tessalon Perles and guaifenesin - Repeat CBC, CMP, magnesium, d-dimer, CRP - Continue Vitamin C for day 03/07 - Up to chair as much as possible 2 episodes of atrial fibrillation with RVR Converted to sinus rhythm spontaneously on Cardizem drip Increase acebutolol to 200 twice daily for rate control Echocardiogram in the morning Discussed with her [employer] tomorrow Asthma - Continue Dulera - PRN Albuterol Hypertension - Continue acebutolol, losartan and amlodipine - PRN Hydralazine Hypoalbuminemia - Dietary follow up - Continue nutritional supplements Chronic back pain - Continue home PRN Oxycodone Chronic constipation - Scheduled Colace Restless leg syndrome - Continue Ropinirole Intractable nausea and vomiting, resolved Acute respiratory alkalosis, resolved Hypochloremic alkalosis, resolved Hyponatremia/Hypomagnesemia/Hypochloremia/Hypokalemia, resolved UTI, completed treatment Mitral valve prolapse PROPHYLAXIS DVT- Lovenox GI- home PPI CODE STATUS: FULL CODE DISPOSITION: Patient will remain the ICU for hi flow oxygen and strict isolation, continue current treatment. Will require hospital stay greater than 96 hours due to requirement of prolonged treatment regimen and need for O2 supplementation for COVID infection.
[2020-07-05] MEDS: rOPINIRole 1 MG Tab PO PRN (21:03)
[2020-07-05] MEDS: Melatonin 3 MG Tab PO PRN (21:03)
[2020-07-05] MEDS: Famotidine 20 MG Tab PO SCH (21:03)
[2020-07-05] MEDS: oxyCODONE 5 MG Tab PO PRN (21:04)
[2020-07-06] MEDS: Ascorbic Acid 500 MG Tab PO SCH ×4 (01:57→20:43)
[2020-07-06] MEDS: Acetaminophen 325 MG Tab PO PRN (01:57)
[2020-07-06] MEDS: Pantoprazole 40 MG Tab.CR PO SCH (06:52)
[2020-07-06] MEDS: Formoterol/Mometasone 200-5 MCG 8.8 GM Inhaler IH SCH ×2 (08:16→20:24)
[2020-07-06] MEDS: Polyethylene Glycol 3350 Powder 17 GM Packet PO PRN (08:51)
[2020-07-06] MEDS: Benzonatate 100 MG Cap PO SCH ×3 (08:52→20:44)
[2020-07-06] MEDS: Niacin 500 MG Tab.ER PO SCH (08:52)
[2020-07-06] MEDS: amLODIPine 2.5 MG Tab PO SCH (08:52)
[2020-07-06] MEDS: Losartan 100 MG Tab PO SCH (08:52)
[2020-07-06] MEDS: guaiFENesin 100 MG/5 ML Soln 10 ML UD Cup PO SCH ×3 (08:52→20:42)
[2020-07-06] MEDS: Rivaroxaban 15 MG Tab PO SCH (08:53)
[2020-07-06] MEDS: Dexamethasone 4 MG Tab PO SCH (08:53)
[2020-07-06] MEDS: ACEBUTOLOL 200 MG PO SCH ×2 (08:57→20:45)
[2020-07-06] MEDS: prednisoLONE Acetate 1% Ophth Susp 5 ML Bottle EYELF SCH ×3 (08:57→20:44)
[2020-07-06] MEDS: Sodium Chloride 0.9% 10 ML Syringe FLUSH PRN (09:03)
--- NOTE | 2020-07-06 13:00 | PCM.PN ---
- General Info Date of Service: 07/06/20 Admission Dx/Problem (Free Text): Respiratory failure secondary to COVID 19 Subjective Update: Patient continues to improve. Appetite this morning was good. No bowel movement for last 3 days. On MiraLAX since yesterday. Second dose given this morning. Decreased shortness of breath and improved oxygenation. - Patient Data Vitals - Most Recent: Last Vital Signs Temp 97.5 F 07/06/20 12:00 Pulse 93 07/01/20 20:47 Resp 18 07/06/20 12:00 BP 124/74 07/06/20 12:00 Pulse Ox 91 L 07/06/20 12:30 Weight - Most Recent: 62.777 kg I&O - Last 24 Hours: Intake & Output 07/05/20 07/06/20 07/06/20 22:59 06:59 14:59 Intake Total 1480 500 Output Total 800 625 625 Balance 680 125 -658 Jose Results Last 24 Hours: Microbiology 06/27/20 22:05 Gram Stain - Final Sputum - Induced Sputum Culture - Preliminary Gram Negative Coccobacilli Med Orders - Current: Current Medications Acetaminophen (Tylenol) 650 mg PO Q4H PRN PRN Reason: Pain (Mild 1-3)/fever Last Admin: 07/06/20 01:57 Dose: 650 mg Documented by: Amlodipine Besylate (Norvasc) 2.5 mg PO DAILY [facility] Last Admin: 07/06/20 08:52 Dose: 2.5 mg Documented by: Ascorbic Acid (Vitamin C) 1,500 mg PO Q6H [facility] Last Admin: 07/06/20 08:51 Dose: 1,500 mg Documented by: Benzonatate (Tessalon Perles) 100 mg PO TID [facility] Last Admin: 07/06/20 08:52 Dose: 100 mg Documented by: Dexamethasone (Dexamethasone) 6 mg PO DAILY [facility] Stop: 07/07/20 09:01 Last Admin: 07/06/20 08:53 Dose: 6 mg Documented by: Famotidine (Pepcid) 20 mg PO BEDTIME [facility] Last Admin: 07/05/20 21:03 Dose: 20 mg Documented by: Guaifenesin (Robitussin) 400 mg PO TID [facility] Last Admin: 07/06/20 08:52 Dose: 400 mg Documented by: Lactated Ringer's (Ringers, Lactated) 500 mls @ 100 mls/hr IV ASDIRECTED [facility] Last Admin: 07/01/20 18:09 Dose: 100 mls/hr Documented by: Diltiazem HCl 100 mg/ Sodium (Chloride) 100 mls @ 5 mls/hr IV TITRATE [facility]; Protocol Last Titration: 07/05/20 08:15 Dose: 0 mg/hr, 0 mls/hr Documented by: Losartan Potassium (Cozaar) 100 mg PO DAILY [facility] Last Admin: 07/06/20 08:52 Dose: 100 mg Documented by: Melatonin (Melatonin) 9 mg PO BEDTIME PRN PRN Reason: Insomnia Last Admin: 07/05/20 21:03 Dose: 9 mg Documented by: Mometasone Furoate/Formoterol Fumar (Dulera 200-5 Mcg) 2 puff IH BID [facility] Last Admin: 07/06/20 08:16 Dose: 2 puff Documented by: Niacin (Niaspan) 250 mg PO DAILY [facility] Last Admin: 07/06/20 08:52 Dose: 250 mg Documented by: Ondansetron HCl (Zofran) 4 mg IVPUSH Q8H PRN PRN Reason: Nausea Last Admin: 06/30/20 16:03 Dose: 4 mg Documented by: Oxycodone HCl (Oxycodone) 5 mg PO DAILY PRN PRN Reason: Pain Last Admin: 07/05/20 21:04 Dose: 5 mg Documented by: Pantoprazole Sodium (Protonix) 40 mg PO DAILY@0700 [facility] Last Admin: 07/06/20 06:52 Dose: 40 mg Documented by: Acebutolol 200 Mg 0 each PO BID [facility] Last Admin: 07/06/20 08:57 Dose: 1 each Documented by: Polyethylene Glycol (Miralax) 17 gm PO DAILY PRN PRN Reason: Constipation Last Admin: 07/06/20 08:51 Dose: 17 gm Documented by: Prednisolone Acetate (Pred Forte 1% Ophth Susp) 0 ml EYELF TID [facility] Last Admin: 07/06/20 08:57 Dose: 1 drop Documented by: Rivaroxaban (Xarelto) 20 mg PO DAILY [facility] Ropinirole HCl (Requip) 1 - 1.5 mg PO BEDTIME PRN PRN Reason: Restless leg syndrome Last Admin: 07/05/20 21:03 Dose: 1 mg Documented by: Sodium Chloride (Saline Flush) 10 ml FLUSH ONETIME PRN PRN Reason: IV FLUSH Last Admin: 07/06/20 09:03 Dose: 10 ml Documented by: Discontinued Medications Dexamethasone (Dexamethasone) 6 mg IVPUSH DAILY [facility] Last Admin: 06/30/20 08:40 Dose: 6 mg Documented by: Diltiazem HCl (Cardizem) 50 mg IVPUSH ONETIME ONE Stop: 07/03/20 14:09 Last Admin: 07/03/20 14:31 Dose: Not Given Documented by: Diltiazem HCl (Cardizem) 17 mg 0.25 mg/kg (17 mg) IVPUSH NOW ONE Stop: 07/03/20 14:21 Last Admin: 07/03/20 14:25 Dose: 17 mg Documented by: Diltiazem HCl (Cardizem) 24 mg 0.35 mg/kg (24 mg) IVPUSH NOW ONE Stop: 07/03/20 15:32 Last Admin: 07/03/20 15:52 Dose: 24 mg Documented by: Diltiazem HCl (Cardizem) 24 mg 0.35 mg/kg (24 mg) IV NOW ONE Stop: 07/03/20 15:49 Last Admin: 07/03/20 16:39 Dose: Not Given Documented by: Docusate Sodium (Colace) 200 mg PO BID [facility] Last Admin: 07/02/20 08:47 Dose: 200 mg Documented by: Enoxaparin Sodium (Lovenox) 40 mg SUBCUT DAILY [facility] Last Admin: 07/03/20 08:29 Dose: 40 mg Documented by: Guaifenesin (Robitussin) 400 mg PO Q8H [facility] Last Admin: 06/30/20 10:11 Dose: 400 mg Documented by: Sodium Chloride (Normal Saline) 1,000 mls @ 1,000 mls/hr IV .BOLUS [facility] Last Admin: 06/27/20 20:38 Dose: 1,000 mls/hr Documented by: Sodium Chloride (Normal Saline) 1,000 mls @ 125 mls/hr IV ASDIRECTED [facility] Stop: 06/28/20 02:14 Last Admin: 06/28/20 04:17 Dose: 125 mls/hr Documented by: REMDESIVIR (EUA) 200 mg/ (Sodium Chloride) 250 mls @ 250 mls/hr IV ONETIME [facility] Stop: 06/27/20 18:04 Last Admin: 06/28/20 03:07 Dose: Not Given Documented by: REMDESIVIR (EUA) 100 mg/ (Sodium Chloride) 100 mls @ 100 mls/hr IV Q24H [facility] Stop: 07/01/20 21:59 Last Admin: 07/01/20 20:48 Dose: 100 mls/hr Documented by: Sodium Chloride (Normal Saline) 100 mls @ 75 mls/hr IV ASDIRECTED [facility] Stop: 06/28/20 09:50 Last Admin: 06/27/20 20:15 Dose: 75 mls/hr Documented by: REMDESIVIR (EUA) 200 mg/ (Sodium Chloride) 250 mls @ 250 mls/hr IV ONETIME [facility] Stop: 06/27/20 21:02 Last Admin: 06/28/20 16:21 Dose: Not Given Documented by: REMDESIVIR (EUA) 200 mg/ (Sodium Chloride) 250 mls @ 250 mls/hr IV ONETIME [facility] Stop: 06/27/20 20:59 Last Admin: 06/27/20 20:59 Dose: 250 mls/hr Documented by: Tocilizumab 400 mg/ Sodium (Chloride) 100 mls @ 100 mls/hr IV Q12H [facility] Stop: 06/28/20 23:59 Last Admin: 06/28/20 22:00 Dose: 100 mls/hr Documented by: Potassium Phosphate 30 mmole/ (Sodium Chloride) 510 mls @ 102 mls/hr IV ONETIME ONE Stop: 06/28/20 16:59 Last Admin: 06/28/20 11:18 Dose: 102 mls/hr Documented by: Potassium Chloride 10 meq/ (Premix) 100 mls @ 100 mls/hr IV Q1H [facility] Stop: 06/28/20 19:59 Last Admin: 06/28/20 18:58 Dose: 100 mls/hr Documented by: Magnesium Sulfate 4 gm/ Premix 50 mls @ 12.5 mls/hr IV ONETIME ONE Stop: 06/28/20 20:59 Last Admin: 06/28/20 16:49 Dose: 12.5 mls/hr Documented by: Sodium Chloride (Normal Saline) Confirm Administered Dose 100 mls @ as directed .ROUTE .STK-MED ONE Stop: 06/28/20 16:38 Last Admin: 06/28/20 17:34 Dose: Not Given Documented by: Sodium Chloride (Normal Saline) 250 mls @ 10 mls/hr IV ASDIRECTED [facility] Stop: 06/28/20 23:00 Last Admin: 06/28/20 17:46 Dose: 10 mls/hr Documented by: Tocilizumab 400 mg/ Sodium (Chloride) 100 mls @ 100 mls/hr IV ONETIME ONE Stop: 07/01/20 12:59 Last Admin: 07/01/20 12:38 Dose: 100 mls/hr Documented by: Magnesium Sulfate 2 gm/ Premix 50 mls @ 50 mls/hr IV Q1H [facility] Stop: 07/01/20 15:29 Last Admin: 07/01/20 14:43 Dose: 50 mls/hr Documented by: Potassium Chloride 10 meq/ (Premix) 100 mls @ 100 mls/hr IV Q1H [facility] Stop: 07/01/20 18:29 Last Admin: 07/01/20 17:59 Dose: 100 mls/hr Documented by: Sodium Chloride (Normal Saline) Confirm Administered Dose 250 mls @ as directed .ROUTE .STK-MED ONE Stop: 07/01/20 18:37 Last Admin: 07/01/20 20:52 Dose: 50 mls/hr Documented by: Iopamidol (Isovue-370 (76%)) 100 ml IVPUSH ONETIME ONE Stop: 06/27/20 19:16 Last Admin: 06/27/20 20:00 Dose: 100 ml Documented by: Lactulose (Cephulac) 20 gm PO Q6H [facility] Last Admin: 07/02/20 19:42 Dose: Not Given Documented by: Nitrofurantoin Macrocrystals (Macrobid) 100 mg PO BID [facility] Stop: 06/30/20 21:01 Last Admin: 06/30/20 20:42 Dose: 100 mg Documented by: Ondansetron HCl (Zofran) 4 mg IVPUSH ONETIME ONE Stop: 06/27/20 14:18 Last Admin: 06/27/20 14:38 Dose: 4 mg Documented by: Ondansetron HCl (Zofran) 4 mg IVPUSH Q8H [facility] Stop: 06/28/20 02:16 Last Admin: 06/28/20 04:12 Dose: 4 mg Documented by: Acebutolol 200 Mg 200 each PO DAILY [facility] Last Admin: 06/29/20 09:06 Dose: Not Given Documented by: Acebutolol 200 Mg 0 each PO DAILY [facility] Last Admin: 07/05/20 08:35 Dose: 1 each Documented by: Rivaroxaban (Xarelto) 15 mg PO BID [facility] Last Admin: 07/03/20 15:20 Dose: Not Given Documented by: Rivaroxaban (Xarelto) 20 mg PO DAILY [facility] Last Admin: 07/06/20 08:53 Dose: 20 mg Documented by: Senna (Senna) 8.6 mg PO DAILY [facility] Last Admin: 07/02/20 08:50 Dose: 8.6 mg Documented by: Sodium Chloride (Saline Flush) 10 ml FLUSH ASDIRECTED PRN PRN Reason: Keep Vein Open Last Admin: 06/27/20 15:36 Dose: 10 ml Documented by: Sepsis Event Note - Evaluation Sepsis Screening Result: No Definite Risk - Focused Exam Vital Signs: Vital Signs Temp Resp BP BP Pulse Ox Pulse Ox 07/06/20 12:30 91 L 07/06/20 12:00 97.5 F 18 124/74 90 L 07/06/20 11:30 92 L 07/06/20 11:00 94 L 07/06/20 10:10 96 07/06/20 10:09 95 07/06/20 09:39 99/87 96 07/06/20 08:52 151/79 H 07/06/20 08:16 92 L 07/06/20 08:00 96.9 F 20 142/100 H 92 L 07/06/20 07:30 93 L 07/06/20 04:00 97.8 F 16 165/88 H 94 L - Problem List & Annotations (1) Acute hypoxemic respiratory failure due to COVID-19 SNOMED Code(s): 992929680 Code(s): U07.1 - COVID-19; J96.01 - ACUTE RESPIRATORY FAILURE WITH HYPOXIA Status: Acute Current Visit: Yes (2) Asthma SNOMED Code(s): 160642715 Code(s): J45.909 - UNSPECIFIED ASTHMA, UNCOMPLICATED Status: Acute Current Visit: Yes (3) Chronic back pain SNOMED Code(s): 298830190 Code(s): M54.9 - DORSALGIA, UNSPECIFIED; G89.29 - OTHER CHRONIC PAIN Status: Acute Current Visit: Yes (4) Hypoalbuminemia SNOMED Code(s): 492010363 Code(s): E88.09 - OTH DISORDERS OF PLASMA-PROTEIN METABOLISM, NEC Status: Acute Current Visit: Yes (5) Hyponatremia SNOMED Code(s): 06316108 Code(s): E87.1 - HYPO-OSMOLALITY AND HYPONATREMIA Status: Acute Current Visit: Yes - Problem List Review Problem List Initiated/Reviewed/Updated: Yes - My Orders Last 24 Hours: My Active Orders 07/05/20 21:00 Patient's Own Medication [Ptom] 0 each PO BID 07/06/20 07:29 PT Evaluation and Treatment [CONS] Routine 07/06/20 07:30 OT Evaluation and Treatment [CONS] Routine - Assessment Assessment:: 06/27/20 - Worsening fatigue with malaise and productive cough - Daughter whom she sees regularly was just diagnosed with COVID - History of recurrent pneumonia and asthma - VS on admission : 141/61 (87), 72x', RR 25x', 97.2, 76% on RA - Not on and has never been on O2 at home - Labs on admission: - WBC 10.04 - BMP: Na 127, K 3.6, Cl 91, CO2 32, GFR 60 - DD: 0.49/Ferritin 505/ LDH 338/ ProBNP 3,684/ CRP 6.2 - ABGs: 7.44/44.3/88/29.4/96.5 on 4L NC - Crackles on left base on physical exam and patient in obvious respiratory distress - Worsening hypoxemia + decreased mobility in the past week--> will r/o PE - Has not been able to tolerate PO intake in 5 days - Diagnosed with UTI recently and started on 7 day antibiotic course - Still having symptoms although these are improving - Has been taking ATBs - Asthma controlled, never been intubated and doesn't recall last exacerbation PLAN - Start Remdesivir, to complete 5 days - Start Dexamethasone, to complete 10 days - Start Tocilizumab in the morning - CTA chest - NS @ 125ml/hr x 1 bag - Replace magnesium with 2g IV MgSO4 - Replace 20mEq IV KCl - Repeat UA with culture if needed - Continue home medication once available - Request records from Dr. Antoine' office for urine culture results - Request records from [facility] - Prealbumin level - Vitamin levels Patient will be admitted to the regular medical floor on oxygen supplementation, will be started on Remdesivir and Dexamethasone with repeat labs in AM 06/28/20 Around midnight has to increase NC to 7LPM--> 2hr later to 12LPM-->3AM increased to 15 without change in oxygenation --> placed on hi flow CT negative for PE VS trend - BP 110-148/48-80 - Tmax 100.2 - HR 79-84 - SatO2 > 75% Lab results - Platelets down from 129 to 109 - DD up from 0.68 to 1.03 - Na up from 130 to 133 - K down from 3.6 to 3.2 - Ca down from 8.6 to 7.5 - PO4 down from 2.6 to 2.3 - Mg down from 1..7 to 1.5 - Ferritin up from 323 to 325 - LDH up from 294 to 308 - CRP down from 19.5 to 18 - ABGs overnight : #1- 7.38/33.7/58/19/88---> #2- 7.41/31.8/66/19.9/92.4 PLAN - Continue Remdesivir and Dexamethasone day 2 - Start Tocilizumab today - Start convalescent plasma - Transfer to ICU and place on high flow oxygen - D/C IVF - Replace magnesium, K and PO4 with 4g IV MgSO4, 30mMol of KPO4 and 30mEq of KCl - Restart Macrobid - Continue home inhalers - Dietary consult - Start nutritional supplement 06/29/20 Continues to require high flow oxygen at 40L with 80% FiO2 Receive 2u of convalescent plasma and 2 doses of Actemra Requiring stand by assist to commode Diet with 8oz ensure with breakfast and dinner and high protein Jello with lunch--> eating about 50-85% VS trends - MAP 77-90 - Tmax 98.1 - HR 70-85 - SatO2 > 89% Intake and output - UO 1,795 - 24h balance +402 New lab results - Platelets up from 109 to 124 - DD up from 1.03 to 1.52 - Na up from 133 to 136 - K up from 3.2 to 3.7 - PO4 up from 2.3 to 2.6 - Mg up from 1.5 to 2.5 - Ferritin up from 352 to 376 - LDH up from 308 to 408 - CRP down from 18 to 17.1 - BNP up from 921 to 1,330 PLAN - Continue Remdesivir and Dexamethasone day 3 - Change dexamethasone to PO - Continue high flow O2 - Continue Tessalon Perles and guaifenesin - Restart Macrobid - Repeat UA with culture if needed - Request records from Dr. Antoine' office for urine culture results - Continue Dulera - Continue acebutolol, losartan and amlodipine - PRN Hydralazine - Dietary consult - Continue nutritional supplements - Continue Ropinirole 06/30/20 VS trends - BP 128-133/69-91 - Tmax 97.7 - HR 72-82 - SatO2 > 86% Intake and output - UO 2,055 - 24h balance -735 New lab results - Na down from 136 to 135 - K up from 3.7 to 4 - PO4 down from 2.6 to 2.4 - Mg down from 2.5 to 2 - Ferritin down from 376 to 371 - LDH up from 408 to 501 - CK up from 193 to 408 - CRP down from 17.1 to 8.1 - BNP up from 1330 to 1521 - Procalcitonin negative x 2 PLAN - Continue Remdesivir day 4 and Dexamethasone day 3 - Transition dexamethasone to PO - Continue high flow O2 - Continue Tessalon Perles and guaifenesin - Repeat COVID labs in AM - Continue Macrobid, last dose - Continue Dulera - Continue acebutolol, losartan and amlodipine - PRN Hydralazine - Continue nutritional supplements - Continue home PRN Oxycodone - Scheduled Senna BID - Continue Ropinirole Patient will remain the ICU for hi flow oxygen and strict isolation, continue current treatment. 07/01/20 Patient's oxygen requirements in past 24 h - 80% at 8AM changed to 75% changed to 60% at 4PM Eating about 50-80% of meals On 8oz ensure with breakfast and dinner, and high protein jello with lunch Physical exam significantly improved crackles on L base VS trends - MAP 85-108 - Tmax 97.7 - HR 66-86 - SatO2 > 93% Intake and output - UO 1,780 - 24h balance -460 - Balance since admission +1,465 New lab results - Plt up from 155 to 190 - DD up from 1.74 yo 2.06 - Na down from 135 to 134 - PO4 stable at 2.4 - Magnesium down from 2 to 1.8 - Ferritin down from 371 to 358 - LDH down from PLAN - Continue Remdesivir day 5 and Dexamethasone day 4 - New Actemra dose today - 1u convalescent plasma today - Continue high flow O2 - Continue Tessalon Perles and guaifenesin - Repeat COVID labs in AM - Start Vitamin C for 10 days - Up to chair as much as possible - Continue Dulera - Continue acebutolol, losartan and amlodipine - PRN Hydralazine - Continue nutritional supplements - Continue home PRN Oxycodone - Scheduled Senna BID - Restart home Colace - Continue Ropinirole 07/02/20 Completed Remdesivir 5 day course yesterday Has tolerated weaning of FiO2 well Last BM 06/27 VS trends - [id number]/72-91 - Tmax 98 - HR 62-85 - SatO2 > 85% Intake and output - UO 2,120 - 24h balance +360 - Balance since admission +1,825 New lab results - Na down from 134 to 133 - PO4 down from 2.4 to 2.3 - Mag up from 1.8 to 1.9 - Ferritin down from 358 to 313 - LDH down from 488 to 419 - CK down from 195 to 97 - CRP down from 4.9 to 3.1 - BNP down from 1002 to 639 PLAN - Continue Dexamethasone day 5 - Continue high flow O2 taper - Continue Tessalon Perles and guaifenesin - Repeat COVID labs in AM - Continue Vitamin C for 10 days, day 2 - Up to chair as much as possible - Continue Dulera - Request records from [facility] - Continue acebutolol, losartan and amlodipine - PRN Hydralazine - Dietary follow up - Continue nutritional supplements - Continue home PRN Oxycodone - Scheduled Colace - Lactulose q6h until BM then discontinue - Restart home Colace - Continue Ropinirole 07/03/20 O2 requirements have not increase, remains on high flow 35L at 55% Still having end expiratory wheezing but no crackles VS trends - BP 105-146/59-89 - Tmax 97.5 - HR 63-91 - SatO2 > 85% Intake and output - UO 2,650 - 24h balance +897 - Balance since admission +2,837 New lab results - WBC up from 9.83-11.36, 0 bands - D-dimer up from 2-2.25 - Sodium up from 133 234 - GFR stable at greater than 60 - Phosphorus up from 2.3-2.4 - Magnesium down from 1.9-1.8 - Ferritin down from 313-277 - LDH down from 491-437 - CRP down from 3.1-2 07/04/2020 Generally much better. Decreasing respiratory support. Currently on room air with high flow nasal cannula at 35 L Blood pressure adequately controlled WBC 11 D-dimer slightly up at 2.39 CRP down to 1.4 proBNP 1030, no significant change from yesterday but down from a few days ago. Remaining lab work not significantly abnormal 07/05/2020 Patient had another episode of atrial fibrillation with RVR and spontaneously converted back to sinus rhythm. She was placed on Cardizem drip which was stopped this morning. Anticoagulated with Xarelto Continues a slow and steady recovery. Blood pressure well controlled 2-1/2 kg weight loss over 24 hours Decreased O2 supplementation to 5 L nasal cannula and maintaining oxygen saturations in the low to mid 90s Blood pressure continues adequate control White blood cell count increased slightly to 13.5, likely steroid effect Gram-negative coccobacilli from sputum culture sent to [facility] reference laboratory for further identification testing D-dimer down to 1.28, CRP 1.2 07/06/2020 Patient is generally feeling much better. No further episodes of atrial fibrillation overnight. Blood pressure and heart rate well controlled on increase of acebutolol from 200 mg in the morning to twice daily. Weaned down to 2 L nasal cannula with pulse ox in the low 90s Weight is down another 1.7 kg from yesterday. - Plan Plan:: Acute hypoxemic respiratory failure due to COVID-19 Metabolic alkalosis Lymphopenia associated with COVID-19 - Continue Dexamethasone day 9 - Continue to taper O2 - Continue Tessalon Perles and guaifenesin - Repeat CBC, CMP, magnesium, d-dimer, CRP - Continue Vitamin C for day 04/07 - Up to chair as much as possible 2 episodes of atrial fibrillation with RVR -resolved Converted to sinus rhythm spontaneously yesterday morning acebutolol to 200 twice daily for rate control Echocardiogram canceled. Recommend follow-up with patient observation assistant at discharge. Asthma - Continue Dulera - PRN Albuterol Hypertension - Continue acebutolol, losartan and amlodipine - PRN Hydralazine Hypoalbuminemia - Dietary follow up - Continue nutritional supplements Chronic back pain - Continue home PRN Oxycodone Chronic constipation - Scheduled Colace Restless leg syndrome - Continue Ropinirole Intractable nausea and vomiting, resolved Acute respiratory alkalosis, resolved Hypochloremic alkalosis, resolved Hyponatremia/Hypomagnesemia/Hypochloremia/Hypokalemia, resolved UTI, completed treatment Mitral valve prolapse PROPHYLAXIS DVT- Lovenox GI- home PPI CODE STATUS: FULL CODE DISPOSITION: Patient will remain the ICU for hi flow oxygen and strict isolation, continue current treatment. Will require hospital stay greater than 96 hours due to requirement of prolonged treatment regimen and need for O2 supplementation for COVID infection.
[2020-07-06] MEDS: Famotidine 20 MG Tab PO SCH (20:42)
[2020-07-06] MEDS: oxyCODONE 5 MG Tab PO PRN (20:44)
[2020-07-06] MEDS: Melatonin 3 MG Tab PO PRN (20:46)
[2020-07-06] MEDS: rOPINIRole 1 MG Tab PO PRN (20:48)
[2020-07-07] MEDS: Ascorbic Acid 500 MG Tab PO SCH ×5 (01:10→21:27)
[2020-07-07] MEDS: Acetaminophen 325 MG Tab PO PRN (01:10)
[2020-07-07] MEDS: Pantoprazole 40 MG Tab.CR PO SCH (06:00)
[2020-07-07 07:53] VITALS: PULSE 69
[2020-07-07] MEDS: guaiFENesin 100 MG/5 ML Soln 10 ML UD Cup PO SCH ×3 (08:00→21:27)
[2020-07-07] MEDS: Polyethylene Glycol 3350 Powder 17 GM Packet PO PRN (08:00)
[2020-07-07] MEDS: amLODIPine 2.5 MG Tab PO SCH (08:00)
[2020-07-07] MEDS: Benzonatate 100 MG Cap PO SCH ×3 (08:00→21:27)
[2020-07-07] MEDS: Niacin 500 MG Tab.ER PO SCH (08:01)
[2020-07-07] MEDS: Dexamethasone 4 MG Tab PO SCH (08:01)
[2020-07-07] MEDS: Formoterol/Mometasone 200-5 MCG 8.8 GM Inhaler IH SCH ×2 (08:01→20:23)
[2020-07-07] MEDS: Rivaroxaban 10 MG Tab PO SCH (08:01)
[2020-07-07] MEDS: Losartan 100 MG Tab PO SCH (08:01)
[2020-07-07] MEDS: ACEBUTOLOL 200 MG PO SCH ×2 (08:02→21:28)
[2020-07-07] MEDS: prednisoLONE Acetate 1% Ophth Susp 5 ML Bottle EYELF SCH ×3 (08:02→21:28)
--- NOTE | 2020-07-07 13:44 | PCM.PN ---
- General Info Date of Service: 07/07/20 Admission Dx/Problem (Free Text): Respiratory failure secondary to COVID 19 Subjective Update: Patient continues to improve. Oxygen requirements also continued to improve. Patient is down to 1 L and saturations are in the mid 90s at rest, but do drop into the 80s with any activity. Appetite is good but she still has not had a bowel movement since the fourth. She did have one episode of sinus tachycardia with multiple PACs last night. It resolved spontaneously. Functional Status: Reports: Pain Controlled - Review of Systems General: Reports: No Symptoms HEENT: Reports: No Symptoms Pulmonary: Reports: No Symptoms Cardiovascular: Reports: No Symptoms Gastrointestinal: Reports: No Symptoms Musculoskeletal: Reports: No Symptoms - Patient Data Vitals - Most Recent: Last Vital Signs Temp 97.0 F 07/07/20 07:52 Pulse 69 07/07/20 07:52 Resp 19 07/07/20 07:52 BP 159/91 H 07/07/20 08:01 Pulse Ox 95 07/07/20 08:06 Weight - Most Recent: 62.5 kg I&O - Last 24 Hours: Intake & Output 07/06/20 07/07/20 07/07/20 22:59 06:59 14:59 Intake Total 1320 200 Output Total 875 625 500 Balance 445 -425 -500 Lab Results Last 24 Hours: Laboratory Results - last 24 hr 07/07/20 07/07/20 07/07/20 Range/Units 04:24 04:24 04:24 WBC 12.52 H (3.98-10.04) K/mm3 RBC 4.04 (3.98-5.22) M/mm3 Hgb 12.8 D (11.2-15.7) gm/dl Hct 36.3 (34.1-44.9) % MCV 89.9 (79.4-94.8) fl MCH 31.7 (25.6-32.2) pg MCHC 35.3 (32.2-35.5) g/dl RDW Std Deviation 45.1 (36.4-46.3) fL Plt Count 252 (182-369) K/mm3 MPV 9.3 L (9.4-12.3) fl Neutrophils % (Manual) 78 H (40-60) % Band Neutrophils % 0 (0-10) % Lymphocytes % (Manual) 7 L (20-40) % Atypical Lymphs % 0 % Monocytes % (Manual) 15 H (2-10) % Eosinophils % (Manual) 0 L (0.7-5.8) % Basophils % (Manual) 0 L (0.1-1.2) Platelet Estimate Adequate RBC Morph Comment Normal D-Dimer, Quantitative 0.78 H (0.19-0.50) mg/L Sodium 136 (136-145) mEq/L Potassium 4.5 (3.5-5.1) mEq/L Chloride 102 (98-107) mEq/L Carbon Dioxide 26 (21-32) mEq/L Anion Gap 12.5 (5-15) BUN 47 H (7-18) mg/dL Creatinine 0.8 (0.55-1.02) mg/dL Est Cr Clr Drug Dosing 50.75 mL/min Estimated GFR (MDRD) > 60 (>60) mL/min BUN/Creatinine Ratio 58.8 H (14-18) Glucose 134 H (83-115) mg/dL Calcium 8.4 L (8.5-10.1) mg/dL Magnesium 2.0 (1.8-2.4) mg/dl Total Bilirubin 0.4 (0.2-1.0) mg/dL AST 14 L (15-37) U/L ALT 35 (14-59) U/L Alkaline Phosphatase 36 L (46-116) U/L C-Reactive Protein 0.5 (<1.0) mg/dL Total Protein 5.1 L (6.4-8.2) g/dl Albumin 2.3 L (3.4-5.0) g/dl Globulin 2.8 gm/dL Albumin/Globulin Ratio 0.8 L (1-2) Jose Results Last 24 Hours: Microbiology 06/27/20 22:05 Gram Stain - Final Sputum - Induced Sputum Culture - Preliminary Gram Negative Coccobacilli Haemophilus Parainfluenzae Iii Med Orders - Current: Current Medications Acetaminophen (Tylenol) 650 mg PO Q4H PRN PRN Reason: Pain (Mild 1-3)/fever Last Admin: 07/07/20 01:10 Dose: 650 mg Documented by: Amlodipine Besylate (Norvasc) 2.5 mg PO DAILY [facility] Last Admin: 07/07/20 08:00 Dose: 2.5 mg Documented by: Ascorbic Acid (Vitamin C) 1,500 mg PO Q6H [facility] Last Admin: 07/07/20 07:54 Dose: 1,500 mg Documented by: Benzonatate (Tessalon Perles) 100 mg PO TID [facility] Last Admin: 07/07/20 08:00 Dose: 100 mg Documented by: Famotidine (Pepcid) 20 mg PO BEDTIME [facility] Last Admin: 07/06/20 20:42 Dose: 20 mg Documented by: Guaifenesin (Robitussin) 400 mg PO TID [facility] Last Admin: 07/07/20 08:00 Dose: 400 mg Documented by: Lactated Ringer's (Ringers, Lactated) 500 mls @ 100 mls/hr IV ASDIRECTED [facility] Last Admin: 07/01/20 18:09 Dose: 100 mls/hr Documented by: Diltiazem HCl 100 mg/ Sodium (Chloride) 100 mls @ 5 mls/hr IV TITRATE [facility]; Protocol Last Titration: 07/05/20 08:15 Dose: 0 mg/hr, 0 mls/hr Documented by: Losartan Potassium (Cozaar) 100 mg PO DAILY [facility] Last Admin: 07/07/20 08:01 Dose: 100 mg Documented by: Melatonin (Melatonin) 9 mg PO BEDTIME PRN PRN Reason: Insomnia Last Admin: 07/06/20 20:46 Dose: 9 mg Documented by: Mometasone Furoate/Formoterol Fumar (Dulera 200-5 Mcg) 2 puff IH BID [facility] Last Admin: 07/07/20 08:01 Dose: 2 puff Documented by: Niacin (Niaspan) 250 mg PO DAILY [facility] Last Admin: 07/07/20 08:01 Dose: 250 mg Documented by: Ondansetron HCl (Zofran) 4 mg IVPUSH Q8H PRN PRN Reason: Nausea Last Admin: 06/30/20 16:03 Dose: 4 mg Documented by: Oxycodone HCl (Oxycodone) 5 mg PO DAILY PRN PRN Reason: Pain Last Admin: 07/06/20 20:44 Dose: 5 mg Documented by: Pantoprazole Sodium (Protonix) 40 mg PO DAILY@0700 [facility] Last Admin: 07/07/20 06:00 Dose: 40 mg Documented by: Acebutolol 200 Mg 0 each PO BID [facility] Last Admin: 07/07/20 08:02 Dose: 1 each Documented by: Polyethylene Glycol (Miralax) 17 gm PO DAILY PRN PRN Reason: Constipation Last Admin: 07/07/20 08:00 Dose: 17 gm Documented by: Prednisolone Acetate (Pred Forte 1% Ophth Susp) 0 ml EYELF TID [facility] Last Admin: 07/07/20 08:02 Dose: 1 drop Documented by: Rivaroxaban (Xarelto) 20 mg PO DAILY [facility] Last Admin: 07/07/20 08:01 Dose: 20 mg Documented by: Ropinirole HCl (Requip) 1 - 1.5 mg PO BEDTIME PRN PRN Reason: Restless leg syndrome Last Admin: 07/06/20 20:48 Dose: 1 mg Documented by: Sodium Chloride (Saline Flush) 10 ml FLUSH ONETIME PRN PRN Reason: IV FLUSH Last Admin: 07/06/20 09:03 Dose: 10 ml Documented by: Discontinued Medications Dexamethasone (Dexamethasone) 6 mg IVPUSH DAILY [facility] Last Admin: 06/30/20 08:40 Dose: 6 mg Documented by: Dexamethasone (Dexamethasone) 6 mg PO DAILY [facility] Stop: 07/07/20 09:01 Last Admin: 07/07/20 08:01 Dose: 6 mg Documented by: Diltiazem HCl (Cardizem) 50 mg IVPUSH ONETIME ONE Stop: 07/03/20 14:09 Last Admin: 07/03/20 14:31 Dose: Not Given Documented by: Diltiazem HCl (Cardizem) 17 mg 0.25 mg/kg (17 mg) IVPUSH NOW ONE Stop: 07/03/20 14:21 Last Admin: 07/03/20 14:25 Dose: 17 mg Documented by: Diltiazem HCl (Cardizem) 24 mg 0.35 mg/kg (24 mg) IVPUSH NOW ONE Stop: 07/03/20 15:32 Last Admin: 07/03/20 15:52 Dose: 24 mg Documented by: Diltiazem HCl (Cardizem) 24 mg 0.35 mg/kg (24 mg) IV NOW ONE Stop: 07/03/20 15:49 Last Admin: 07/03/20 16:39 Dose: Not Given Documented by: Docusate Sodium (Colace) 200 mg PO BID [facility] Last Admin: 07/02/20 08:47 Dose: 200 mg Documented by: Enoxaparin Sodium (Lovenox) 40 mg SUBCUT DAILY [facility] Last Admin: 07/03/20 08:29 Dose: 40 mg Documented by: Guaifenesin (Robitussin) 400 mg PO Q8H [facility] Last Admin: 06/30/20 10:11 Dose: 400 mg Documented by: Sodium Chloride (Normal Saline) 1,000 mls @ 1,000 mls/hr IV .BOLUS [facility] Last Admin: 06/27/20 20:38 Dose: 1,000 mls/hr Documented by: Sodium Chloride (Normal Saline) 1,000 mls @ 125 mls/hr IV ASDIRECTED [facility] Stop: 06/28/20 02:14 Last Admin: 06/28/20 04:17 Dose: 125 mls/hr Documented by: REMDESIVIR (EUA) 200 mg/ (Sodium Chloride) 250 mls @ 250 mls/hr IV ONETIME STA Stop: 06/27/20 18:04 Last Admin: 06/28/20 03:07 Dose: Not Given Documented by: REMDESIVIR (EUA) 100 mg/ (Sodium Chloride) 100 mls @ 100 mls/hr IV Q24H [facility] Stop: 07/01/20 21:59 Last Admin: 07/01/20 20:48 Dose: 100 mls/hr Documented by: Sodium Chloride (Normal Saline) 100 mls @ 75 mls/hr IV ASDIRECTED [facility] Stop: 06/28/20 09:50 Last Admin: 06/27/20 20:15 Dose: 75 mls/hr Documented by: REMDESIVIR (EUA) 200 mg/ (Sodium Chloride) 250 mls @ 250 mls/hr IV ONETIME STA Stop: 06/27/20 21:02 Last Admin: 06/28/20 16:21 Dose: Not Given Documented by: REMDESIVIR (EUA) 200 mg/ (Sodium Chloride) 250 mls @ 250 mls/hr IV ONETIME STA Stop: 06/27/20 20:59 Last Admin: 06/27/20 20:59 Dose: 250 mls/hr Documented by: Tocilizumab 400 mg/ Sodium (Chloride) 100 mls @ 100 mls/hr IV Q12H [facility] Stop: 06/28/20 23:59 Last Admin: 06/28/20 22:00 Dose: 100 mls/hr Documented by: Potassium Phosphate 30 mmole/ (Sodium Chloride) 510 mls @ 102 mls/hr IV ONETIME ONE Stop: 06/28/20 16:59 Last Admin: 06/28/20 11:18 Dose: 102 mls/hr Documented by: Potassium Chloride 10 meq/ (Premix) 100 mls @ 100 mls/hr IV Q1H [facility] Stop: 06/28/20 19:59 Last Admin: 06/28/20 18:58 Dose: 100 mls/hr Documented by: Magnesium Sulfate 4 gm/ Premix 50 mls @ 12.5 mls/hr IV ONETIME ONE Stop: 06/28/20 20:59 Last Admin: 06/28/20 16:49 Dose: 12.5 mls/hr Documented by: Sodium Chloride (Normal Saline) Confirm Administered Dose 100 mls @ as directed .ROUTE .STK-MED ONE Stop: 06/28/20 16:38 Last Admin: 06/28/20 17:34 Dose: Not Given Documented by: Sodium Chloride (Normal Saline) 250 mls @ 10 mls/hr IV ASDIRECTED [facility] Stop: 06/28/20 23:00 Last Admin: 06/28/20 17:46 Dose: 10 mls/hr Documented by: Tocilizumab 400 mg/ Sodium (Chloride) 100 mls @ 100 mls/hr IV ONETIME ONE Stop: 07/01/20 12:59 Last Admin: 07/01/20 12:38 Dose: 100 mls/hr Documented by: Magnesium Sulfate 2 gm/ Premix 50 mls @ 50 mls/hr IV Q1H [facility] Stop: 07/01/20 15:29 Last Admin: 07/01/20 14:43 Dose: 50 mls/hr Documented by: Potassium Chloride 10 meq/ (Premix) 100 mls @ 100 mls/hr IV Q1H [facility] Stop: 07/01/20 18:29 Last Admin: 07/01/20 17:59 Dose: 100 mls/hr Documented by: Sodium Chloride (Normal Saline) Confirm Administered Dose 250 mls @ as directed .ROUTE .STK-MED ONE Stop: 07/01/20 18:37 Last Admin: 07/01/20 20:52 Dose: 50 mls/hr Documented by: Iopamidol (Isovue-370 (76%)) 100 ml IVPUSH ONETIME ONE Stop: 06/27/20 19:16 Last Admin: 06/27/20 20:00 Dose: 100 ml Documented by: Lactulose (Cephulac) 20 gm PO Q6H [facility] Last Admin: 07/02/20 19:42 Dose: Not Given Documented by: Nitrofurantoin Macrocrystals (Macrobid) 100 mg PO BID [facility] Stop: 06/30/20 21:01 Last Admin: 06/30/20 20:42 Dose: 100 mg Documented by: Ondansetron HCl (Zofran) 4 mg IVPUSH ONETIME ONE Stop: 06/27/20 14:18 Last Admin: 06/27/20 14:38 Dose: 4 mg Documented by: Ondansetron HCl (Zofran) 4 mg IVPUSH Q8H [facility] Stop: 06/28/20 02:16 Last Admin: 06/28/20 04:12 Dose: 4 mg Documented by: Acebutolol 200 Mg 200 each PO DAILY [facility] Last Admin: 06/29/20 09:06 Dose: Not Given Documented by: Acebutolol 200 Mg 0 each PO DAILY [facility] Last Admin: 07/05/20 08:35 Dose: 1 each Documented by: Rivaroxaban (Xarelto) 15 mg PO BID [facility] Last Admin: 07/03/20 15:20 Dose: Not Given Documented by: Rivaroxaban (Xarelto) 20 mg PO DAILY [facility] Last Admin: 07/06/20 08:53 Dose: 20 mg Documented by: Senna (Senna) 8.6 mg PO DAILY [facility] Last Admin: 07/02/20 08:50 Dose: 8.6 mg Documented by: Sodium Chloride (Saline Flush) 10 ml FLUSH ASDIRECTED PRN PRN Reason: Keep Vein Open Last Admin: 06/27/20 15:36 Dose: 10 ml Documented by: - Exam Quality Assessment: Supplemental Oxygen General: Alert, Oriented HEENT: Pupils Equal, Mucous Membr. Moist/Marvel Neck: Supple Lungs: Clear to Auscultation, Normal Respiratory Effort Cardiovascular: Regular Rate, Regular Rhythm GI/Abdominal Exam: Normal Bowel Sounds, Soft, Non-Tender, No Organomegaly, No Distention Extremities: Normal Inspection, Normal Range of Motion, Non-Tender, No Pedal Edema, Normal Capillary Refill Skin: Warm, Dry, Intact Neurological: No New Focal Deficit Psy/Mental Status: Alert, Normal Affect, Normal Mood Sepsis Event Note - Evaluation Sepsis Screening Result: No Definite Risk - Focused Exam Vital Signs: Vital Signs Temp Pulse Resp BP BP Pulse Ox Pulse Ox 07/07/20 08:06 95 07/07/20 08:01 159/91 H 07/07/20 08:00 159/91 H 07/07/20 07:52 97.0 F 69 19 159/91 H 93 L 07/07/20 06:37 92 L 07/07/20 03:58 96.8 F L 64 17 141/70 H 97 - Problem List & Annotations (1) Acute hypoxemic respiratory failure due to COVID-19 SNOMED Code(s): 044447387 Code(s): U07.1 - COVID-19; J96.01 - ACUTE RESPIRATORY FAILURE WITH HYPOXIA Status: Acute Current Visit: Yes (2) Asthma SNOMED Code(s): 320640273 Code(s): J45.909 - UNSPECIFIED ASTHMA, UNCOMPLICATED Status: Acute Current Visit: Yes (3) Chronic back pain SNOMED Code(s): 851883885 Code(s): M54.9 - DORSALGIA, UNSPECIFIED; G89.29 - OTHER CHRONIC PAIN Status: Acute Current Visit: Yes (4) Hypoalbuminemia SNOMED Code(s): 306162073 Code(s): E88.09 - OTH DISORDERS OF PLASMA-PROTEIN METABOLISM, NEC Status: Acute Current Visit: Yes (5) Hyponatremia SNOMED Code(s): 98339829 Code(s): E87.1 - HYPO-OSMOLALITY AND HYPONATREMIA Status: Acute Current Visit: Yes - Problem List Review Problem List Initiated/Reviewed/Updated: Yes - My Orders Last 24 Hours: My Active Orders 07/07/20 07:28 Patient Status [ADT] Routine - Assessment Assessment:: 06/27/20 - Worsening fatigue with malaise and productive cough - Daughter whom she sees regularly was just diagnosed with COVID - History of recurrent pneumonia and asthma - VS on admission : 141/61 (87), 72x', RR 25x', 97.2, 76% on RA - Not on and has never been on O2 at home - Labs on admission: - WBC 10.04 - BMP: Na 127, K 3.6, Cl 91, CO2 32, GFR 60 - DD: 0.49/Ferritin 505/ LDH 338/ ProBNP 3,684/ CRP 6.2 - ABGs: 7.44/44.3/88/29.4/96.5 on 4L NC - Crackles on left base on physical exam and patient in obvious respiratory distress - Worsening hypoxemia + decreased mobility in the past week--> will r/o PE - Has not been able to tolerate PO intake in 5 days - Diagnosed with UTI recently and started on 7 day antibiotic course - Still having symptoms although these are improving - Has been taking ATBs - Asthma controlled, never been intubated and doesn't recall last exacerbation PLAN - Start Remdesivir, to complete 5 days - Start Dexamethasone, to complete 10 days - Start Tocilizumab in the morning - CTA chest - NS @ 125ml/hr x 1 bag - Replace magnesium with 2g IV MgSO4 - Replace 20mEq IV KCl - Repeat UA with culture if needed - Continue home medication once available - Request records from Dr. Antoine' office for urine culture results - Request records from [place] [facility] - Prealbumin level - Vitamin levels Patient will be admitted to the regular medical floor on oxygen supplementation, will be started on Remdesivir and Dexamethasone with repeat labs in AM 06/28/20 Around midnight has to increase NC to 7LPM--> 2hr later to 12LPM-->3AM increased to 15 without change in oxygenation --> placed on hi flow CT negative for PE VS trend - BP 110-148/48-80 - Tmax 100.2 - HR 79-84 - SatO2 > 75% Lab results - Platelets down from 129 to 109 - DD up from 0.68 to 1.03 - Na up from 130 to 133 - K down from 3.6 to 3.2 - Ca down from 8.6 to 7.5 - PO4 down from 2.6 to 2.3 - Mg down from 1..7 to 1.5 - Ferritin up from 323 to 325 - LDH up from 294 to 308 - CRP down from 19.5 to 18 - ABGs overnight : #1- 7.38/33.7/58/19/88---> #2- 7.41/31.8/66/19.9/92.4 PLAN - Continue Remdesivir and Dexamethasone day 2 - Start Tocilizumab today - Start convalescent plasma - Transfer to ICU and place on high flow oxygen - D/C IVF - Replace magnesium, K and PO4 with 4g IV MgSO4, 30mMol of KPO4 and 30mEq of KCl - Restart Macrobid - Continue home inhalers - Dietary consult - Start nutritional supplement 06/29/20 Continues to require high flow oxygen at 40L with 80% FiO2 Receive 2u of convalescent plasma and 2 doses of Actemra Requiring stand by assist to commode Diet with 8oz ensure with breakfast and dinner and high protein Jello with lunch--> eating about 50-85% VS trends - MAP 77-90 - Tmax 98.1 - HR 70-85 - SatO2 > 89% Intake and output - UO 1,795 - 24h balance +402 New lab results - Platelets up from 109 to 124 - DD up from 1.03 to 1.52 - Na up from 133 to 136 - K up from 3.2 to 3.7 - PO4 up from 2.3 to 2.6 - Mg up from 1.5 to 2.5 - Ferritin up from 352 to 376 - LDH up from 308 to 408 - CRP down from 18 to 17.1 - BNP up from 921 to 1,330 PLAN - Continue Remdesivir and Dexamethasone day 3 - Change dexamethasone to PO - Continue high flow O2 - Continue Tessalon Perles and guaifenesin - Restart Macrobid - Repeat UA with culture if needed - Request records from Dr. Antoine' office for urine culture results - Continue Dulera - Continue acebutolol, losartan and amlodipine - PRN Hydralazine - Dietary consult - Continue nutritional supplements - Continue Ropinirole 06/30/20 VS trends - BP 128-133/69-91 - Tmax 97.7 - HR 72-82 - SatO2 > 86% Intake and output - UO 2,055 - 24h balance -735 New lab results - Na down from 136 to 135 - K up from 3.7 to 4 - PO4 down from 2.6 to 2.4 - Mg down from 2.5 to 2 - Ferritin down from 376 to 371 - LDH up from 408 to 501 - CK up from 193 to 408 - CRP down from 17.1 to 8.1 - BNP up from 1330 to 1521 - Procalcitonin negative x 2 PLAN - Continue Remdesivir day 4 and Dexamethasone day 3 - Transition dexamethasone to PO - Continue high flow O2 - Continue Tessalon Perles and guaifenesin - Repeat COVID labs in AM - Continue Macrobid, last dose - Continue Dulera - Continue acebutolol, losartan and amlodipine - PRN Hydralazine - Continue nutritional supplements - Continue home PRN Oxycodone - Scheduled Senna BID - Continue Ropinirole Patient will remain the ICU for hi flow oxygen and strict isolation, continue current treatment. 07/01/20 Patient's oxygen requirements in past 24 h - 80% at 8AM changed to 75% changed to 60% at 4PM Eating about 50-80% of meals On 8oz ensure with breakfast and dinner, and high protein jello with lunch Physical exam significantly improved crackles on L base VS trends - MAP 85-108 - Tmax 97.7 - HR 66-86 - SatO2 > 93% Intake and output - UO 1,780 - 24h balance -460 - Balance since admission +1,465 New lab results - Plt up from 155 to 190 - DD up from 1.74 yo 2.06 - Na down from 135 to 134 - PO4 stable at 2.4 - Magnesium down from 2 to 1.8 - Ferritin down from 371 to 358 - LDH down from PLAN - Continue Remdesivir day 5 and Dexamethasone day 4 - New Actemra dose today - 1u convalescent plasma today - Continue high flow O2 - Continue Tessalon Perles and guaifenesin - Repeat COVID labs in AM - Start Vitamin C for 10 days - Up to chair as much as possible - Continue Dulera - Continue acebutolol, losartan and amlodipine - PRN Hydralazine - Continue nutritional supplements - Continue home PRN Oxycodone - Scheduled Senna BID - Restart home Colace - Continue Ropinirole 07/02/20 Completed Remdesivir 5 day course yesterday Has tolerated weaning of FiO2 well Last BM 06/27 VS trends - ER900-639/72-91 - Tmax 98 - HR 62-85 - SatO2 > 85% Intake and output - UO 2,120 - 24h balance +360 - Balance since admission +1,825 New lab results - Na down from 134 to 133 - PO4 down from 2.4 to 2.3 - Mag up from 1.8 to 1.9 - Ferritin down from 358 to 313 - LDH down from 488 to 419 - CK down from 195 to 97 - CRP down from 4.9 to 3.1 - BNP down from 1002 to 639 PLAN - Continue Dexamethasone day 5 - Continue high flow O2 taper - Continue Tessalon Perles and guaifenesin - Repeat COVID labs in AM - Continue Vitamin C for 10 days, day 2 - Up to chair as much as possible - Continue Dulera - Request records from [place] [facility] - Continue acebutolol, losartan and amlodipine - PRN Hydralazine - Dietary follow up - Continue nutritional supplements - Continue home PRN Oxycodone - Scheduled Colace - Lactulose q6h until BM then discontinue - Restart home Colace - Continue Ropinirole 07/03/20 O2 requirements have not increase, remains on high flow 35L at 55% Still having end expiratory wheezing but no crackles VS trends - BP 105-146/59-89 - Tmax 97.5 - HR 63-91 - SatO2 > 85% Intake and output - UO 2,650 - 24h balance +897 - Balance since admission +2,837 New lab results - WBC up from 9.83-11.36, 0 bands - D-dimer up from 2-2.25 - Sodium up from 133 234 - GFR stable at greater than 60 - Phosphorus up from 2.3-2.4 - Magnesium down from 1.9-1.8 - Ferritin down from 313-277 - LDH down from 491-437 - CRP down from 3.1-2 07/04/2020 Generally much better. Decreasing respiratory support. Currently on room air with high flow nasal cannula at 35 L Blood pressure adequately controlled WBC 11 D-dimer slightly up at 2.39 CRP down to 1.4 proBNP 1030, no significant change from yesterday but down from a few days ago. Remaining lab work not significantly abnormal 07/05/2020 Patient had another episode of atrial fibrillation with RVR and spontaneously converted back to sinus rhythm. She was placed on Cardizem drip which was stopped this morning. Anticoagulated with Xarelto Continues a slow and steady recovery. Blood pressure well controlled 2-1/2 kg weight loss over 24 hours Decreased O2 supplementation to 5 L nasal cannula and maintaining oxygen saturations in the low to mid 90s Blood pressure continues adequate control White blood cell count increased slightly to 13.5, likely steroid effect Gram-negative coccobacilli from sputum culture sent to [facility] reference laboratory for further identification testing D-dimer down to 1.28, CRP 1.2 07/06/2020 Patient is generally feeling much better. No further episodes of atrial fibrillation overnight. Blood pressure and heart rate well controlled on increase of acebutolol from 200 mg in the morning to twice daily. Weaned down to 2 L nasal cannula with pulse ox in the low 90s Weight is down another 1.7 kg from yesterday. 07/07/2020 Patient is almost at baseline. She is on only 1 L at rest and I anticipate she will be off oxygen by tomorrow. Patient can be discharged when off oxygen. Lab show a normalized CRP and d-dimer continuing to drop 0.78. Renal function: GFR greater than 60. Sodium 136, hyponatremia resolved, of note BUN has increased during hospitalization from 15 on admission to 47 today. BUN to creatinine ratio was 58.8. This raises the concern of upper GI bleed. Other causes possible are protein catabolism from dexamethasone and prerenal azotemia. Hemoglobin did drop from 14.8-12.8. On admission her hemoglobin was 14.8 but on the second day of admission it was 12.5. Questionable if this is significant or not. Patient has had negative fluid balance since admission of only 361 with approximately 2 kg weight loss. Albumin has also dropped from 3.0-2.3. - Plan Plan:: Acute hypoxemic respiratory failure due to COVID-19 Metabolic alkalosis Lymphopenia associated with COVID-19 -Finished dexamethasone today - Continue to taper O2 - Continue Tessalon Perles and guaifenesin - Repeat CBC, CMP, in the morning - Continue Vitamin C for day 7 - Up to chair as much as possible Increasing BUN and BUN to creatinine ratio -Patient is on Xarelto and a steroid increasing the risk for upper GI bleed. -Dexamethasone can cause protein catabolism, but usually over a longer period of time. -Albumin has dropped -Get Hemoccult stool -Continue pantoprazole in the morning and famotidine in the evening. -Recheck CMP in the morning. 2 episodes of atrial fibrillation with RVR -resolved Converted to sinus rhythm spontaneously yesterday morning acebutolol to 200 twice daily for rate control Echocardiogram canceled. Recommend follow-up with supervisory aide at discharge. Asthma - Continue Dulera - PRN Albuterol Hypertension - Continue acebutolol, losartan and amlodipine - PRN Hydralazine Hypoalbuminemia - Dietary follow up - Continue nutritional supplements Chronic back pain - Continue home PRN Oxycodone Chronic constipation - Scheduled MiraLAX -Suppository today for bowel movement Restless leg syndrome - Continue Ropinirole Intractable nausea and vomiting, resolved Acute respiratory alkalosis, resolved Hypochloremic alkalosis, resolved Hyponatremia/Hypomagnesemia/Hypochloremia/Hypokalemia, resolved UTI, completed treatment Mitral valve prolapse PROPHYLAXIS DVT- Lovenox GI- home PPI CODE STATUS: FULL CODE DISPOSITION: Patient will remain the ICU for hi flow oxygen and strict isolation, continue current treatment. Will require hospital stay greater than 96 hours due to requirement of prolonged treatment regimen and need for O2 supplementation for COVID infection.
[2020-07-07] MEDS ORDERED: Bisacodyl 10 MG Supp RECTAL ONE (15:00)
[2020-07-07] MEDS: oxyCODONE 5 MG Tab PO PRN (21:27)
[2020-07-07] MEDS: Melatonin 3 MG Tab PO PRN (21:27)
[2020-07-07] MEDS: Famotidine 20 MG Tab PO SCH (21:27)
[2020-07-07] MEDS: rOPINIRole 1 MG Tab PO PRN (21:27)
[2020-07-08] MEDS: Ascorbic Acid 500 MG Tab PO SCH ×2 (06:06→07:57)
[2020-07-08] MEDS: Pantoprazole 40 MG Tab.CR PO SCH (06:48)
--- NOTE | 2020-07-08 07:46 | PCM.DCSUM1 ---
Discharge Summary - Hospital Course HPI Initial Comments: This is an 80 year old female with past medical history of asthma who comes to the ED complaining of worsening fatigue, general malaise and chills. As per patient last week she went to [place] with daughter who was tested earlier this week and came back positive. Stated she started getting sick on Sunday with dysuria, generalized aches and pains. At that point she went to see PCP who performed a UA that came back positive and started her on Nitrofurantoin. She was also having aches and pains about a week ago but still had enough energy to get around and was not doing a lot. She has had pneumonia multiple times, so at this point knows her body and knows when it is starting. He oral intake has been declining steadily and later on associated with nausea and vomiting, nasal congestion and productive cough of yellowish sputum since Sunday. Her aches got better but continued to feel fatigued, she also has been unable to keep anything down. Denies any fevers, highest temp recorded at 100.7 last night. Has been using her rescue inhaler twice a day ASSESSMENT - Worsening fatigue with malaise and productive cough - Daughter whom she sees regularly was just diagnosed with COVID - History of recurrent pneumonia and asthma - VS on admission : 141/61 (87), 72x', RR 25x', 97.2, 76% on RA - Not on and has never been on O2 at home - Labs on admission: - WBC 10.04 - BMP: Na 127, K 3.6, Cl 91, CO2 32, GFR 60 - DD: 0.49/Ferritin 505/ LDH 338/ ProBNP 3,684/ CRP 6.2 - ABGs: 7.44/44.3/88/29.4/96.5 on 4L NC - Crackles on left base on physical exam and patient in obvious respiratory distress PLAN Acute hypoxemic respiratory failure due to COVID-19 Acute respiratory alkalosis Metabolic alkalosis Hypochloremic alkalosis Lymphopenia associated with COVID-19 Daughter diagnosed with COVID on Thursday 06/21 Malaise and fatigue started 8 days ago Associated with intractable nausea and vomiting as well as dry cough Worsening hypoxemia + decreased mobility in the past week--> will r/o PE PLAN - Start Remdesivir, to complete 5 days - Start Dexamethasone, to complete 10 days - Start Tocilizumab in the morning - CTA chest Intractable nausea and vomiting Hyponatremia Hypomagnesemia Hypochloremia Has not been able to tolerate PO intake in 5 days Borderline K, will replace PLAN - NS @ 125ml/hr x 1 bag - Replace magnesium with 2g IV MgSO4 - Replace 20mEq IV KCl UTI Diagnosed with UTI recently and started on 7 day antibiotic course Still having symptoms although these are improving Has been taking ATBs PLAN - Repeat UA with culture if needed - Continue home medication once available - Request records from Dr. Antoine' office for urine culture results Asthma Controlled as per patient Never been intubated Does not recall last exacerbation PLAN - Continue home management Mitral valve prolapse No acute issues PLAN - Monitor - Request records from [facility] Hypertension BP on admission 148/80 PLAN - Continue home medications - PRN Hydralazine Hypoalbuminemia BMI 22 Decreased oral intake in the past week or so Weighed 142 on Sunday PLAN - Prealbumin level - Vitamin levels Chronic constipation Last BM today Scheduled Colace at home PLAN - Continue home medication PROPHYLAXIS DVT- Lovenox GI- home PPI CODE STATUS: FULL CODE DISPOSITION: Patient will be admitted to the regular medical floor on oxygen supplementation, will be started on Remdesivir and Dexamethasone with repeat labs in AM SOCIAL: Lives in [place] with Ambulates without assistance Never drinker or smoker PCP is Dr. Antoine - Mortality Measure Prognosis:: Poor Diagnosis: Stroke: No - Discharge Data Discharge Date: 07/08/20 Discharge Disposition: Home, Self-Care 01 Condition: Good - Referral to Home Health Primary Care Physician: Bart Antoine Jr, MD - Discharge Diagnosis/Problem(s) (1) Acute hypoxemic respiratory failure due to COVID-19 SNOMED Code(s): 203395498 ICD Code: U07.1 - COVID-19; J96.01 - ACUTE RESPIRATORY FAILURE WITH HYPOXIA Status: Acute Current Visit: Yes (2) Asthma SNOMED Code(s): 121077724 ICD Code: J45.909 - UNSPECIFIED ASTHMA, UNCOMPLICATED Status: Acute Current Visit: Yes (3) Chronic back pain SNOMED Code(s): 627269120 ICD Code: M54.9 - DORSALGIA, UNSPECIFIED; G89.29 - OTHER CHRONIC PAIN Status: Acute Current Visit: Yes (4) Hypoalbuminemia SNOMED Code(s): 694473265 ICD Code: E88.09 - OTH DISORDERS OF PLASMA-PROTEIN METABOLISM, NEC Status: Acute Current Visit: Yes (5) Hyponatremia SNOMED Code(s): 67416629 ICD Code: E87.1 - HYPO-OSMOLALITY AND HYPONATREMIA Status: Acute Current Visit: Yes - Patient Summary/Data Consults: Consultations 07/06/20 07:29 PT Evaluation and Treatment [CONS] Routine 07/06/20 07:30 OT Evaluation and Treatment [CONS] Routine Hospital Course: Assessment:: 06/27/20 - Worsening fatigue with malaise and productive cough - Daughter whom she sees regularly was just diagnosed with COVID - History of recurrent pneumonia and asthma - VS on admission : 141/61 (87), 72x', RR 25x', 97.2, 76% on RA - Not on and has never been on O2 at home - Labs on admission: - WBC 10.04 - BMP: Na 127, K 3.6, Cl 91, CO2 32, GFR 60 - DD: 0.49/Ferritin 505/ LDH 338/ ProBNP 3,684/ CRP 6.2 - ABGs: 7.44/44.3/88/29.4/96.5 on 4L NC - Crackles on left base on physical exam and patient in obvious respiratory distress - Worsening hypoxemia + decreased mobility in the past week--> will r/o PE - Has not been able to tolerate PO intake in 5 days - Diagnosed with UTI recently and started on 7 day antibiotic course - Still having symptoms although these are improving - Has been taking ATBs - Asthma controlled, never been intubated and doesn't recall last exacerbation PLAN - Start Remdesivir, to complete 5 days - Start Dexamethasone, to complete 10 days - Start Tocilizumab in the morning - CTA chest - NS @ 125ml/hr x 1 bag - Replace magnesium with 2g IV MgSO4 - Replace 20mEq IV KCl - Repeat UA with culture if needed - Continue home medication once available - Request records from Dr. Antoine' office for urine culture results - Request records from [facility] - Prealbumin level - Vitamin levels Patient will be admitted to the regular medical floor on oxygen supplementation, will be started on Remdesivir and Dexamethasone with repeat labs in AM 06/28/20 Around midnight has to increase NC to 7LPM--> 2hr later to 12LPM-->3AM increased to 15 without change in oxygenation --> placed on hi flow CT negative for PE VS trend - BP 110-148/48-80 - Tmax 100.2 - HR 79-84 - SatO2 > 75% Lab results - Platelets down from 129 to 109 - DD up from 0.68 to 1.03 - Na up from 130 to 133 - K down from 3.6 to 3.2 - Ca down from 8.6 to 7.5 - PO4 down from 2.6 to 2.3 - Mg down from 1..7 to 1.5 - Ferritin up from 323 to 325 - LDH up from 294 to 308 - CRP down from 19.5 to 18 - ABGs overnight : #1- 7.38/33.7/58/19/88---> #2- 7.41/31.8/66/19.9/92.4 PLAN - Continue Remdesivir and Dexamethasone day 2 - Start Tocilizumab today - Start convalescent plasma - Transfer to ICU and place on high flow oxygen - D/C IVF - Replace magnesium, K and PO4 with 4g IV MgSO4, 30mMol of KPO4 and 30mEq of KCl - Restart Macrobid - Continue home inhalers - Dietary consult - Start nutritional supplement 06/29/20 Continues to require high flow oxygen at 40L with 80% FiO2 Receive 2u of convalescent plasma and 2 doses of Actemra Requiring stand by assist to commode Diet with 8oz ensure with breakfast and dinner and high protein Jello with lunch--> eating about 50-85% VS trends - MAP 77-90 - Tmax 98.1 - HR 70-85 - SatO2 > 89% Intake and output - UO 1,795 - 24h balance +402 New lab results - Platelets up from 109 to 124 - DD up from 1.03 to 1.52 - Na up from 133 to 136 - K up from 3.2 to 3.7 - PO4 up from 2.3 to 2.6 - Mg up from 1.5 to 2.5 - Ferritin up from 352 to 376 - LDH up from 308 to 408 - CRP down from 18 to 17.1 - BNP up from 921 to 1,330 PLAN - Continue Remdesivir and Dexamethasone day 3 - Change dexamethasone to PO - Continue high flow O2 - Continue Tessalon Perles and guaifenesin - Restart Macrobid - Repeat UA with culture if needed - Request records from Dr. Antoine' office for urine culture results - Continue Dulera - Continue acebutolol, losartan and amlodipine - PRN Hydralazine - Dietary consult - Continue nutritional supplements - Continue Ropinirole 06/30/20 VS trends - BP 128-133/69-91 - Tmax 97.7 - HR 72-82 - SatO2 > 86% Intake and output - UO 2,055 - 24h balance -735 New lab results - Na down from 136 to 135 - K up from 3.7 to 4 - PO4 down from 2.6 to 2.4 - Mg down from 2.5 to 2 - Ferritin down from 376 to 371 - LDH up from 408 to 501 - CK up from 193 to 408 - CRP down from 17.1 to 8.1 - BNP up from 1330 to 1521 - Procalcitonin negative x 2 PLAN - Continue Remdesivir day 4 and Dexamethasone day 3 - Transition dexamethasone to PO - Continue high flow O2 - Continue Tessalon Perles and guaifenesin - Repeat COVID labs in AM - Continue Macrobid, last dose - Continue Dulera - Continue acebutolol, losartan and amlodipine - PRN Hydralazine - Continue nutritional supplements - Continue home PRN Oxycodone - Scheduled Senna BID - Continue Ropinirole Patient will remain the ICU for hi flow oxygen and strict isolation, continue current treatment. 07/01/20 Patient's oxygen requirements in past 24 h - 80% at 8AM changed to 75% changed to 60% at 4PM Eating about 50-80% of meals On 8oz ensure with breakfast and dinner, and high protein jello with lunch Physical exam significantly improved crackles on L base VS trends - MAP 85-108 - Tmax 97.7 - HR 66-86 - SatO2 > 93% Intake and output - UO 1,780 - 24h balance -460 - Balance since admission +1,465 New lab results - Plt up from 155 to 190 - DD up from 1.74 yo 2.06 - Na down from 135 to 134 - PO4 stable at 2.4 - Magnesium down from 2 to 1.8 - Ferritin down from 371 to 358 - LDH down from PLAN - Continue Remdesivir day 5 and Dexamethasone day 4 - New Actemra dose today - 1u convalescent plasma today - Continue high flow O2 - Continue Tessalon Perles and guaifenesin - Repeat COVID labs in AM - Start Vitamin C for 10 days - Up to chair as much as possible - Continue Dulera - Continue acebutolol, losartan and amlodipine - PRN Hydralazine - Continue nutritional supplements - Continue home PRN Oxycodone - Scheduled Senna BID - Restart home Colace - Continue Ropinirole 07/02/20 Completed Remdesivir 5 day course yesterday Has tolerated weaning of FiO2 well Last BM 06/27 VS trends - UC510-964/72-91 - Tmax 98 - HR 62-85 - SatO2 > 85% Intake and output - UO 2,120 - 24h balance +360 - Balance since admission +1,825 New lab results - Na down from 134 to 133 - PO4 down from 2.4 to 2.3 - Mag up from 1.8 to 1.9 - Ferritin down from 358 to 313 - LDH down from 488 to 419 - CK down from 195 to 97 - CRP down from 4.9 to 3.1 - BNP down from 1002 to 639 PLAN - Continue Dexamethasone day 5 - Continue high flow O2 taper - Continue Tessalon Perles and guaifenesin - Repeat COVID labs in AM - Continue Vitamin C for 10 days, day 2 - Up to chair as much as possible - Continue Dulera - Request records from [facility] - Continue acebutolol, losartan and amlodipine - PRN Hydralazine - Dietary follow up - Continue nutritional supplements - Continue home PRN Oxycodone - Scheduled Colace - Lactulose q6h until BM then discontinue - Restart home Colace - Continue Ropinirole 07/03/20 O2 requirements have not increase, remains on high flow 35L at 55% Still having end expiratory wheezing but no crackles VS trends - BP 105-146/59-89 - Tmax 97.5 - HR 63-91 - SatO2 > 85% Intake and output - UO 2,650 - 24h balance +897 - Balance since admission +2,837 New lab results - WBC up from 9.83-11.36, 0 bands - D-dimer up from 2-2.25 - Sodium up from 133 234 - GFR stable at greater than 60 - Phosphorus up from 2.3-2.4 - Magnesium down from 1.9-1.8 - Ferritin down from 313-277 - LDH down from 491-437 - CRP down from 3.1-2 07/04/2020 Generally much better. Decreasing respiratory support. Currently on room air with high flow nasal cannula at 35 L Blood pressure adequately controlled WBC 11 D-dimer slightly up at 2.39 CRP down to 1.4 proBNP 1030, no significant change from yesterday but down from a few days ago. Remaining lab work not significantly abnormal 07/05/2020 Patient had another episode of atrial fibrillation with RVR and spontaneously converted back to sinus rhythm. She was placed on Cardizem drip which was stopped this morning. Anticoagulated with Xarelto Continues a slow and steady recovery. Blood pressure well controlled 2-1/2 kg weight loss over 24 hours Decreased O2 supplementation to 5 L nasal cannula and maintaining oxygen saturations in the low to mid 90s Blood pressure continues adequate control White blood cell count increased slightly to 13.5, likely steroid effect Gram-negative coccobacilli from sputum culture sent to [facility] reference laboratory for further identification testing D-dimer down to 1.28, CRP 1.2 07/06/2020 Patient is generally feeling much better. No further episodes of atrial fibrillation overnight. Blood pressure and heart rate well controlled on increase of acebutolol from 200 mg in the morning to twice daily. Weaned down to 2 L nasal cannula with pulse ox in the low 90s Weight is down another 1.7 kg from yesterday. 07/07/2020 Patient is almost at baseline. She is on only 1 L at rest and I anticipate she will be off oxygen by tomorrow. Patient can be discharged when off oxygen. Lab show a normalized CRP and d-dimer continuing to drop 0.78. Renal function: GFR greater than 60. Sodium 136, hyponatremia resolved, of note BUN has increased during hospitalization from 15 on admission to 47 today. BUN to creatinine ratio was 58.8. This raises the concern of upper GI bleed. Other causes possible are protein catabolism from dexamethasone and prerenal azotemia. Hemoglobin did drop from 14.8-12.8. On admission her hemoglobin was 14.8 but on the second day of admission it was 12.5. Questionable if this is significant or not. Patient has had negative fluid balance since admission of only 361 with approximately 2 kg weight loss. Albumin has also dropped from 3.0-2.3. 07/08/2020 Discharge to home. Acute hypoxemic respiratory failure due to COVID-19 - resolved -Finished dexamethasone, remdesivir, Actemra, convalescent plasma. - Off supplemental O2 - Continue Tessalon Perles and guaifenesin Increasing BUN and BUN to creatinine ratio -Patient is on Xarelto and a steroid increasing the risk for upper GI bleed. -Dexamethasone can cause protein catabolism, but usually over a longer period of time. -Albumin has dropped -Hemoccult stool negative x1 -Continue pantoprazole in the morning and famotidine in the evening. -Recheck BMP next week. 2 episodes of atrial fibrillation with RVR -resolved Converted to sinus rhythm spontaneously acebutolol to 200 twice daily for rate control Echocardiogram canceled. Recommend follow-up with cycle liaison at discharge. Asthma - Continue Dulera - PRN Albuterol Hypertension - Continue acebutolol bid, losartan and amlodipine - PRN Hydralazine Hypoalbuminemia - Continue nutritional supplements Chronic back pain - Continue home PRN Oxycodone -PT Restless leg syndrome - Continue Ropinirole Intractable nausea and vomiting, resolved Acute respiratory alkalosis, resolved Hypochloremic alkalosis, resolved Hyponatremia/Hypomagnesemia/Hypochloremia/Hypokalemia, resolved UTI, completed treatment Mitral valve prolapse PROPHYLAXIS DVT- Xarelto GI- home PPI CODE STATUS: FULL CODE - Patient Instructions Diet: Heart Healthy Diet Activity: As Tolerated Driving: Do Not Drive Showering/Bathing: May Shower Notify Provider of: Fever Other/Special Instructions: Please follow up with your PCP next week. You will need a BMP (blood work) prior to seeing you provider. Please get a pulse oxygen sensor. If your oxygen level drops into the mid 80s or below go to the ER. You had a few episodes of irregular and fast heart rate. We increased you blood pressure/beta killian acebutolol to twice a day. Please follow up with your cycle liaison as soon as possible. You may need additional diagnostic testing. - Discharge Plan *PRESCRIPTION DRUG MONITORING PROGRAM REVIEWED*: No *COPY OF PRESCRIPTION DRUG MONITORING REPORT IN PATIENT BRITTANI: No Prescriptions/Med Rec: Rivaroxaban [Xarelto] 20 mg PO DAILY #30 tablet Home Medications: Home Meds Acebutolol [Sectral] 200 mg PO DAILY 06/11/16 [History] Albuterol [Proair HFA] 2 puff INH Q4H PRN 06/11/16 [History] Fluticasone Propion/Salmeterol [Advair 250-50 Diskus] 50 - 250 mcg IH BID 06/11/16 [History] Losartan Potassium 100 mg PO DAILY 06/11/16 [History] Montelukast [Singulair] 10 mg PO BEDTIME 06/11/16 [History] Omeprazole 20 mg PO DAILY 06/11/16 [History] amLODIPine Besylate [Norvasc] 2.5 mg PO DAILY #30 tablet 06/11/16 [Rx] prednisoLONE acetate [Pred Forte] 1 drop EYELF TID 06/11/16 [History] Cholecalciferol (Vitamin D3) [Vitamin D3] 1,000 units PO DAILY 06/27/20 [History] Cyanocobalamin (Vitamin B-12) [Vitamin B-12] 1,000 mcg PO DAILY 06/27/20 [History] Famotidine 20 mg PO BEDTIME 06/27/20 [History] Lutein/Minerals/Vit A,C & E [Ocuvite] 1 tab PO DAILY 06/27/20 [History] Niacin 250 mg PO DAILY 06/27/20 [History] Ranitidine HCl [Acid Automatic Spinning Lathe Operator] 75 mg PO BEDTIME 06/27/20 [History] oxyCODONE 5 mg PO DAILY PRN 06/27/20 [History] rOPINIRole [Requip] 1 - 1.5 mg PO BEDTIME PRN MDD 1.5 06/28/20 [History] Acebutolol [Sectral] 200 mg PO BEDTIME 07/05/20 [History] Melatonin 9 mg PO BEDTIME PRN tablet 07/08/20 [Rx] Rivaroxaban [Xarelto] 20 mg PO DAILY #30 tablet 07/08/20 [Rx] guaiFENesin [Robitussin] 400 mg PO TID cup 07/08/20 [Rx] oxyCODONE 5 mg PO DAILY PRN tablet 07/08/20 [Rx] Oxygen Therapy Mode: Room Air Patient Handouts: COVID-19 Frequently Asked Questions, COVID-19, Rivaroxaban oral tablets, Sepsis, Diagnosis, Adult, Atrial Fibrillation, Prevent the Spread of COVID-19 if You Are Sick - CDC Forms: ED Department Discharge Referrals: Bart Antoine Jr, MD [Primary Care Provider] - - Discharge Summary/Plan Comment DC Time >30 min.: Yes - General Info Date of Service: 07/08/20 Admission Dx/Problem (Free Text: Respiratory failure secondary to COVID 19 Subjective Update: Doing very well. BM yesterday. Off supplemental O2. Functional Status: Reports: Pain Controlled - Review of Systems General: Reports: No Symptoms HEENT: Reports: No Symptoms Pulmonary: Reports: No Symptoms Cardiovascular: Reports: No Symptoms Gastrointestinal: Reports: No Symptoms Musculoskeletal: Reports: No Symptoms Neurological: Reports: No Symptoms Psychiatric: Reports: No Symptoms - Patient Data Vitals - Most Recent: Last Vital Signs Temp 97.0 F 07/08/20 04:00 Pulse 69 07/07/20 07:52 Resp 18 07/08/20 04:00 BP 127/73 07/08/20 04:00 Pulse Ox 92 L 07/08/20 04:00 Weight - Most Recent: 62.913 kg I&O - Last 24 hours: Intake & Output 07/07/20 07/08/20 07/08/20 22:59 06:59 14:59 Intake Total 820 600 Output Total 700 Balance 120 600 Lab Results - Last 24 hrs: Laboratory Results - last 24 hr 07/07/20 07/08/20 Range/Units 04:24 04:45 Sodium 136 (136-145) mEq/L Potassium 4.3 (3.5-5.1) mEq/L Chloride 103 (98-107) mEq/L Carbon Dioxide 26 (21-32) mEq/L Anion Gap 11.3 (5-15) BUN 48 H (7-18) mg/dL Creatinine 0.9 (0.55-1.02) mg/dL Est Cr Clr Drug Dosing 45.12 mL/min Estimated GFR (MDRD) 60 (>60) mL/min BUN/Creatinine Ratio 53.3 H (14-18) Glucose 100 (83-115) mg/dL Calcium 8.6 (8.5-10.1) mg/dL Phosphorus 4.6 (2.6-4.7) mg/dL Total Bilirubin 0.5 (0.2-1.0) mg/dL AST 14 L (15-37) U/L ALT 37 (14-59) U/L Alkaline Phosphatase 33 L (46-116) U/L Total Protein 5.3 L (6.4-8.2) g/dl Albumin 2.5 L (3.4-5.0) g/dl Globulin 2.8 gm/dL Albumin/Globulin Ratio 0.9 L (1-2) DEVEN Results - Last 24 hrs: Microbiology 07/07/20 16:03 Stool Occult Blood (DEVEN) - Final Stool / Feces Med Orders - Current: Current Medications Acetaminophen (Tylenol) 650 mg PO Q4H PRN PRN Reason: Pain (Mild 1-3)/fever Last Admin: 07/07/20 01:10 Dose: 650 mg Documented by: Amlodipine Besylate (Norvasc) 2.5 mg PO DAILY [facility] Last Admin: 07/07/20 08:00 Dose: 2.5 mg Documented by: Ascorbic Acid (Vitamin C) 1,500 mg PO Q6H [facility] Last Admin: 07/08/20 06:06 Dose: Not Given Documented by: Benzonatate (Tessalon Perles) 100 mg PO TID [facility] Last Admin: 07/07/20 21:27 Dose: 100 mg Documented by: Famotidine (Pepcid) 20 mg PO BEDTIME [facility] Last Admin: 07/07/20 21:27 Dose: 20 mg Documented by: Guaifenesin (Robitussin) 400 mg PO TID [facility] Last Admin: 07/07/20 21:27 Dose: 400 mg Documented by: Losartan Potassium (Cozaar) 100 mg PO DAILY [facility] Last Admin: 07/07/20 08:01 Dose: 100 mg Documented by: Melatonin (Melatonin) 9 mg PO BEDTIME PRN PRN Reason: Insomnia Last Admin: 07/07/20 21:27 Dose: 9 mg Documented by: Mometasone Furoate/Formoterol Fumar (Dulera 200-5 Mcg) 2 puff IH BID [facility] Last Admin: 07/07/20 20:23 Dose: 2 puff Documented by: Niacin (Niaspan) 250 mg PO DAILY [facility] Last Admin: 07/07/20 08:01 Dose: 250 mg Documented by: Ondansetron HCl (Zofran) 4 mg IVPUSH Q8H PRN PRN Reason: Nausea Last Admin: 06/30/20 16:03 Dose: 4 mg Documented by: Oxycodone HCl (Oxycodone) 5 mg PO DAILY PRN PRN Reason: Pain Last Admin: 07/07/20 21:27 Dose: 5 mg Documented by: Pantoprazole Sodium (Protonix) 40 mg PO DAILY@0700 [facility] Last Admin: 07/08/20 06:48 Dose: 40 mg Documented by: Acebutolol 200 Mg 0 each PO BID [facility] Last Admin: 07/07/20 21:28 Dose: 1 each Documented by: Polyethylene Glycol (Miralax) 17 gm PO DAILY PRN PRN Reason: Constipation Last Admin: 07/07/20 08:00 Dose: 17 gm Documented by: Prednisolone Acetate (Pred Forte 1% Ophth Susp) 0 ml EYELF TID [facility] Last Admin: 07/07/20 21:28 Dose: 1 drop Documented by: Rivaroxaban (Xarelto) 20 mg PO DAILY [facility] Last Admin: 07/07/20 08:01 Dose: 20 mg Documented by: Ropinirole HCl (Requip) 1 - 1.5 mg PO BEDTIME PRN PRN Reason: Restless leg syndrome Last Admin: 07/07/20 21:27 Dose: 1 mg Documented by: Sodium Chloride (Saline Flush) 10 ml FLUSH ONETIME PRN PRN Reason: IV FLUSH Last Admin: 07/06/20 09:03 Dose: 10 ml Documented by: Discontinued Medications Bisacodyl (Dulcolax) 10 mg RECTAL ONETIME ONE Stop: 07/07/20 15:01 Last Admin: 07/07/20 15:18 Dose: 10 mg Documented by: Dexamethasone (Dexamethasone) 6 mg IVPUSH DAILY [facility] Last Admin: 06/30/20 08:40 Dose: 6 mg Documented by: Dexamethasone (Dexamethasone) 6 mg PO DAILY [facility] Stop: 07/07/20 09:01 Last Admin: 07/07/20 08:01 Dose: 6 mg Documented by: Diltiazem HCl (Cardizem) 50 mg IVPUSH ONETIME ONE Stop: 07/03/20 14:09 Last Admin: 07/03/20 14:31 Dose: Not Given Documented by: Diltiazem HCl (Cardizem) 17 mg 0.25 mg/kg (17 mg) IVPUSH NOW ONE Stop: 07/03/20 14:21 Last Admin: 07/03/20 14:25 Dose: 17 mg Documented by: Diltiazem HCl (Cardizem) 24 mg 0.35 mg/kg (24 mg) IVPUSH NOW ONE Stop: 07/03/20 15:32 Last Admin: 07/03/20 15:52 Dose: 24 mg Documented by: Diltiazem HCl (Cardizem) 24 mg 0.35 mg/kg (24 mg) IV NOW ONE Stop: 07/03/20 15:49 Last Admin: 07/03/20 16:39 Dose: Not Given Documented by: Docusate Sodium (Colace) 200 mg PO BID [facility] Last Admin: 07/02/20 08:47 Dose: 200 mg Documented by: Enoxaparin Sodium (Lovenox) 40 mg SUBCUT DAILY [facility] Last Admin: 07/03/20 08:29 Dose: 40 mg Documented by: Guaifenesin (Robitussin) 400 mg PO Q8H [facility] Last Admin: 06/30/20 10:11 Dose: 400 mg Documented by: Sodium Chloride (Normal Saline) 1,000 mls @ 1,000 mls/hr IV .BOLUS [facility] Last Admin: 06/27/20 20:38 Dose: 1,000 mls/hr Documented by: Sodium Chloride (Normal Saline) 1,000 mls @ 125 mls/hr IV ASDIRECTED [facility] Stop: 06/28/20 02:14 Last Admin: 06/28/20 04:17 Dose: 125 mls/hr Documented by: REMDESIVIR (EUA) 200 mg/ (Sodium Chloride) 250 mls @ 250 mls/hr IV ONETIME STA Stop: 06/27/20 18:04 Last Admin: 06/28/20 03:07 Dose: Not Given Documented by: REMDESIVIR (EUA) 100 mg/ (Sodium Chloride) 100 mls @ 100 mls/hr IV Q24H [facility] Stop: 07/01/20 21:59 Last Admin: 07/01/20 20:48 Dose: 100 mls/hr Documented by: Sodium Chloride (Normal Saline) 100 mls @ 75 mls/hr IV ASDIRECTED [facility] Stop: 06/28/20 09:50 Last Admin: 06/27/20 20:15 Dose: 75 mls/hr Documented by: REMDESIVIR (EUA) 200 mg/ (Sodium Chloride) 250 mls @ 250 mls/hr IV ONETIME STA Stop: 06/27/20 21:02 Last Admin: 06/28/20 16:21 Dose: Not Given Documented by: REMDESIVIR (EUA) 200 mg/ (Sodium Chloride) 250 mls @ 250 mls/hr IV ONETIME STA Stop: 06/27/20 20:59 Last Admin: 06/27/20 20:59 Dose: 250 mls/hr Documented by: Tocilizumab 400 mg/ Sodium (Chloride) 100 mls @ 100 mls/hr IV Q12H [facility] Stop: 06/28/20 23:59 Last Admin: 06/28/20 22:00 Dose: 100 mls/hr Documented by: Potassium Phosphate 30 mmole/ (Sodium Chloride) 510 mls @ 102 mls/hr IV ONETIME ONE Stop: 06/28/20 16:59 Last Admin: 06/28/20 11:18 Dose: 102 mls/hr Documented by: Potassium Chloride 10 meq/ (Premix) 100 mls @ 100 mls/hr IV Q1H [facility] Stop: 06/28/20 19:59 Last Admin: 06/28/20 18:58 Dose: 100 mls/hr Documented by: Magnesium Sulfate 4 gm/ Premix 50 mls @ 12.5 mls/hr IV ONETIME ONE Stop: 06/28/20 20:59 Last Admin: 06/28/20 16:49 Dose: 12.5 mls/hr Documented by: Sodium Chloride (Normal Saline) Confirm Administered Dose 100 mls @ as directed .ROUTE .STK-MED ONE Stop: 06/28/20 16:38 Last Admin: 06/28/20 17:34 Dose: Not Given Documented by: Sodium Chloride (Normal Saline) 250 mls @ 10 mls/hr IV ASDIRECTED [facility] Stop: 06/28/20 23:00 Last Admin: 06/28/20 17:46 Dose: 10 mls/hr Documented by: Tocilizumab 400 mg/ Sodium (Chloride) 100 mls @ 100 mls/hr IV ONETIME ONE Stop: 07/01/20 12:59 Last Admin: 07/01/20 12:38 Dose: 100 mls/hr Documented by: Magnesium Sulfate 2 gm/ Premix 50 mls @ 50 mls/hr IV Q1H [facility] Stop: 07/01/20 15:29 Last Admin: 07/01/20 14:43 Dose: 50 mls/hr Documented by: Potassium Chloride 10 meq/ (Premix) 100 mls @ 100 mls/hr IV Q1H [facility] Stop: 07/01/20 18:29 Last Admin: 07/01/20 17:59 Dose: 100 mls/hr Documented by: Lactated Ringer's (Ringers, Lactated) 500 mls @ 100 mls/hr IV ASDIRECTED [facility] Last Admin: 07/01/20 18:09 Dose: 100 mls/hr Documented by: Sodium Chloride (Normal Saline) Confirm Administered Dose 250 mls @ as directed .ROUTE .STK-MED ONE Stop: 07/01/20 18:37 Last Admin: 07/01/20 20:52 Dose: 50 mls/hr Documented by: Diltiazem HCl 100 mg/ Sodium (Chloride) 100 mls @ 5 mls/hr IV TITRATE [facility]; Protocol Last Titration: 07/05/20 08:15 Dose: 0 mg/hr, 0 mls/hr Documented by: Iopamidol (Isovue-370 (76%)) 100 ml IVPUSH ONETIME ONE Stop: 06/27/20 19:16 Last Admin: 06/27/20 20:00 Dose: 100 ml Documented by: Lactulose (Cephulac) 20 gm PO Q6H [facility] Last Admin: 07/02/20 19:42 Dose: Not Given Documented by: Nitrofurantoin Macrocrystals (Macrobid) 100 mg PO BID [facility] Stop: 06/30/20 21:01 Last Admin: 06/30/20 20:42 Dose: 100 mg Documented by: Ondansetron HCl (Zofran) 4 mg IVPUSH ONETIME ONE Stop: 06/27/20 14:18 Last Admin: 06/27/20 14:38 Dose: 4 mg Documented by: Ondansetron HCl (Zofran) 4 mg IVPUSH Q8H [facility] Stop: 06/28/20 02:16 Last Admin: 06/28/20 04:12 Dose: 4 mg Documented by: Acebutolol 200 Mg 200 each PO DAILY [facility] Last Admin: 06/29/20 09:06 Dose: Not Given Documented by: Acebutolol 200 Mg 0 each PO DAILY [facility] Last Admin: 07/05/20 08:35 Dose: 1 each Documented by: Rivaroxaban (Xarelto) 15 mg PO BID [facility] Last Admin: 09/05/20 15:20 Dose: Not Given Documented by: Rivaroxaban (Xarelto) 20 mg PO DAILY [facility] Last Admin: 07/06/20 08:53 Dose: 20 mg Documented by: Senna (Senna) 8.6 mg PO DAILY [facility] Last Admin: 07/02/20 08:50 Dose: 8.6 mg Documented by: Sodium Chloride (Saline Flush) 10 ml FLUSH ASDIRECTED PRN PRN Reason: Keep Vein Open Last Admin: 06/27/20 15:36 Dose: 10 ml Documented by: - Exam Quality Assessment: Denies: Supplemental Oxygen General: Reports: Alert, Oriented HEENT: Reports: Pupils Equal, Mucous Membr. Moist/[place] Neck: Reports: Supple Lungs: Reports: Clear to Auscultation, Normal Respiratory Effort Cardiovascular: Reports: Regular Rate, Regular Rhythm GI/Abdominal Exam: Normal Bowel Sounds, Soft, Non-Tender, No Distention Back Exam: Reports: Normal Inspection, Full Range of Motion Extremities: Normal Inspection, Normal Range of Motion, No Pedal Edema, Normal Capillary Refill Skin: Reports: Warm, Dry, Intact Neurological: Reports: No New Focal Deficit Psy/Mental Status: Reports: Alert, Normal Affect, Normal Mood
[2020-07-08 07:55] VITALS: BP 159/72
[2020-07-08] MEDS: Rivaroxaban 10 MG Tab PO SCH (08:00)
[2020-07-08] MEDS: amLODIPine 2.5 MG Tab PO SCH (08:00)
[2020-07-08] MEDS: Polyethylene Glycol 3350 Powder 17 GM Packet PO PRN (08:00)
[2020-07-08] MEDS: Formoterol/Mometasone 200-5 MCG 8.8 GM Inhaler IH SCH (08:01)
[2020-07-08] MEDS: prednisoLONE Acetate 1% Ophth Susp 5 ML Bottle EYELF SCH (08:03)
[2020-07-08] MEDS: ACEBUTOLOL 200 MG PO SCH (08:03)
[2020-07-08] MEDS: Benzonatate 100 MG Cap PO SCH (08:04)
[2020-07-08] MEDS: guaiFENesin 100 MG/5 ML Soln 10 ML UD Cup PO SCH (08:05)
[2020-07-08] MEDS: Losartan 100 MG Tab PO SCH (08:05)
[2020-07-08] MEDS: Niacin 500 MG Tab.ER PO SCH ×2 (08:07→08:22)
== END 2020-07-08 12:05 | disposition home or self-care (01) | DRG 177 ==
LOC: JD.ED 13:38 → JD.MS 18:03 → JD.ICU 06-28 07:56
PROVIDERS: ADMIT Internal Medicine; ATTEND Internal Medicine
PROC: XW033E5 Introduction of Remdesivir Anti-infective into Peripheral Vein, Percutaneous Approach, New Technology Group 5 (ICD-10-PCS; principal; 2020-06-27)
PROC: XW033E5 Introduction of Remdesivir Anti-infective into Peripheral Vein, Percutaneous Approach, New Technology Group 5 (ICD-10-PCS; 2020-06-28)
PROC: XW033H5 Introduction of Tocilizumab into Peripheral Vein, Percutaneous Approach, New Technology Group 5 (ICD-10-PCS; 2020-06-28)
PROC: XW14325 Transfusion of Convalescent Plasma (Nonautologous) into Central Vein, Percutaneous Approach, New Technology Group 5 (ICD-10-PCS; 2020-06-28)
PROC: XW033E5 Introduction of Remdesivir Anti-infective into Peripheral Vein, Percutaneous Approach, New Technology Group 5 (ICD-10-PCS; 2020-06-29)
PROC: XW14325 Transfusion of Convalescent Plasma (Nonautologous) into Central Vein, Percutaneous Approach, New Technology Group 5 (ICD-10-PCS; 2020-06-29)
PROC: XW033E5 Introduction of Remdesivir Anti-infective into Peripheral Vein, Percutaneous Approach, New Technology Group 5 (ICD-10-PCS; 2020-06-30)
PROC: XW033E5 Introduction of Remdesivir Anti-infective into Peripheral Vein, Percutaneous Approach, New Technology Group 5 (ICD-10-PCS; 2020-07-01)
DX: U07.1 COVID-19 (principal); J12.9 Viral pneumonia, unspecified; J96.01 Acute respiratory failure with hypoxia; R09.02 Hypoxemia; H54.7 Unspecified visual loss; E87.3 Alkalosis; E87.1 Hypo-osmolality and hyponatremia; Z87.440 Personal history of urinary (tract) infections; N39.0 Urinary tract infection, site not specified; D72.810 Lymphocytopenia; Z98.49 Cataract extraction status, unspecified eye; E83.42 Hypomagnesemia; E87.8 Other disorders of electrolyte and fluid balance, not elsewhere classified; Z98.890 Other specified postprocedural states; Z88.8 Allergy status to other drugs, medicaments and biological substances; J45.909 Unspecified asthma, uncomplicated; I34.1 Nonrheumatic mitral (valve) prolapse; E88.09 Other disorders of plasma-protein metabolism, not elsewhere classified; K59.09 Other constipation; G89.29 Other chronic pain; M54.9 Dorsalgia, unspecified; D64.9 Anemia, unspecified; Z96.649 Presence of unspecified artificial hip joint; Z96.659 Presence of unspecified artificial knee joint; D69.6 Thrombocytopenia, unspecified; G25.81 Restless legs syndrome; I10 Essential (primary) hypertension; I48.91 Unspecified atrial fibrillation; Z87.01 Personal history of pneumonia (recurrent); Z88.6 Allergy status to analgesic agent; Z88.5 Allergy status to narcotic agent; Z79.52 Long term (current) use of systemic steroids; Z79.899 Other long term (current) drug therapy; Z90.49 Acquired absence of other specified parts of digestive tract; Z90.710 Acquired absence of both cervix and uterus
CPT/HCPCS: 36415; 36430; 36600; 51702; 71045; 71045-26; 71275; 71275-26; 80048; 80053; 81001; 82272; 82550; 82728; 82803; 83605; 83615; 83735; 83880; 84100; 84145; 84484; 85007; 85025; 85027; 85379; 85610; 85730; 86140; 86900; 86901; 87040; 87070; 87086; 87205; 93005; 94640; 94660; 97110-GP; 97162-GP; 97165-GO; 99284; A9270-GY; J1100; J1650; J2405; J3262; J3475; J3480; J3490; J7030; J7040; J7050; J7120; J8540; P9017; Q9967; U0002

== ENCOUNTER 2021-01-09 17:15 | Emergency (ER) | payer MEDICARE, OTHER ==
[2021-01-09 17:35] VITALS: BP 186/75; PULSE 69
--- NOTE | 2021-01-09 18:41 | EDM.PDOC ---
ED HPI GENERAL MEDICAL PROBLEM - General Chief Complaint: DIRECT SALES REPRESENTATIVE Problem Stated Complaint: GENITOURINARY PROBLEM Time Seen by Provider: 01/09/21 17:58 Source of Information: Reports: Patient, RN Notes Reviewed History Limitations: Reports: No Limitations - History of Present Illness INITIAL COMMENTS - FREE TEXT/NARRATIVE: Patient is an 80-year-old female who presents to the ED for evaluation of a genitourinary issue. Patient notes that she was going to the bathroom just prior to coming to the ER, when she went to wipe she felt something bulging out of her vagina. She states she has not noticed this before ever. She is not having any pain or discomfort she is not noting any bleeding to the area. She does note when she stands up, it seems to be worse however when she lays down the pressure seems to lessen. Patient denies any other sick-like symptoms, fever/chills, cough/shortness of breath, nausea/vomiting/diarrhea. - Related Data Allergies Allergy/AdvReac Type Severity Reaction Status Date / Time hydrocodone bitartrate AdvReac Severe Hallucinati Verified 01/09/21 17:35 [From Vicodin] ons Home Meds: Home Meds Albuterol [Proair HFA] 2 puff INH Q4H PRN 06/11/16 [History] Fluticasone Propion/Salmeterol [Advair 250-50 Diskus] 50 - 250 mcg IH BID 06/11/16 [History] Losartan Potassium 100 mg PO DAILY 06/11/16 [History] Montelukast [Singulair] 10 mg PO BEDTIME 06/11/16 [History] Omeprazole 20 mg PO DAILY 06/11/16 [History] amLODIPine Besylate [Norvasc] 2.5 mg PO DAILY #30 tablet 06/11/16 [Rx] prednisoLONE acetate [Pred Forte] 1 drop EYELF TID PRN 06/11/16 [History] Cholecalciferol (Vitamin D3) [Vitamin D3] 1,000 units PO DAILY 06/27/20 [History] Cyanocobalamin (Vitamin B-12) [Vitamin B-12] 1,000 mcg PO DAILY 06/27/20 [History] Famotidine 20 mg PO BEDTIME 06/27/20 [History] Lutein/Minerals/Vit A,C & E [Ocuvite] 1 tab PO DAILY 06/27/20 [History] Niacin 250 mg PO DAILY 06/27/20 [History] Ranitidine HCl [Acid Lieutenant Fire Fighter] 75 mg PO BEDTIME 06/27/20 [History] rOPINIRole [Requip] 1 - 1.5 mg PO BEDTIME PRN MDD 1.5 06/28/20 [History] Acebutolol [Sectral] 200 mg PO BID 07/05/20 [History] Melatonin 9 mg PO BEDTIME PRN tablet 07/08/20 [Rx] Rivaroxaban [Xarelto] 20 mg PO DAILY #30 tablet 07/08/20 [Rx] Tiotropium [Spiriva] 2 puff INH DAILY 01/09/21 [History] oxyCODONE 2.5 mg PO BEDTIME PRN 01/09/21 [History] Past Medical History HEENT History: Reports: Cataract, Impaired Vision, Other (See Below) Other HEENT History: strep throat, wears reading glasses, "hystoplasmosis left eye" Cardiovascular History: Reports: Heart Murmur, Hypertension, Other (See Below) Other Cardiovascular History: mitral valve prolapse. Respiratory History: Reports: Asthma Gastrointestinal History: Reports: GERD Other Gastrointestinal History: Inguinal hernias x3 Genitourinary History: Reports: UTI, Recurrent DIRECT SALES REPRESENTATIVE History: Reports: Other DIRECT SALES REPRESENTATIVE History: , hysterectomy Musculoskeletal History: Reports: Fracture Other Musculoskeletal History: tailbone, L) ankle. Neurological History: Reports: Neuropathy, Peripheral, Other (See Below) Other Neuro History: Restless Legs. Hematologic History: Reports: Anemia - Infectious Disease History Infectious Disease History: Reports: Chicken Pox, Measles, Mumps, Novel Coronavirus Other Infectious Disease History: Current COVID infection. - Past Surgical History HEENT Surgical History: Reports: Cataract Surgery Other Cardiovascular Surgeries/Procedures: angiogram GI Surgical History: Reports: Appendectomy Female Surgical History: Reports: Section, Hysterectomy Musculoskeletal Surgical History: Reports: Hip Replacement, Knee Replacement, Other (See Below) Other Musculoskeletal Surgeries/Procedures:: back surgery. Social & Family History - Family History Family Medical History: No Pertinent Family History - Tobacco Use Tobacco Use Status *Q: Former Tobacco User Used Tobacco, but Quit: Yes Month/Year Tobacco Last Used: 2005 - Caffeine Use Caffeine Use: Reports: None - Recreational Drug Use Recreational Drug Use: No ED ROS GENERAL - Review of Systems Review Of Systems: Comprehensive ROS is negative, except as noted in HPI. ED EXAM, RENAL/ - Physical Exam Exam: See Below Exam Limited By: No Limitations General Appearance: Alert, WD/WN, No Apparent Distress Respiratory/Chest: No Respiratory Distress, Lungs Clear, Normal Breath Sounds, No Accessory Muscle Use, Chest Non-Tender Cardiovascular: Normal Peripheral Pulses, Regular Rate, Rhythm, No Edema (Female) Exam: Normal External Exam, Other (pt is laying down but the bladder is close to the vaginal opening) Extremities: Normal Inspection, Normal Capillary Refill Neurological: Alert, Oriented, Normal Cognition, No Motor/Sensory Deficits Psychiatric: Normal Affect, Normal Mood Skin Exam: Warm, Dry, Intact, Normal Color, No Rash Course - Vital Signs Last Recorded V/S: Last Vital Signs Temp 97.8 F 01/09/21 17:32 Pulse 69 01/09/21 17:32 Resp 16 01/09/21 17:32 BP 186/75 H 01/09/21 17:32 Pulse Ox 94 L 01/09/21 17:32 - Re-Assessments/Exams Free Text/Narrative Re-Assessment/Exam: 01/09/21 18:54 Patient we will give her general conservative recommendations and have her follow-up with her primary care or DIRECT SALES REPRESENTATIVE of choice, I did contact presents to the ER for her genitourinary issue, clinically consistent with a cystocele at this time. Dr. Crandall our DIRECT SALES REPRESENTATIVE on-call, and she states this is a good plan at this time and has no other emergent issues apparent. Departure - Departure Time of Disposition: 18:31 Disposition: Home, Self-Care 01 Condition: Good Clinical Impression: Female bladder prolapse - Discharge Information *PRESCRIPTION DRUG MONITORING PROGRAM REVIEWED*: No *COPY OF PRESCRIPTION DRUG MONITORING REPORT IN PATIENT BRITTANI: No Instructions: Pelvic Organ Prolapse Referrals: Anna Wan MD [Primary Care Provider] - Forms: ED Department Discharge Additional Instructions: You were evaluated in the ER today for your vaginal issues. You were identified to have a prolapsed bladder, if this is not bothersome, and you can still urinate, is not painful, or bleeding, this is not a surgical for other emergent issue at today's visit. This can be management on outpatient basis, please coordinate care with your DIRECT SALES REPRESENTATIVE or family practice provider of choice, for possible operative vs non- operative management options. You might feel some pelvic discomfort/pressure when standing until you can be seen by your provider for these management options. You might be able to do some Kegel exercises, which will strengthen the pelvic floor muscles, these are performed just by tightening your pelvic floor muscles by squeezing and then releasing in 5-second intervals. For a few times each. Please return to the ER at any time if symptoms change or worsen. Sepsis Event Note (ED) - Evaluation Sepsis Screening Result: No Definite Risk - Focused Exam Vital Signs: Vital Signs Temp Pulse Resp BP Pulse Ox 01/09/21 17:32 97.8 F 69 16 186/75 H 94 L
== END 2021-01-09 18:53 | disposition home or self-care (01) ==
LOC: JD.ED 17:15
DX: N81.10 Cystocele, unspecified (principal); I10 Essential (primary) hypertension; J45.909 Unspecified asthma, uncomplicated; K21.9 Gastro-esophageal reflux disease without esophagitis; Z86.16 Personal history of COVID-19; Z87.891 Personal history of nicotine dependence; Z88.5 Allergy status to narcotic agent; Z79.899 Other long term (current) drug therapy; Z79.01 Long term (current) use of anticoagulants
CPT/HCPCS: 99282; 99283

== ENCOUNTER 2023-01-12 16:52 | Emergency (ER) | payer MEDICARE, OTHER ==
[2023-01-12] MEDS ORDERED: Sodium Chloride 0.9% 10 ML Syringe FLUSH PRN (18:09)
[2023-01-12] MEDS ORDERED: Sodium Chloride 0.9% 1,000 ML IV ONE (19:03)
[2023-01-12 19:11] LABS: CORONAVIRUS COVID-19 NAA NEGATIVE (NEGATIVE)
[2023-01-12] MEDS ORDERED: Diltiazem 25 MG/5 ML SDV IVPUSH ONE ×2 (20:10→20:46)
[2023-01-12] MEDS ORDERED: Potassium Chloride 20 MEQ Tab.ER PO ONE (20:16)
[2023-01-12] MEDS ORDERED: Amoxicillin/Clavulanate K 875-125 MG Tab PO ONE (21:23)
[2023-01-12] MEDS ORDERED: Azithromycin 250 MG Tab PO ONE (21:24)
[2023-01-12] MEDS ORDERED: Ibuprofen 400 MG Tab PO ONE (21:28)
[2023-01-12] MEDS ORDERED: Acetaminophen 325 MG Tab PO ONE (21:28)
[2023-01-12 21:57] VITALS: BP 110/77; PULSE 107
== END 2023-01-12 21:55 | disposition home or self-care (01) ==
LOC: JD.ED 16:52
DX: J18.9 Pneumonia, unspecified organism (principal); I48.91 Unspecified atrial fibrillation; J44.9 Chronic obstructive pulmonary disease, unspecified; I10 Essential (primary) hypertension; J45.909 Unspecified asthma, uncomplicated; K21.9 Gastro-esophageal reflux disease without esophagitis; Z86.16 Personal history of COVID-19; Z88.5 Allergy status to narcotic agent; Z79.01 Long term (current) use of anticoagulants; Z79.899 Other long term (current) drug therapy; Z20.822 Contact with and (suspected) exposure to COVID-19
CPT/HCPCS: 0240U; 36415; 71045; 80053; 83605; 83880; 84484; 85007; 85027; 86140; 93005; 96361; 96374; 96376; 99285; A9270; J3490; J7030; 93010; 99284

== ENCOUNTER 2023-01-27 07:05 | Inpatient (IN) | payer MEDICARE, OTHER ==
[2023-01-27] MEDS ORDERED: Ondansetron 4 MG/2 ML SDV IVPUSH ONE (07:51)
[2023-01-27] MEDS ORDERED: HYDROmorphone 1 MG/ML Syringe IVPUSH STA (07:51)
[2023-01-27] MEDS ORDERED: Sodium Chloride 0.9% 1,000 ML IV SCH (08:00)
[2023-01-27 09:13] LABS: CORONAVIRUS COVID-19 NAA NEGATIVE (NEGATIVE)
[2023-01-27] MEDS ORDERED: Iopamidol 612 MG/ML 100 ML Bottle IVPUSH ONE (09:47)
[2023-01-27] MEDS ORDERED: Promethazine 12.5 MG in Sodium Chloride 0.9% 50 ML IV PRN (13:58)
[2023-01-27] MEDS ORDERED: Acetaminophen 325 MG Tab PO PRN ×2 (13:58)
[2023-01-27] MEDS ORDERED: oxyCODONE 5 MG Tab PO PRN (13:58)
[2023-01-27] MEDS ORDERED: Albuterol/Ipratropium 3.0-0.5 MG/3 ML Neb Soln NEB PRN ×2 (13:58)
[2023-01-27] MEDS ORDERED: LORazepam 2 MG/ML SDV IV PRN (13:58)
[2023-01-27] MEDS ORDERED: Morphine 2 MG/ML SYRINGE IVPUSH PRN ×2 (13:58)
[2023-01-27] MEDS ORDERED: Ondansetron 4 MG/2 ML SDV IV PRN (13:58)
[2023-01-27] MEDS ORDERED: Docusate Sodium 100 MG Cap PO PRN (13:58)
[2023-01-27] MEDS ORDERED: Heparin Sodium 5,000 Units/ML Vial SUBCUT SCH (14:00)
[2023-01-27] MEDS ORDERED: Melatonin 3 MG Tab PO PRN ×2 (14:07→20:31)
[2023-01-27] MEDS ORDERED: hydrALAZINE 20 MG/ML SDV IVPUSH PRN (14:07)
[2023-01-27] MEDS ORDERED: Non-Formulary Medication 1 Each (Melatonin [Melatonin] 5 MG Tablet) PO PRN (14:10)
[2023-01-27] MEDS: TRELEGY ELLIPTA INH SCH (15:27)
[2023-01-27] MEDS: Albuterol/Ipratropium 3.0-0.5 MG/3 ML Neb Soln NEB PRN ×2 (15:27→19:52)
[2023-01-27] MEDS: Sodium Chloride 0.9% 1,000 ML IV SCH (17:45)
[2023-01-27] MEDS ORDERED: Rivaroxaban 10 MG Tab PO SCH (18:00)
[2023-01-27] MEDS: Morphine 2 MG/ML SYRINGE IVPUSH PRN (20:45)
[2023-01-27] MEDS ORDERED: Rivaroxaban 10 MG Tab PO ONE (20:45)
[2023-01-27] MEDS: Metoprolol Tartrate 25 MG Tab PO SCH (21:47)
[2023-01-28] MEDS: Metoprolol Tartrate 25 MG Tab PO SCH ×3 (05:00→21:16)
[2023-01-28 05:57] LABS: ESTIMATED GFR 73 mL/min (>60)
[2023-01-28] MEDS ORDERED: Non-Formulary Medication 1 Each (Omeprazole 20 MG Capsule.Dr) PO SCH (06:00)
[2023-01-28] MEDS: Albuterol/Ipratropium 3.0-0.5 MG/3 ML Neb Soln NEB PRN ×4 (06:07→20:37)
[2023-01-28] MEDS: Pantoprazole 40 MG Tab.CR PO SCH ×2 (06:37→15:43)
[2023-01-28] MEDS ORDERED: Docusate Sodium 100 MG Cap PO SCH (09:00)
[2023-01-28] MEDS ORDERED: Enoxaparin 40 MG/0.4 ML Syringe SUBCUT SCH (09:00)
[2023-01-28] MEDS ORDERED: Polyethylene Glycol 3350 Powder 17 GM Packet PO SCH (09:00)
[2023-01-28] MEDS ORDERED: Non-Formulary Medication 1 Each (Fluticasone/Umeclidin/Vilanter 1 EACH Blst.W.Dev) INH SCH (09:00)
[2023-01-28] MEDS ORDERED: Non-Formulary Medication 1 Each (Alendronate Sodium 70 MG Tablet) PO SCH (09:00)
[2023-01-28] MEDS ORDERED: Losartan 50 MG Tab PO SCH (09:00)
[2023-01-28] MEDS: Diltiazem 240 MG Cap.ER PO SCH (09:06)
[2023-01-28] MEDS: TRELEGY ELLIPTA INH SCH (09:07)
[2023-01-28] MEDS: Sodium Chloride 0.9% 1,000 ML IV SCH ×2 (09:38→21:20)
[2023-01-28] MEDS: Losartan 50 MG Tab PO SCH (12:23)
[2023-01-28] MEDS: Morphine 2 MG/ML SYRINGE IVPUSH PRN (15:43)
[2023-01-28] MEDS: Rivaroxaban 15 MG Tab PO SCH (17:24)
[2023-01-28] MEDS: Montelukast 10 MG Tab PO SCH (21:17)
[2023-01-28] MEDS: rOPINIRole 0.25 MG Tab PO PRN (21:18)
[2023-01-29] MEDS: Pantoprazole 40 MG Tab.CR PO SCH ×2 (05:10→16:54)
[2023-01-29] MEDS: Metoprolol Tartrate 25 MG Tab PO SCH ×3 (05:12→20:45)
[2023-01-29 06:14] LABS: ESTIMATED GFR 85 mL/min (>60)
[2023-01-29] MEDS: Albuterol/Ipratropium 3.0-0.5 MG/3 ML Neb Soln NEB PRN ×3 (09:05→20:01)
[2023-01-29] MEDS: TRELEGY ELLIPTA INH SCH (09:05)
[2023-01-29] MEDS: Losartan 50 MG Tab PO SCH (09:16)
[2023-01-29] MEDS: Diltiazem 240 MG Cap.ER PO SCH (09:16)
[2023-01-29] MEDS: Sodium Chloride 0.9% 1,000 ML IV SCH (12:26)
[2023-01-29] MEDS ORDERED: Diatrizoate Meglumine/Diatrizoate Sodium 37% 120 ML Bottle PO ONE (14:19)
[2023-01-29] MEDS: Rivaroxaban 15 MG Tab PO SCH (18:29)
[2023-01-29] MEDS: Montelukast 10 MG Tab PO SCH (20:46)
[2023-01-29] MEDS: Acetaminophen 325 MG Tab PO PRN (23:17)
[2023-01-29] MEDS: oxyCODONE 5 MG Tab PO PRN (23:18)
[2023-01-29] MEDS: rOPINIRole 0.25 MG Tab PO PRN (23:23)
[2023-01-30] MEDS: Metoprolol Tartrate 25 MG Tab PO SCH ×3 (04:46→21:06)
[2023-01-30] MEDS: Sodium Chloride 0.9% 1,000 ML IV SCH (04:47)
[2023-01-30] MEDS: Pantoprazole 40 MG Tab.CR PO SCH ×3 (04:49→15:12)
[2023-01-30] MEDS: Albuterol/Ipratropium 3.0-0.5 MG/3 ML Neb Soln NEB PRN ×4 (06:01→20:47)
[2023-01-30] MEDS: Diltiazem 240 MG Cap.ER PO SCH (08:55)
[2023-01-30] MEDS: Losartan 50 MG Tab PO SCH (08:55)
[2023-01-30] MEDS: TRELEGY ELLIPTA INH SCH (09:17)
[2023-01-30] MEDS: Rivaroxaban 15 MG Tab PO SCH (17:30)
[2023-01-30] MEDS: oxyCODONE 5 MG Tab PO PRN (21:05)
[2023-01-30] MEDS: rOPINIRole 0.25 MG Tab PO PRN (21:06)
[2023-01-30] MEDS: Montelukast 10 MG Tab PO SCH (21:06)
[2023-01-30] MEDS: Acetaminophen 325 MG Tab PO PRN (21:39)
[2023-01-31] MEDS: Metoprolol Tartrate 25 MG Tab PO SCH ×2 (05:08→12:10)
[2023-01-31] MEDS: Pantoprazole 40 MG Tab.CR PO SCH (05:09)
[2023-01-31] MEDS: Albuterol/Ipratropium 3.0-0.5 MG/3 ML Neb Soln NEB PRN ×3 (06:01→14:45)
[2023-01-31] MEDS: Losartan 50 MG Tab PO SCH (08:32)
[2023-01-31] MEDS: Diltiazem 240 MG Cap.ER PO SCH (08:32)
[2023-01-31] MEDS: TRELEGY ELLIPTA INH SCH (09:30)
[2023-01-31 12:11] VITALS: BP 119/71; PULSE 72
== END 2023-01-31 15:52 | disposition home or self-care (01) | DRG 389 ==
LOC: JD.ED 07:05 → JD.MS 12:33
PROVIDERS: ADMIT Internal Medicine; ATTEND Internal Medicine
PROC: 0DH67UZ Insertion of Feeding Device into Stomach, Via Natural or Artificial Opening (ICD-10-PCS; principal; 2023-01-27)
DX: K56.51 Intestinal adhesions [bands], with partial obstruction (principal); E87.1 Hypo-osmolality and hyponatremia; J96.11 Chronic respiratory failure with hypoxia; N17.9 Acute kidney failure, unspecified; I10 Essential (primary) hypertension; I48.0 Paroxysmal atrial fibrillation; J44.9 Chronic obstructive pulmonary disease, unspecified; K21.9 Gastro-esophageal reflux disease without esophagitis; Z20.822 Contact with and (suspected) exposure to COVID-19; M81.0 Age-related osteoporosis without current pathological fracture; D64.9 Anemia, unspecified; Z96.651 Presence of right artificial knee joint; G25.81 Restless legs syndrome; G62.9 Polyneuropathy, unspecified; R73.9 Hyperglycemia, unspecified; M85.80 Other specified disorders of bone density and structure, unspecified site; Z96.643 Presence of artificial hip joint, bilateral; Z79.899 Other long term (current) drug therapy; Z90.49 Acquired absence of other specified parts of digestive tract; Z98.890 Other specified postprocedural states; Z88.5 Allergy status to narcotic agent; Z87.440 Personal history of urinary (tract) infections; Z90.710 Acquired absence of both cervix and uterus; Z87.01 Personal history of pneumonia (recurrent); Z87.891 Personal history of nicotine dependence
CPT/HCPCS: 0241U; 36415; 71045; 71045-26; 74018; 74018-26; 74177; 74177-26; 80053; 81001; 83690; 83735; 83880; 84100; 84484; 85007; 85025; 85027; 86140; 87040; 93005; 93010; 94640; 94761; 94762; 96361; 96374; 96375; 99285; 99285-25; A9270-GY; J1170; J2270; J2405; J3490; J7030; J7620-GY; Q9967

== ENCOUNTER 2023-04-12 16:46 | Emergency (ER) | payer MEDICARE, OTHER ==
[2023-04-12 17:00] VITALS: BP 163/79; PULSE 62
[2023-04-12] MEDS ORDERED: Sodium Chloride 0.9% 10 ML Syringe FLUSH PRN (17:07)
[2023-04-12 17:33] LABS: BASOPHILS ABSOLUTE AUTO 0.02 K/mm3 (0.01-0.08); BASOPHILS PERCENT AUTO 0.4 % (0.1-1.2); EOSINOPHILS ABSOLUTE AUTO 0.13 K/mm3 (0.04-0.36); EOSINOPHILS PERCENT AUTO 2.3 (0.7-5.8); HEMATOCRIT 31.5 % (34.1-44.9); IMMATURE GRAN ABSOLUTE AUTO 0.01 K/mm3 (0.00-0.10); IMMATURE GRAN PERCENT AUTO 0.2 % (<=1.0); LYMPHOCYTES ABSOLUTE AUTO 0.99 K/mm3 (1.18-3.74); LYMPHOCYTES PERCENT AUTO 17.4 % (19.3-51.7); MEAN CORPUSCULAR HEMOGLOBIN 27.5 pg (25.6-32.2); MEAN CORPUSCULAR HGB CONC 32.7 g/dl (32.2-35.5); MEAN PLATELET VOLUME 9.1 fl (9.4-12.3); MONOCYTES ABSOLUTE AUTO 0.67 K/mm3 (0.24-0.36); MONOCYTES PERCENT AUTO 11.8 % (4.7-12.5); NEUTROPHILS ABSOLUTE AUTO 3.87 K/mm3 (1.56-6.13); NEUTROPHILS PERCENT AUTO 67.9 % (34.0-71.1); PLATELET COUNT,PLT 207 K/mm3 (182-369); RED BLOOD CELL COUNT 3.75 M/mm3 (3.98-5.22); WHITE BLOOD CELL COUNT,WBC 5.69 K/mm3 (3.98-10.04)
[2023-04-12 17:37] LABS: HEMOGLOBIN 10.3 gm/dl (11.2-15.7)
[2023-04-12 17:59] LABS: A/G RATIO 1.1 (1-2); ALANINE AMINOTRANSFERASE,ALT 17 U/L (14-59); ALBUMIN 3.4 g/dl (3.4-5.0); ALKALINE PHOSPHATASE 49 U/L (46-116); ANION GAP 13.5 (5-15); ASPARTATE AMNIOTRANSFERASE,AST 16 U/L (15-37); BILIRUBIN TOTAL 0.7 mg/dL (0.2-1.0); BLOOD UREA NITROGEN,BUN 15 mg/dL (7-18); BUN/CREATININE RATIO 21.4 (14-18); C-REACTIVE PROTEIN <0.2 mg/dL (<1.0); CALCIUM 8.5 mg/dL (8.5-10.1); CARBON DIOXIDE,CO2 23 mEq/L (21-32); CHLORIDE,CL 106 mEq/L (98-107); CREATININE 0.7 mg/dL (0.55-1.02); EST CRCL DRUG DOSING (CG) 52.87 mL/min; ESTIMATED GFR 85 mL/min (>60); GLUCOSE RANDOM 93 mg/dL (70-99); POTASSIUM,K 3.5 mEq/L (3.5-5.1); PROTEIN TOTAL,TP 6.6 g/dl (6.4-8.2); SODIUM,NA 139 mEq/L (136-145)
[2023-04-12] MEDS ORDERED: Furosemide 40 MG Tab PO ONE (18:37)
[2023-04-12] MEDS ORDERED: Azithromycin 250 MG Tab PO ONE (18:37)
[2023-04-12] MEDS ORDERED: Amoxicillin/Clavulanate K 875-125 MG Tab PO ONE (18:38)
== END 2023-04-12 19:04 | disposition home or self-care (01) ==
LOC: JD.ED 16:46
DX: I11.0 Hypertensive heart disease with heart failure (principal); I50.9 Heart failure, unspecified; I48.91 Unspecified atrial fibrillation; J44.9 Chronic obstructive pulmonary disease, unspecified; K21.9 Gastro-esophageal reflux disease without esophagitis; Z86.16 Personal history of COVID-19; Z88.5 Allergy status to narcotic agent; Z79.899 Other long term (current) drug therapy; Z79.01 Long term (current) use of anticoagulants
CPT/HCPCS: 36415; 71046; 80053; 83880; 84484; 85025; 85379; 86140; 93005; 99285; A9270; J3490

== ENCOUNTER 2023-10-16 10:16 | Emergency (ER) | payer MEDICARE, OTHER ==
[2023-10-16] MEDS ORDERED: Ondansetron 4 MG/2 ML SDV IVPUSH ONE (11:48)
[2023-10-16] MEDS ORDERED: HYDROmorphone 0.5 MG/0.5 ML Syringe IVPUSH ONE ×2 (11:48→13:35)
[2023-10-16 17:08] VITALS: BP 160/76; PULSE 71
== END 2023-10-16 14:03 | disposition home or self-care (01) ==
LOC: JD.ED 10:16
DX: M54.50 Low back pain, unspecified (principal); G89.29 Other chronic pain; M54.6 Pain in thoracic spine; I10 Essential (primary) hypertension; K21.9 Gastro-esophageal reflux disease without esophagitis; J44.9 Chronic obstructive pulmonary disease, unspecified; Z90.710 Acquired absence of both cervix and uterus; Z90.49 Acquired absence of other specified parts of digestive tract; Z79.899 Other long term (current) drug therapy; Z88.5 Allergy status to narcotic agent; Z86.16 Personal history of COVID-19
CPT/HCPCS: 72128; 72131; 96374; 96375; 96376; 99283; J1170; J2405

== ENCOUNTER 2024-08-18 05:39 | Emergency (ER) | payer MEDICARE, OTHER ==
[2024-08-18 06:42] LABS: BASOPHILS PERCENT AUTO 0.6 % (0.0-1.0); EOSINOPHILS ABSOLUTE AUTO 0.2 K/mm3 (0.0-0.4); HEMATOCRIT 39.6 % (37.0-47.0); HEMOGLOBIN 13.6 gm/dl (12.0-16.0); IMMATURE GRAN ABSOLUTE AUTO 0.01 K/mm3 (0.00-0.05); IMMATURE GRAN PERCENT AUTO 0.2 % (0.0-0.4); LYMPHOCYTES ABSOLUTE AUTO 1.2 K/mm3 (1.0-4.8); LYMPHOCYTES PERCENT AUTO 25.2 % (24.0-44.0); MEAN CORPUSCULAR HEMOGLOBIN 31.8 pg (28.0-32.0); MEAN CORPUSCULAR HGB CONC 34.3 g/dl (32.0-36.0); MEAN CORPUSCULAR VOLUME 92.5 fl (83.0-99.0); MONOCYTES ABSOLUTE AUTO 0.7 K/mm3 (0.0-0.8); MONOCYTES PERCENT AUTO 14.6 % (0.0-8.0); NEUTROPHILS ABSOLUTE AUTO 2.6 K/mm3 (1.8-7.7); NEUTROPHILS PERCENT AUTO 54.4 % (41.0-71.0); PLATELET COUNT,PLT 170 K/mm3 (150-400); RED BLOOD CELL COUNT 4.28 M/mm3 (4.10-5.30)
[2024-08-18] MEDS: Sodium Chloride 0.9% 1,000 ML IV SCH (06:42)
[2024-08-18 06:52] LABS: A/G RATIO 1.2 (1-2); ALBUMIN 3.7 g/dl (3.4-5.0); ANION GAP 13.7 (5-15); BILIRUBIN TOTAL 0.7 mg/dL (0.2-1.0); BUN/CREATININE RATIO 28.6 (14-18); C-REACTIVE PROTEIN 0.15 mg/dL (<0.30); CALCIUM 9.3 mg/dL (8.5-10.1); CREATININE 1.4 mg/dL (0.55-1.02); EST CRCL DRUG DOSING (CG) 24.91 mL/min; MAGNESIUM 2.2 mg/dL (1.8-2.4); POTASSIUM,K 3.7 mEq/L (3.5-5.1); PROTEIN TOTAL,TP 6.8 g/dl (6.4-8.2)
[2024-08-18 06:58] LABS: LACTIC ACID 0.4 mmol/L (0.4-2.0)
[2024-08-18 07:31] LABS: APPEARANCE,URINE CLEAR (Clear); BILIRUBIN,URINE NEGATIVE (Negative); COLOR,URINE YELLOW (Yellow); GLUCOSE,URINE NEGATIVE (Negative); KETONES,URINE NEGATIVE (Negative); LEUKOCYTE ESTERASE,URINE 1+ (Negative); NITRITE,URINE NEGATIVE (Negative); OCCULT BLOOD,URINE NEGATIVE (Negative); PROTEIN,URINE 1+ (Negative); UROBILINOGEN,URINE 0.2 (0.2-1.0)
[2024-08-18 08:12] LABS: BACTERIA,URINE FEW /hpf (FEW); EPITHELIAL CELLS,URINE 0-5 /hpf (0-5); MUCUS,URINE FEW /hpf (FEW); RBC,URINE 0-5 /hpf (0-5)
[2024-08-18 09:12] VITALS: BP 148/68; PULSE 58
== END 2024-08-18 09:11 | disposition home or self-care (01) ==
LOC: JD.ED 05:39
DX: N39.0 Urinary tract infection, site not specified (principal); I10 Essential (primary) hypertension; J44.89 Other specified chronic obstructive pulmonary disease; Z86.16 Personal history of COVID-19; Z90.49 Acquired absence of other specified parts of digestive tract; Z87.891 Personal history of nicotine dependence; Z79.899 Other long term (current) drug therapy; Z88.5 Allergy status to narcotic agent; Z79.891 Long term (current) use of opiate analgesic
CPT/HCPCS: 36415; 71045; 74176; 80053; 81001; 83605; 83690; 83735; 83880; 85025; 86140; 87086; 93005; 96360; 96361; 99284; J7030; 93010

== ENCOUNTER 2024-10-03 21:54 | Emergency (ER) | payer MEDICARE, OTHER ==
[2024-10-03 23:10] LABS: BASOPHILS PERCENT AUTO 0.2 % (0.0-1.0); EOSINOPHILS ABSOLUTE AUTO 0.2 K/mm3 (0.0-0.4); EOSINOPHILS PERCENT AUTO 2.5 % (0.0-6.0); HEMATOCRIT 35.4 % (37.0-47.0); HEMOGLOBIN 12.1 gm/dl (12.0-16.0); IMMATURE GRAN ABSOLUTE AUTO 0.04 K/mm3 (0.00-0.05); IMMATURE GRAN PERCENT AUTO 0.5 % (0.0-0.4); LYMPHOCYTES ABSOLUTE AUTO 1.2 K/mm3 (1.0-4.8); LYMPHOCYTES PERCENT AUTO 14.3 % (24.0-44.0); MEAN CORPUSCULAR HEMOGLOBIN 31.8 pg (28.0-32.0); MEAN CORPUSCULAR HGB CONC 34.2 g/dl (32.0-36.0); MEAN CORPUSCULAR VOLUME 93.2 fl (83.0-99.0); MEAN PLATELET VOLUME 9.4 fl (9.4-12.3); MONOCYTES ABSOLUTE AUTO 0.9 K/mm3 (0.0-0.8); MONOCYTES PERCENT AUTO 10.7 % (0.0-8.0); NEUTROPHILS ABSOLUTE AUTO 5.8 K/mm3 (1.8-7.7); NEUTROPHILS PERCENT AUTO 71.8 % (41.0-71.0); PLATELET COUNT,PLT 155 K/mm3 (150-400); WHITE BLOOD CELL COUNT,WBC 8.03 K/mm3 (3.9-11.3)
[2024-10-03 23:41] LABS: ALBUMIN 3.2 g/dl (3.4-5.0); ANION GAP 12.8 (5-15); BILIRUBIN TOTAL 0.4 mg/dL (0.2-1.0); CALCIUM 8.5 mg/dL (8.5-10.1); EST CRCL DRUG DOSING (CG) 14.5 mL/min; POTASSIUM,K 3.8 mEq/L (3.5-5.1); PROTEIN TOTAL,TP 6.5 g/dl (6.4-8.2)
[2024-10-04] MEDS ORDERED: Azithromycin 250 MG Tab PO SCH (00:36)
[2024-10-04] MEDS: Azithromycin 250 MG Tab PO SCH (00:43)
[2024-10-04 00:51] VITALS: BP 135/98; PULSE 80
== END 2024-10-04 00:51 | disposition home or self-care (01) ==
LOC: JD.ED 21:54
DX: M54.6 Pain in thoracic spine (principal); I48.91 Unspecified atrial fibrillation; I10 Essential (primary) hypertension; J44.89 Other specified chronic obstructive pulmonary disease; K21.9 Gastro-esophageal reflux disease without esophagitis; Z86.16 Personal history of COVID-19; Z90.49 Acquired absence of other specified parts of digestive tract; Z90.710 Acquired absence of both cervix and uterus; Z96.649 Presence of unspecified artificial hip joint; Z96.659 Presence of unspecified artificial knee joint; Z88.5 Allergy status to narcotic agent; Z79.51 Long term (current) use of inhaled steroids; Z79.01 Long term (current) use of anticoagulants; Z79.899 Other long term (current) drug therapy
CPT/HCPCS: 36415; 71046; 80053; 83880; 84484; 85025; 87428; 93005; 99285; A9270; 93010; 99283

== ENCOUNTER 2024-10-07 12:51 | Inpatient (IN) | payer MEDICARE, OTHER ==
[2024-10-07 14:12] LABS: BASOPHILS PERCENT AUTO 0.2 % (0.0-1.0); EOSINOPHILS ABSOLUTE AUTO 0.2 K/mm3 (0.0-0.4); HEMATOCRIT 40.3 % (37.0-47.0); IMMATURE GRAN ABSOLUTE AUTO 0.07 K/mm3 (0.00-0.05); IMMATURE GRAN PERCENT AUTO 0.6 % (0.0-0.4); LYMPHOCYTES ABSOLUTE AUTO 0.9 K/mm3 (1.0-4.8); LYMPHOCYTES PERCENT AUTO 7.6 % (24.0-44.0); MEAN CORPUSCULAR HEMOGLOBIN 31.7 pg (28.0-32.0); MEAN CORPUSCULAR HGB CONC 34.7 g/dl (32.0-36.0); MEAN CORPUSCULAR VOLUME 91.4 fl (83.0-99.0); MEAN PLATELET VOLUME 10.1 fl (9.4-12.3); MONOCYTES PERCENT AUTO 8.5 % (0.0-8.0); NEUTROPHILS ABSOLUTE AUTO 9.2 K/mm3 (1.8-7.7); NEUTROPHILS PERCENT AUTO 81.1 % (41.0-71.0); PLATELET COUNT,PLT 192 K/mm3 (150-400); RED BLOOD CELL COUNT 4.41 M/mm3 (4.10-5.30); WHITE BLOOD CELL COUNT,WBC 11.37 K/mm3 (3.9-11.3)
[2024-10-07 14:32] LABS: ALBUMIN 3.7 g/dl (3.4-5.0); ANION GAP 18.2 (5-15); BILIRUBIN TOTAL 0.5 mg/dL (0.2-1.0); BUN/CREATININE RATIO 28.6 (14-18); C-REACTIVE PROTEIN 0.35 mg/dL (<0.30); CALCIUM 9.5 mg/dL (8.5-10.1); CREATININE 2.2 mg/dL (0.55-1.02); EST CRCL DRUG DOSING (CG) 15.18 mL/min; POTASSIUM,K 4.2 mEq/L (3.5-5.1); PROTEIN TOTAL,TP 7.4 g/dl (6.4-8.2)
[2024-10-07] MEDS: Ondansetron 4 MG/2 ML SDV IV PRN (15:29)
[2024-10-07] MEDS: Sodium Chloride 0.9% 1,000 ML IV ONE (15:29)
[2024-10-07] MEDS ORDERED: FLU (Fluad Triv) TS24-25 (65UP)/MF59C/PF 45 MCG/0.5 ML Syringe IM ONE (17:00)
[2024-10-07] MEDS: traMADol 50 MG Tab PO SCH (17:05)
[2024-10-07] MEDS: Ondansetron 4 MG/2 ML SDV IVPUSH ONE (17:06)
[2024-10-07] MEDS: Benzocaine 20% Topical Spray UD MUCMEM ONE (17:30)
[2024-10-07] MEDS ORDERED: Albuterol 0.083% 2.5 MG/3 ML Neb Soln NEB PRN (19:44)
[2024-10-07] MEDS: Sodium Chloride 0.9% 1,000 ML IV SCH (21:53)
[2024-10-08] MEDS: traMADol 50 MG Tab PO PRN (03:44)
[2024-10-08 04:38] LABS: BASOPHILS PERCENT AUTO 0.1 % (0.0-1.0); EOSINOPHILS ABSOLUTE AUTO 0.3 K/mm3 (0.0-0.4); EOSINOPHILS PERCENT AUTO 3.1 % (0.0-6.0); HEMOGLOBIN 12.2 gm/dl (12.0-16.0); IMMATURE GRAN ABSOLUTE AUTO 0.13 K/mm3 (0.00-0.05); IMMATURE GRAN PERCENT AUTO 1.6 % (0.0-0.4); MEAN CORPUSCULAR HEMOGLOBIN 31.2 pg (28.0-32.0); MEAN CORPUSCULAR HGB CONC 34.9 g/dl (32.0-36.0); MEAN CORPUSCULAR VOLUME 89.5 fl (83.0-99.0); MEAN PLATELET VOLUME 10.2 fl (9.4-12.3); MONOCYTES ABSOLUTE AUTO 0.8 K/mm3 (0.0-0.8); MONOCYTES PERCENT AUTO 9.6 % (0.0-8.0); NEUTROPHILS PERCENT AUTO 73.6 % (41.0-71.0); PLATELET COUNT,PLT 163 K/mm3 (150-400); RED BLOOD CELL COUNT 3.91 M/mm3 (4.10-5.30)
[2024-10-08 05:09] LABS: ANION GAP 14.9 (5-15); BUN/CREATININE RATIO 32.3 (14-18); C-REACTIVE PROTEIN 0.4 mg/dL (<0.30); CALCIUM 8.1 mg/dL (8.5-10.1); CREATININE 1.3 mg/dL (0.55-1.02); EST CRCL DRUG DOSING (CG) 25.7 mL/min; POTASSIUM,K 2.9 mEq/L (3.5-5.1)
[2024-10-08] MEDS: Pantoprazole 40 MG Vial IVPUSH SCH (08:13)
[2024-10-08] MEDS: Potassium Chloride 10 MEQ in Premix Bag 1 BAG IV SCH (08:16)
[2024-10-08] MEDS: Trelegy Ellipta **PTOM INH SCH (08:41)
[2024-10-08] MEDS: Dextrose 5%-0.45% NaCl 1,000 ML IV SCH (14:09)
[2024-10-08] MEDS: Rivaroxaban 15 MG Tab PO SCH (18:55)
[2024-10-08] MEDS: Acetaminophen 325 MG Tab PO PRN (23:33)
[2024-10-09] MEDS: Potassium Chloride 20 MEQ Tab.ER PO ONE (09:06)
[2024-10-09 10:52] VITALS: BP 159/72; PULSE 60
[2024-10-09 11:31] LABS: ANION GAP 13.4 (5-15); CALCIUM 8.3 mg/dL (8.5-10.1); CREATININE 0.9 mg/dL (0.55-1.02); EST CRCL DRUG DOSING (CG) 37.12 mL/min; POTASSIUM,K 3.4 mEq/L (3.5-5.1)
== END 2024-10-09 10:42 | disposition home or self-care (01) | DRG 389 ==
LOC: JD.ED 12:51 → JD.MS 15:23
PROVIDERS: ADMIT Family Medicine; ATTEND Family Medicine
DX: K56.7 Ileus, unspecified (principal); K56.699 Other intestinal obstruction unspecified as to partial versus complete obstruction; J96.11 Chronic respiratory failure with hypoxia; K52.9 Noninfective gastroenteritis and colitis, unspecified; I48.91 Unspecified atrial fibrillation; I10 Essential (primary) hypertension; J44.9 Chronic obstructive pulmonary disease, unspecified; J45.909 Unspecified asthma, uncomplicated; K21.9 Gastro-esophageal reflux disease without esophagitis; Z88.5 Allergy status to narcotic agent; G62.9 Polyneuropathy, unspecified; Z90.49 Acquired absence of other specified parts of digestive tract; H54.7 Unspecified visual loss; Z96.659 Presence of unspecified artificial knee joint; Z96.649 Presence of unspecified artificial hip joint; E86.0 Dehydration; K59.09 Other constipation; Z86.16 Personal history of COVID-19; Z90.710 Acquired absence of both cervix and uterus; Z88.8 Allergy status to other drugs, medicaments and biological substances; Z99.81 Dependence on supplemental oxygen; Z79.01 Long term (current) use of anticoagulants; Z79.51 Long term (current) use of inhaled steroids; Z79.899 Other long term (current) drug therapy; Z87.440 Personal history of urinary (tract) infections; Z87.81 Personal history of (healed) traumatic fracture; Z98.891 History of uterine scar from previous surgery; Z98.890 Other specified postprocedural states
CPT/HCPCS: 36415; 71045; 71045-26; 74018; 74018-26; 74176; 74176-26; 80048; 80053; 83690; 83735; 83880; 85025; 86140; 94640; 94760; 94761; 99285; A9270-GY; J2405; J2470; J3480; J3490; J7030; J7799

== ENCOUNTER 2024-11-10 19:17 | Emergency (ER) | payer MEDICARE, OTHER ==
[2024-11-10] MEDS ORDERED: Sodium Chloride 0.9% 10 ML Syringe FLUSH PRN (19:35)
[2024-11-10 19:43] LABS: BASOPHILS PERCENT AUTO 0.4 % (0.0-1.0); EOSINOPHILS ABSOLUTE AUTO 0.2 K/mm3 (0.0-0.4); EOSINOPHILS PERCENT AUTO 4.4 % (0.0-6.0); HEMATOCRIT 39.1 % (37.0-47.0); HEMOGLOBIN 13.1 gm/dl (12.0-16.0); IMMATURE GRAN ABSOLUTE AUTO 0.01 K/mm3 (0.00-0.05); IMMATURE GRAN PERCENT AUTO 0.2 % (0.0-0.4); LYMPHOCYTES ABSOLUTE AUTO 1.1 K/mm3 (1.0-4.8); LYMPHOCYTES PERCENT AUTO 23.5 % (24.0-44.0); MEAN CORPUSCULAR HEMOGLOBIN 30.8 pg (28.0-32.0); MEAN CORPUSCULAR HGB CONC 33.5 g/dl (32.0-36.0); MEAN PLATELET VOLUME 9.7 fl (9.4-12.3); MONOCYTES ABSOLUTE AUTO 0.6 K/mm3 (0.0-0.8); MONOCYTES PERCENT AUTO 13.3 % (0.0-8.0); NEUTROPHILS ABSOLUTE AUTO 2.8 K/mm3 (1.8-7.7); NEUTROPHILS PERCENT AUTO 58.2 % (41.0-71.0); PLATELET COUNT,PLT 192 K/mm3 (150-400); RED BLOOD CELL COUNT 4.25 M/mm3 (4.10-5.30); WHITE BLOOD CELL COUNT,WBC 4.73 K/mm3 (3.9-11.3)
[2024-11-10 20:33] LABS: ALBUMIN 3.5 g/dl (3.4-5.0); ANION GAP 14.4 (5-15); BILIRUBIN TOTAL 0.5 mg/dL (0.2-1.0); BUN/CREATININE RATIO 14.5 (14-18); CREATININE 1.1 mg/dL (0.55-1.02); EST CRCL DRUG DOSING (CG) 30.37 mL/min; MAGNESIUM 1.8 mg/dL (1.8-2.4); PROTEIN TOTAL,TP 6.9 g/dl (6.4-8.2)
[2024-11-10 20:51] LABS: POTASSIUM,K 4.4 mEq/L (3.5-5.1)
[2024-11-11 00:34] VITALS: BP 180/86; PULSE 71
== END 2024-11-11 00:23 | disposition home or self-care (01) ==
LOC: JD.ED 19:17
DX: R07.89 Other chest pain (principal); I48.91 Unspecified atrial fibrillation; I10 Essential (primary) hypertension; J44.89 Other specified chronic obstructive pulmonary disease; K21.9 Gastro-esophageal reflux disease without esophagitis; Z88.5 Allergy status to narcotic agent; Z88.8 Allergy status to other drugs, medicaments and biological substances; Z79.01 Long term (current) use of anticoagulants; Z79.899 Other long term (current) drug therapy; Z86.16 Personal history of COVID-19; Z90.710 Acquired absence of both cervix and uterus
CPT/HCPCS: 36415; 71045; 71045-26; 80053; 83735; 83880; 84484; 85025; 85379; 93005; 93010; 99284; 99285